=== PATIENT | female | born 1935 | race Caucasian/White ===

== ENCOUNTER 2019-07-13 01:10 | Day surgery (SDC) | payer MEDICARE, SELFPAY ==
[2019-07-06 14:05] VITALS: BMI 29.1
--- NOTE | 2019-07-11 13:28 | WPDANESEPP ---
Anes - Eval Pre Procedure Procedure: Operation Date: 07/13/19 08:30 Proposed Procedures p Esophagogastroduodenoscopy - Loco Danielle MD Date/Time: 07/11/19 13:28 Pre Op Diagnosis: Ulcer Patient Data Age: 83 Gender: F Height: 5 ft 1 in Weight: 70 kg Allergies Allergy/AdvReac Type Severity Reaction Status Date / Time Iodinated Contrast Media Allergy Severe severe Verified 07/06/19 13:52 itching Penicillins Allergy Mild Rash Verified 07/06/19 13:51 Home Medications Medication Instructions Recorded Confirmed Type Spiriva with HandiHaler 18 mcg INHALATION DAILY 04/02/19 07/06/19 History gabapentin 600 mg PO DAILY 04/02/19 07/06/19 History gabapentin 900 mg PO HS 04/02/19 07/06/19 History levothyroxine 100 mcg PO DAILY 04/02/19 07/06/19 History Brilinta 90 mg PO Q12HR #60 tablet NS 04/06/19 07/06/19 Rx aspirin 81 mg PO QAM #30 tablet 04/06/19 07/06/19 Rx atorvastatin 80 mg PO DAILY #30 tablet 04/06/19 07/06/19 Rx furosemide 20 mg PO DAILY #30 tablet 04/22/19 07/06/19 Rx lisinopril 2.5 mg PO QAM #30 tablet 04/22/19 07/06/19 Rx potassium chloride 10 meq PO DAILY #30 tablet 04/22/19 07/06/19 Rx pantoprazole 40 mg PO Q12HR #60 tablet 05/08/19 07/06/19 Rx carvedilol 3.125 mg PO BID 07/06/19 07/06/19 History ECG: [place] [address] [place] [address] Electrocardiograph Report Signed Patient: Mamie Beckham KMR#: [id number] : 1935cct:[id number] Age/Sex: 83 / FADM Date: 05/07/19 Loc: [id number]: Clau Lowery DO Ordering Physician: Jonah Becker III, DO Date of Service: 05/07/19 Procedure(s): CA 12 lead EKG Accession Number(s): [id number] cc: ~ Measurements Intervals [place] Rate: 89 P: -6 CA: 121 QRS: -13 QRSD: 86 T: 187 QT: 371 QTc: 454 Interpretive Statements SINUS RHYTHM ST-T WAVE ABNORMALITY IN ANT/LAT LEADS- CONSIDER ISCHEMIA BASELINE ARTIFACT- V4 ABNORMAL ECG Electronically Signed On 05-07-2019 7:00:56 GENDER STUDIES PROFESSOR by Scooter Zamudio D.O. Dictated By: Scooter Zamudio DO 05/07/19 0154 Other Studies: 04/08/19 Cardiac Cath: LAD PCI w/drug eluting stent s/p OH, EF 25% Patient hx anesthesia problems: none Family hx anesthesia problems: none PMFSH Social History Social History Smoking packs per day: 1 Smoking cigarettes per day: 20.0 Years smoked: 50 Smoking pack-years: 50.00 Smoking status: Former smoker Tobacco type: cigarettes Second hand tobacco smoke exposure: Yes Smoking end date: 03/27/19 Additional smoking assessment comments: smoked off and on those 50 years Alcohol intake: never Substance use: never Gender identity (if verbalized by the patient): Female Spiritual care concerns: No Agree to blood products: Yes Exam Day of Procedure 07/11/19 13:28
--- NOTE | 2019-07-11 13:51 | WPDANESEPP ---
Anes - Eval Pre Procedure Procedure: Operation Date: 07/13/19 08:30 Proposed Procedures p Esophagogastroduodenoscopy - Loco Danielle MD Date/Time: 07/11/19 13:51 Pre Op Diagnosis: Ulcer Patient Data Age: 83 Gender: F Height: 5 ft 1 in Weight: 70 kg Allergies Allergy/AdvReac Type Severity Reaction Status Date / Time Iodinated Contrast Media Allergy Severe severe Verified 07/06/19 13:52 itching Penicillins Allergy Mild Rash Verified 07/06/19 13:51 Home Medications Medication Instructions Recorded Confirmed Type Spiriva with HandiHaler 18 mcg INHALATION DAILY 04/02/19 07/06/19 History gabapentin 600 mg PO DAILY 04/02/19 07/06/19 History gabapentin 900 mg PO HS 04/02/19 07/06/19 History levothyroxine 100 mcg PO DAILY 04/02/19 07/06/19 History Brilinta 90 mg PO Q12HR #60 tablet NS 04/06/19 07/06/19 Rx aspirin 81 mg PO QAM #30 tablet 04/06/19 07/06/19 Rx atorvastatin 80 mg PO DAILY #30 tablet 04/06/19 07/06/19 Rx furosemide 20 mg PO DAILY #30 tablet 04/22/19 07/06/19 Rx lisinopril 2.5 mg PO QAM #30 tablet 04/22/19 07/06/19 Rx potassium chloride 10 meq PO DAILY #30 tablet 04/22/19 07/06/19 Rx pantoprazole 40 mg PO Q12HR #60 tablet 05/08/19 07/06/19 Rx carvedilol 3.125 mg PO BID 07/06/19 07/06/19 History Patient hx anesthesia problems: none Family hx anesthesia problems: none PMFSH Past Medical History Medical History Anxiety COPD (chronic obstructive pulmonary disease) Diabetes mellitus DVT (deep venous thrombosis) Emphysema of lung GERD (gastroesophageal reflux disease) Gout HLD (hyperlipidemia) Hypertension Hypothyroidism NSTEMI (non-ST elevated myocardial infarction) Peripheral neuropathy Pneumonia Rheumatoid arthritis Skin cancer Tobacco abuse Ulcer Surgical History Surgical History (Updated 07/11/19 @ 13:51 by Mela Padilla CRNA) H/O heart artery stent LAD drug-eluting stent H/O: hysterectomy History of appendectomy History of cholecystectomy History of total bilateral knee replacement Social History Social History Smoking packs per day: 1 Smoking cigarettes per day: 20.0 Years smoked: 50 Smoking pack-years: 50.00 Smoking status: Former smoker Tobacco type: cigarettes Second hand tobacco smoke exposure: Yes Smoking end date: 03/27/19 Additional smoking assessment comments: smoked off and on those 50 years Alcohol intake: never Substance use: never Gender identity (if verbalized by the patient): Female Spiritual care concerns: No Agree to blood products: Yes Exam Day of Procedure 07/11/19 13:51
--- NOTE | 2019-07-13 07:25 | PM.HPGS ---
History of Present Illness History of Present Illness Consent: Risks, benefits, and alternatives have been discussed and questions answered. Patient agrees to proceed with procedure. Chief complaint: Ulcer Narrative: Mamie Beckham is a 83 year old female was found have a large duodenal ulcer 2 months ago. At that time she was taking diclofenac which has been discontinued. She is no longer losing weight and in fact has gained 8 lb, probably due in part to the fact that she also stopped smoking 3 months ago. [facility] Past Medical History Medical History Anxiety COPD (chronic obstructive pulmonary disease) Diabetes mellitus DVT (deep venous thrombosis) Emphysema of lung GERD (gastroesophageal reflux disease) Gout HLD (hyperlipidemia) Hypertension Hypothyroidism NSTEMI (non-ST elevated myocardial infarction) Peripheral neuropathy Pneumonia Rheumatoid arthritis Skin cancer Tobacco abuse Ulcer Surgical History Surgical History H/O heart artery stent LAD drug-eluting stent H/O: hysterectomy History of appendectomy History of cholecystectomy History of total bilateral knee replacement Family History Family History Other Renal cancer CAD (coronary artery disease) Father Acute myocardial infarction Father Bladder cancer CAD (coronary artery disease) Mother CAD (coronary artery disease) Acute myocardial infarction Social History Social History Smoking packs per day: 1 Smoking cigarettes per day: 20.0 Years smoked: 50 Smoking pack-years: 50.00 Smoking status: Former smoker Tobacco type: cigarettes Second hand tobacco smoke exposure: Yes Smoking end date: 03/27/19 Additional smoking assessment comments: smoked off and on those 50 years Alcohol intake: never Substance use: never Gender identity (if verbalized by the patient): Female Spiritual care concerns: No Agree to blood products: Yes Meds Home Medications and Allergies Home Medications Medication Instructions Recorded Confirmed Type Spiriva with HandiHaler 18 mcg INHALATION DAILY 04/02/19 07/06/19 History gabapentin 600 mg PO DAILY 04/02/19 07/06/19 History gabapentin 900 mg PO HS 04/02/19 07/06/19 History levothyroxine 100 mcg PO DAILY 04/02/19 07/06/19 History Brilinta 90 mg PO Q12HR #60 tablet NS 04/06/19 07/06/19 Rx aspirin 81 mg PO QAM #30 tablet 04/06/19 07/06/19 Rx atorvastatin 80 mg PO DAILY #30 tablet 04/06/19 07/06/19 Rx furosemide 20 mg PO DAILY #30 tablet 04/22/19 07/06/19 Rx lisinopril 2.5 mg PO QAM #30 tablet 04/22/19 07/06/19 Rx potassium chloride 10 meq PO DAILY #30 tablet 04/22/19 07/06/19 Rx pantoprazole 40 mg PO Q12HR #60 tablet 05/08/19 07/06/19 Rx carvedilol 3.125 mg PO BID 07/06/19 07/06/19 History Allergies Allergy/AdvReac Type Severity Reaction Status Date / Time Iodinated Contrast Media Allergy Severe severe Verified 07/13/19 07:26 itching Penicillins Allergy Mild Rash Verified 07/13/19 07:26 Exam Const: General: alert Orientation/consciousness: patient oriented x3 Resp: Auscultation: clear to auscultation bilaterally Cardio: Rhythm: regular rhythm GI: GI Palp: Yes Soft to palpation and No Tenderness to palpation present (GI) Neuro: General: patient oriented x3 Assessment and Plan Assessment and plan (1) Duodenal ulcer: Code(s): K26.9 - Duodenal ulcer, unspecified as acute or chronic, without hemorrhage or perforation Status: Acute Assessment and Plan: EGD with possible biopsy or dilatation or cautery.
[2019-07-13 07:30] VITALS: BP 127/79; PULSE 75; RESP 18; TEMP 36.3; O2SAT 98
[2019-07-13] MEDS: LACTATED RINGERS 1,000 ML 150 ML IV CONT (07:42)
--- NOTE | 2019-07-13 08:02 | WPDANESEFPP ---
Anes - Eval Final PreProcedure Day of Procedure 07/13/19 08:02 Patient weight: overweight Heart: regular rate and rhythm Lungs: clear to auscultation Airway: Mallampati scale class II Neurological: alert and oriented Last oral intake: >/= 8 hours ASA classification: III Emergent: no Anesthetic plan: proceed Anesthesia type and monitoring: general GIVS and standard monitoring Informed Consent: The patient's anesthetic plan and its attendant risks and benefits were discussed with the patient/family/POA. Questions were solicited and answers provided to the satisfaction of the patient/family/POA.
[2019-07-13 08:38] VITALS: BP 102/39; PULSE 59; RESP 19; O2SAT 100
[2019-07-13 08:48] VITALS: BP 108/39; PULSE 66; RESP 19; O2SAT 100
[2019-07-13 08:58] VITALS: BP 125/40; PULSE 66; RESP 19; O2SAT 100
== END 2019-07-13 09:13 | disposition home or self-care (01) ==
PROVIDERS: PCP Family Medicine; Visit Provider Internal Medicine Gastroenterology
PROC: 0DJ08ZZ Inspection of Upper Intestinal Tract, Via Natural or Artificial Opening Endoscopic (ICD-10-PCS; CPT 43235; principal; 2019-07-13 08:30)
DX: Z09 Encounter for follow-up examination after completed treatment for conditions other than malignant neoplasm (principal); K21.9 Gastro-esophageal reflux disease without esophagitis; Z87.11 Personal history of peptic ulcer disease; Z95.5 Presence of coronary angioplasty implant and graft; I10 Essential (primary) hypertension; E78.5 Hyperlipidemia, unspecified; E03.9 Hypothyroidism, unspecified; I25.2 Old myocardial infarction; E11.40 Type 2 diabetes mellitus with diabetic neuropathy, unspecified; M10.9 Gout, unspecified; J44.9 Chronic obstructive pulmonary disease, unspecified; M06.9 Rheumatoid arthritis, unspecified; F41.9 Anxiety disorder, unspecified; F17.210 Nicotine dependence, cigarettes, uncomplicated; Z79.01 Long term (current) use of anticoagulants; Z79.82 Long term (current) use of aspirin; Z86.718 Personal history of other venous thrombosis and embolism
CPT/HCPCS: 43235; J2704; J7120

== ENCOUNTER 2020-04-21 10:01 | Outpatient (CLI) | payer MEDICARE, SELFPAY ==
--- NOTE | ~2020-04-21 | CT_ITS ---
EXAMINATION: CT lung screening EXAM DATE: 04/21/2020 10:21 INDICATION: Personal history of nicotine dependence. TECHNIQUE: Spiral low dose CT of the chest without contrast. Axial, coronal and sagittal images were reviewed. The dose-length product (DLP) for this examination was 73.15 mGy-cm. The exposure was ta ilored according to patient size (auto mA exposure control), and iterative reconstruction (ASIR) was used as additional dose reduction technique. There is no prior study for comparison. FINDINGS: There is mild emphysema. The ascending aorta measures 4.5 cm, mildly dilated. Tracheobron chial tree is patent. There is no mediastinal, hilar or axillary lymphadenopathy. There are no pl eural or pericardial effusions. There is no pneumothorax. Heart normal in size. There is modera te left anterior descending coronary arterial calcification, arterial sclerosis. There are cholecyste ctomy clips. There is thoracic spondylosis without osteoblastic or osteolytic lesions identified. IMPRESSION: 1. Lung-RADS category 1S, negative (<1%chance of malignancy); recommend continued LDCT screening in 1 year. 2. Mildly aneurysmal ascending aorta. 3. Moderate LAD coronary artery calcifications. Reviewed, dictated and finalized at location A. ERTINE INSTALLER IMPRESSION: 1. Lung-RADS category 1S, negative (<1%chance of malignancy); recommend contin ued LDCT screening in 1 year. 2. Mildly aneurysmal ascending aorta. 3. Moderate LAD coronary artery calcifications.
== END 2020-04-21 10:02 | disposition home or self-care (01) ==
PROVIDERS: PCP Family Medicine; Visit Provider Nurse Practitioner Family
DX: Z12.2 Encounter for screening for malignant neoplasm of respiratory organs (principal); Z87.891 Personal history of nicotine dependence
CPT/HCPCS: G0297

== ENCOUNTER 2021-04-08 19:22 | Emergency (ER) | payer MEDICARE, SELFPAY ==
[2021-04-08] VITALS (7 sets, daily range): BP systolic 112–157; BP diastolic 59–76; PULSE 75–91; RESP 14–22; TEMP 36.8; O2SAT 94–97
--- NOTE | ~2021-04-08 | XR_ITS ---
XR chest 2V DATE: 04/08/2021 19:58 INDICATION: Shortness of breath, congestion, allergies. Rhinorrhea. TECHNIQUE: PA and lateral views COMPARISON: 04/21/2020 CT lung screening FINDINGS: Normal heart size. No hilar or mediastinal enlargement. The lungs are hyperinflated but clear of infiltrate or consolidation. 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 No pleural effusion or pulmonary vascular congestion o r pneumothorax. Aortic calcification and mild tortuosity. Thoracolumbar scoliosis. Diffuse osteopenia. Status post cholecystectomy. IMPRESSION: Bilateral hyperinflation consistent with emphysema No active cardiopulmonary disease Reviewed, dictated and finalized at location A.
--- NOTE | 2021-04-08 19:30 | ECG_ITS ---
Measurements Intervals [place] Rate: 89 P: 60 SC: 156 QRS: -3 QRSD: 80 T: 58 QT: 361 QTc: 440 Interpretive Statements SINUS RHYTHM BORDERLINE ST-T WAVE ABNORMALITY- HIGH LATERAL LEADS BASELINE ARTIFACT- I, II, III, AVR, AVL, AVF, V1-V2, V6 BORDERLINE ECG Electronically Signed On 04-08-2021 20:06:36 CDT by Scooter Zamudio D.O.
[2021-04-08 19:54] LABS: Basophils Absolute Auto 0.1 K/mm3 (0.0-0.1); Basophils Percent Auto 0.5 % (0.2-1.2); Eosinophils Absolute Auto 0.2 K/mm3 (0-0.3); Eosinophils Percent Auto 1.4 % (0-4.4); Hematocrit 40.3 % (37.0-47.0); Hemoglobin 13.3 g/dL (12.0-15.0); Immature Granulocyte Absolute 0.04 K/mm3 (0.00-0.031); Immature Granulocyte Percent A 0.3 % (0-0.5); Lymphocytes Absolute Auto 4.21 K/mm3 (0.9-3.2); Lymphocytes Percent Auto 31.9 % (18.3-44.2); Mean Corpuscular Hemoglobin 30.9 pg (26-34); Mean Corpuscular Volume 93.7 fl (80-100); Mean Platelet Volume 10.7 fl (7.4-10.4); Monocytes Absolute Auto 0.7 K/mm3 (0.1-0.6); Monocytes Percent Auto 5.3 % (2.6-8.5); Neutrophils Percent Auto 60.6 % (45.5-73.1); Platelet Count Result 251 k/mm3 (150-375); White Blood Count 13.2 K/mm3 (4.5-10.0)
[2021-04-08 20:12] LABS: Prothrombin Time 13.2 Seconds (11.1-14.7)
[2021-04-08 20:13] LABS: Anion Gap 10 mmol/L (8-16); Blood Urea Nitrogen 19 mg/dL (7-17); Calcium 9.9 mg/dL (8.4-10.2); Carbon Dioxide 24 mmol/L (22-30); Chloride 101 mmol/L (98-107); Estimated CRCL calculation 43 ml/min; Estimated Glomerular Filt Rate > 60; Glucose 133 mg/dL (65-110); Partial Thromboplastin Time 25.5 SECONDS (22.3-36.8); Potassium 4.6 mmol/L (3.4-5.0); Sodium 135 mmol/L (137-145)
[2021-04-08 20:24] LABS: NT Pro B Type Natriuretic Pept 473 pg/mL (5-100); Troponin I < 0.012 ng/mL (0.000-0.034)
--- NOTE | 2021-04-08 21:25 | PC.NURSE ---
Pt alert and upright on stretcher at this time. Pt c/o pain in 9/10 in frontal head, but states SOB has improved.
[2021-04-08] MEDS: IPRATROPIUM BR 0.02% INH SOLN 0.5 MG/2.5 ML VIAL INHALATION (21:36)
[2021-04-08] MEDS: ALBUTEROL SULFATE NEB 2.5 MG/0.5 ML INH 5 MG INHALATION (21:36)
--- NOTE | 2021-04-08 21:54 | ED.SOB ---
HPI - SOB/Dyspnea General Chief Complaint: Shortness of Breath/Dyspnea Stated Complaint: short of breath nose running Time Seen by Provider: 04/08/21 20:45 Source: patient and RN notes reviewed Mode of arrival: ambulatory Limitations: no limitations History of Present Illness HPI Narrative: This is an 85 year old female with history of hypertension, coronary artery disease, sinus disease, and COPD who presents for evaluation runny nose and sneezing. She reports she had old carpet removed from her house on yesterday. This afternoon on her return home she develop runny nose, sneezing, sinus congestion, headache. She reports chronic shortness of breath but she does not think it is worse. She denies chest pain, fever, chills, nausea or vomiting. She reports minimal cough. She takes Claritin daily for her sinus disease. She last used her albuterol inhaler at noon. She denies any sick contacts and she is vaccinated for COVID. Related Data Home Medications Medication Instructions Recorded Confirmed Spiriva with HandiHaler 18 mcg INHALATION DAILY 04/02/19 09/09/20 gabapentin 600 mg PO DAILY 04/02/19 09/09/20 gabapentin 900 mg PO HS 04/02/19 09/09/20 levothyroxine 100 mcg PO DAILY 04/02/19 09/09/20 carvedilol 3.125 mg PO BID 07/06/19 09/09/20 Allergies Allergy/AdvReac Type Severity Reaction Status Date / Time Iodinated Contrast Media Allergy Severe severe Verified 04/08/21 23:46 itching Penicillins Allergy Mild Rash Verified 04/08/21 23:46 Review of Systems Review of Systems: All systems reviewed & are unremarkable except as noted in HPI and below PMFSH Past Medical History Medical History (Updated 04/09/21 @ 00:00 by Background Daemon) Anxiety COPD (chronic obstructive pulmonary disease) Diabetes mellitus DVT (deep venous thrombosis) Emphysema of lung GERD (gastroesophageal reflux disease) Gout HLD (hyperlipidemia) Hypertension Hypothyroidism NSTEMI (non-ST elevated myocardial infarction) Peripheral neuropathy Pneumonia Rheumatoid arthritis Skin cancer Tobacco abuse Ulcer Surgical History Surgical History H/O heart artery stent LAD drug-eluting stent H/O: hysterectomy History of appendectomy History of cholecystectomy History of total bilateral knee replacement Family History Family History Other Renal cancer CAD (coronary artery disease) Father Acute myocardial infarction Father Bladder cancer CAD (coronary artery disease) Mother CAD (coronary artery disease) Acute myocardial infarction Social History Social History Smoking packs per day: 1 Smoking cigarettes per day: 20.0 Years smoked: 50 Smoking pack-years: 50.00 Smoking status: Former smoker Tobacco type: cigarettes Second hand tobacco smoke exposure: Yes Smoking end date: 03/27/19 Additional smoking assessment comments: smoked off and on those 50 years Alcohol intake: never Substance use: never Gender identity (if verbalized by the patient): Female Spiritual care concerns: No Agree to blood products: Yes Exam Const: General: no acute distress and alert Orientation/consciousness: patient oriented x3 HENMT: Head: normocephalic and atraumatic Mouth: Yes Normal oral and palatal mucosa present, Yes lip normal and Yes oropharynx normal Eyes: EOM: EOMs intact bilaterally Chest: Chest palpation & inspection: normal inspection of the chest Resp: Effort & Inspection: normal respiratory effort, not labored, no retractions and not tachypneic Auscultation: wheezes expiratory wheezes Cardio: Rate: regular rate Rhythm: regular rhythm Heart sounds: no murmurs GI: GI Palp: Yes Soft to palpation, No Tenderness to palpation present (GI) and No Guarding due to palpation present (GI) Auscultation: normal bowel sounds Skin: Ge
[2021-04-08] MEDS: FLUTICASONE PROPIONATE 0.05% NA SPR 16 GM BTL (*BKC) 2 SPRAY NASAL (22:23)
[2021-04-08] MEDS: predniSONE 20 MG TABLET 60 MG PO (22:24)
[2021-04-08] MEDS: DOXYCYCLINE HYCLATE 100 MG TABLET PO (23:45)
== END 2021-04-08 23:50 | disposition home or self-care (01) ==
PROVIDERS: Emergency Medicine; Emergency Provider General Practice; PCP Family Medicine
DX: J30.9 Allergic rhinitis, unspecified (principal); J44.1 Chronic obstructive pulmonary disease with (acute) exacerbation; D72.829 Elevated white blood cell count, unspecified; I10 Essential (primary) hypertension; I25.10 Atherosclerotic heart disease of native coronary artery without angina pectoris; I25.2 Old myocardial infarction; E11.42 Type 2 diabetes mellitus with diabetic polyneuropathy; M06.9 Rheumatoid arthritis, unspecified; E03.9 Hypothyroidism, unspecified; K21.9 Gastro-esophageal reflux disease without esophagitis; M10.9 Gout, unspecified; J32.9 Chronic sinusitis, unspecified; Z86.718 Personal history of other venous thrombosis and embolism; Z85.828 Personal history of other malignant neoplasm of skin; Z96.653 Presence of artificial knee joint, bilateral; Z95.5 Presence of coronary angioplasty implant and graft; Z87.891 Personal history of nicotine dependence; R94.31 Abnormal electrocardiogram [ECG] [EKG]; Z79.82 Long term (current) use of aspirin
CPT/HCPCS: 36415; 71046; 80048; 83880; 84484; 85025; 85610; 85730; 93005; 94640; 99284; A9270; J7512

== ENCOUNTER 2021-12-08 15:15 | Emergency (ER) | payer MEDICARE, SELFPAY ==
--- NOTE | ~2021-12-08 | XR_ITS ---
EXAMINATION: XR foot LT min 3V DATE: 12/08/2021 16:41 INDICATION: Left foot pain TECHNIQUE: Dorsoplantar, lateral, and 2 oblique views of the left foot were obtained. COMPARISON: None. FINDINGS: There is a questionable lucency in the base of the third proximal phalanx. A plantar calcan eal enthesophyte is noted. There is moderate osteoarthritis of the tibiotalar joint. Mild osteoarthri tis is noted in multiple interphalangeal joints. IMPRESSION: 1. Possible nondisplaced fracture in the base of the third proximal phalanx. Reviewed, dictated and finalized at location B.
--- NOTE | ~2021-12-08 | XR_ITS ---
EXAMINATION: [id number] INDICATION: Left chest pain TECHNIQUE: 3 views of the left ribs were obtained. COMPARISON: None. FINDINGS: The bones are osteopenic which limits the sensitivity for fracture however no displaced rib fracture is seen. No acute airspace opacities are identified. No pleural effusion or pneumothorax. T he cardiomediastinal silhouette is normal. Calcified right hilar lymph nodes are consistent with old granulomatous disease. There is moderate osteoarthritis of the shoulder. IMPRESSION: 1. No acute cardiopulmonary abnormality or evidence of displaced rib fracture. Reviewed, dictated and finalized at location B.
[2021-12-08 15:22] VITALS: BP 139/101; PULSE 105; RESP 28; TEMP 36.1; O2SAT 97
--- NOTE | 2021-12-08 16:03 | ED.GENADULT ---
HPI - General Adult General Chief complaint: Unspecified Stated complaint: side and foot pain Time Seen by Provider: 12/08/21 15:43 History of Present Illness HPI narrative: 86-year-old female presents emergency room secondary pain to her left foot. Patient states she is got a longstanding history of peripheral neuropathy and recently started some new treatments which have tremendously reduced the amount of pain she is having. She admitted any treatments twice a week. However she is having pain now to the top of her left foot which is different than her neuropathy pain denies any trauma. She states the only way she can get relief if she holds her foot up and flexes her toes backwards to relieve the pain. She is also complains of pain to the left posterior chest and rib area. This started 2 days ago denies any traumas or falls. She states she took half of a oxycodone at home earlier but did not get significant relief. Related Data Home Medications Medication Instructions Recorded Confirmed gabapentin 300 mg capsule 600 mg PO DAILY 04/02/19 09/09/20 gabapentin 300 mg capsule 900 mg PO HS 04/02/19 09/09/20 levothyroxine 100 mcg tablet 100 mcg PO DAILY 04/02/19 09/09/20 tiotropium bromide 18 mcg capsule 18 mcg inhalation DAILY 04/02/19 09/09/20 with inhalation device (Spiriva with HandiHaler) carvedilol 3.125 mg tablet 3.125 mg PO BID 07/06/19 09/09/20 Allergies Allergy/AdvReac Type Severity Reaction Status Date / Time Iodinated Contrast Media Allergy Severe severe Verified 04/08/21 23:46 itching Penicillins Allergy Mild Rash Verified 04/08/21 23:46 Review of Systems Review of Systems: CONSTITUTIONAL: Denies fever, chills, or sweats. EYES: Denies visual changes, redness, or discharge. ENT: Denies rhinorrhea, congestion, sore throat, or otalgia. CARDIOVASCULAR: Denies chest pain, palpitations, or edema. RESPIRATORY: Denies cough or dyspnea. GASTROINTESTINAL: Denies abdominal pain, nausea, vomiting, or diarrhea. GENITOURINARY: Denies dysuria or hematuria. SKIN: Denies rash or itching. MUSCULOSKELETAL: Pain to the left foot. History of peripheral neuropathy. NEUROLOGIC: Denies headache, numbness, or weakness. PSYCHIATRIC: Denies anxiety or depression. [facility] Past Medical History Medical History (Updated 12/08/21 @ 17:18 by Baltazar Trotter DO) Anxiety COPD (chronic obstructive pulmonary disease) Diabetes mellitus DVT (deep venous thrombosis) Emphysema of lung GERD (gastroesophageal reflux disease) Gout HLD (hyperlipidemia) Hypertension Hypothyroidism NSTEMI (non-ST elevated myocardial infarction) Peripheral neuropathy Pneumonia Rheumatoid arthritis Skin cancer Tobacco abuse Ulcer Surgical History Surgical History H/O heart artery stent LAD drug-eluting stent H/O: hysterectomy History of appendectomy History of cholecystectomy History of total bilateral knee replacement Family History Family History Other Renal cancer CAD (coronary artery disease) Father Acute myocardial infarction Father Bladder cancer CAD (coronary artery disease) Mother CAD (coronary artery disease) Acute myocardial infarction Social History Social History Smoking packs per day: 1 Smoking cigarettes per day: 20.0 Years smoked: 50 Smoking pack-years: 50.00 Smoking status: Former smoker Tobacco type: cigarettes Second hand tobacco smoke exposure: Yes Smoking end date: 03/27/19 Additional smoking assessment comments: smoked off and on those 50 years Alcohol intake: never Substance use: never Gender identity (if verbalized by the patient): Female Spiritual care concerns: No Agree to blood products: Yes Exam Narrative: APPEARANCE: Well appearing, no pain or distress, well-nourished. Head normocephalic and atraumat
[2021-12-08] MEDS: NAPROXEN 500 MG TABLET PO (16:16)
== END 2021-12-08 17:29 | disposition home or self-care (01) ==
PROVIDERS: Emergency Provider Emergency Medicine; PCP Family Medicine
DX: M19.072 Primary osteoarthritis, left ankle and foot (principal); S29.012A Strain of muscle and tendon of back wall of thorax, initial encounter; J43.9 Emphysema, unspecified; E11.42 Type 2 diabetes mellitus with diabetic polyneuropathy; E78.5 Hyperlipidemia, unspecified; E03.9 Hypothyroidism, unspecified; I25.2 Old myocardial infarction; I10 Essential (primary) hypertension; M10.9 Gout, unspecified; M06.9 Rheumatoid arthritis, unspecified; Z87.01 Personal history of pneumonia (recurrent); K21.9 Gastro-esophageal reflux disease without esophagitis; Z85.828 Personal history of other malignant neoplasm of skin; Z95.5 Presence of coronary angioplasty implant and graft; Z96.653 Presence of artificial knee joint, bilateral; Z79.82 Long term (current) use of aspirin; R93.6 Abnormal findings on diagnostic imaging of limbs; X58.XXXA Exposure to other specified factors, initial encounter
CPT/HCPCS: 71101; 73630; 99284; A9270

== ENCOUNTER 2023-03-02 08:26 | Emergency (ER) | payer MEDICARE, SELFPAY ==
[2023-03-02] VITALS (13 sets, daily range): BP systolic 112–146; BP diastolic 47–94; PULSE 64–92; RESP 15–23; TEMP 36.6; O2SAT 92–100
--- NOTE | ~2023-03-02 | XR_ITS ---
EXAMINATION: XR chest 2V DATE: 03/02/2023 08:51 INDICATION: Chest pain and cough TECHNIQUE: PA and lateral views of the chest are obtained. COMPARISON: 04/08/2021 FINDINGS: The lungs are free of acute opacities. No pleural effusion or pneumothorax. The cardiomedia stinal silhouette is normal. There is moderate thoracic spondylosis. IMPRESSION: 1. No acute cardiopulmonary abnormality. Reviewed, dictated and finalized at location F.
--- NOTE | 2023-03-02 08:29 | ECG_ITS ---
Measurements Intervals [place] Rate: 80 P: 73 AK: 161 QRS: -4 QRSD: 85 T: 59 QT: 349 QTc: 404 Interpretive Statements SINUS RHYTHM EARLY PRECORDIAL R/S TRANSITION BORDERLINE ST-T WAVE ABNORMALITY- HIGH LATERAL LEADS BASELINE ARTIFACT- I, II, III BORDERLINE ECG COMPARED TO ECG 04/08/2021 19:36:28 NO SIGNIFICANT CHANGES Electronically Signed On 03-02-2023 20:15:04 CDT by Scooter Zamudio D.O.
[2023-03-02 08:46] LABS: Basophils Absolute Auto 0.1 K/mm3 (0.0-0.1); Basophils Percent Auto 0.3 % (0.2-1.2); Eosinophils Absolute Auto 0.2 K/mm3 (0-0.3); Eosinophils Percent Auto 1.3 % (0-4.4); Hemoglobin 12.4 g/dL (12.0-15.0); Immature Granulocyte Absolute 0.03 K/mm3 (0.00-0.031); Immature Granulocyte Percent A 0.2 % (0-0.5); Lymphocytes Absolute Auto 3.52 K/mm3 (0.9-3.2); Lymphocytes Percent Auto 24.5 % (18.3-44.2); Mean Corpuscular HGB Conc 31.8 g/dl (32-36); Mean Corpuscular Hemoglobin 28.9 pg (26-34); Mean Corpuscular Volume 90.9 fl (80-100); Mean Platelet Volume 11.4 fl (7.4-10.4); Monocytes Percent Auto 6.8 % (2.6-8.5); Neutrophils Absolute Auto 9.6 K/mm3 (1.3-6.7); Neutrophils Percent Auto 66.9 % (45.5-73.1); Platelet Count Result 205 k/mm3 (150-375); Red Blood Count 4.29 M/mm3 (4.2-5.4); Red Cell Distribution Width 14.9 % (11.5-14.5); White Blood Count 14.4 K/mm3 (4.5-10.0)
[2023-03-02 08:57] LABS: Alanine Aminotransferase 18 U/L (6-35); Albumin Level 4.1 g/dL (3.5-5.1); Alkaline Phosphatase 111 U/L (38-126); Anion Gap 8 mmol/L (8-16); Aspartate Amino Transferase 21 U/L (14-36); Bilirubin,Total 0.6 mg/dL (0.2-1.3); Blood Urea Nitrogen 10 mg/dL (7-17); Calcium 9.2 mg/dL (8.4-10.2); Carbon Dioxide 27 mmol/L (22-30); Chloride 101 mmol/L (98-107); Estimated CRCL calculation 48 ml/min; Estimated Glomerular Filt Rate > 60; Glucose 193 mg/dL (65-110); Lipase 18 U/L (23-300); Potassium 4.1 mmol/L (3.4-5.0); Sodium 136 mmol/L (137-145)
[2023-03-02 09:00] LABS: Prothrombin Time 13.1 Seconds (11.1-14.7)
[2023-03-02 09:01] LABS: Partial Thromboplastin Time 27.4 SECONDS (22.3-36.8)
[2023-03-02 09:07] LABS: Troponin I < 0.012 ng/mL (0.000-0.034)
--- NOTE | 2023-03-02 09:13 | ED.CHESTPAIN ---
HPI - Chest Pain General Chief Complaint: Chest Pain Stated Complaint: chest pressure Time Seen by Provider: 03/02/23 09:12 Source: patient and family Mode of arrival: wheelchair Limitations: no limitations History of Present Illness HPI narrative: This is an 87-year-old female that presents to the ER for chest tightness. Associated with productive cough, congestion, rhinorrhea, wheezing, and dyspnea. Reports her chest pain is worse with coughing. Reports chronic sinus issues. Also history of COPD. Denies fever or lower extremity edema. Related Data Home Medications Medication Instructions Recorded Confirmed gabapentin 300 mg capsule 600 mg PO DAILY 04/02/19 09/09/20 gabapentin 300 mg capsule 900 mg PO HS 04/02/19 09/09/20 levothyroxine 100 mcg tablet 100 mcg PO DAILY 04/02/19 09/09/20 tiotropium bromide 18 mcg capsule 18 mcg inhalation DAILY 04/02/19 09/09/20 with inhalation device (Spiriva with HandiHaler) carvedilol 3.125 mg tablet 3.125 mg PO BID 07/06/19 09/09/20 Allergies Allergy/AdvReac Type Severity Reaction Status Date / Time Iodinated Contrast Media Allergy Severe severe Verified 03/02/23 08:44 itching Penicillins Allergy Mild Rash Verified 03/02/23 08:44 Review of Systems Review of Systems: CONSTITUTIONAL: Denies fever ENT: Reports rhinorrhea, congestion, sore throat CARDIOVASCULAR: Reports chest pain. Denies edema. RESPIRATORY: Reports cough and dyspnea. All systems reviewed & are unremarkable except as noted in HPI and below PMFSH Past Medical History Medical History (Updated 03/02/23 @ 12:33 by Flora Hernandez PA-C) Anxiety COPD (chronic obstructive pulmonary disease) Diabetes mellitus DVT (deep venous thrombosis) Emphysema of lung GERD (gastroesophageal reflux disease) Gout HLD (hyperlipidemia) Hypertension Hypothyroidism NSTEMI (non-ST elevated myocardial infarction) Peripheral neuropathy Pneumonia Rheumatoid arthritis Skin cancer Tobacco abuse Ulcer Surgical History Surgical History H/O heart artery stent LAD drug-eluting stent H/O: hysterectomy History of appendectomy History of cholecystectomy History of total bilateral knee replacement Family History Family History Other Renal cancer CAD (coronary artery disease) Father Acute myocardial infarction Father Bladder cancer CAD (coronary artery disease) Mother CAD (coronary artery disease) Acute myocardial infarction Social History Social History Smoking packs per day: 1 Smoking cigarettes per day: 20.0 Years smoked: 50 Smoking pack-years: 50.00 Smoking status: Former smoker Tobacco type: cigarettes Second hand tobacco smoke exposure: Yes Smoking end date: 03/27/19 Additional smoking assessment comments: smoked off and on those 50 years Alcohol intake: never Substance use: never Gender identity (if verbalized by the patient): Female Spiritual care concerns: No Agree to blood products: Yes Exam Narrative: GENERAL: Elderly, well-nourished, and in no acute distress. HEAD: Normocephalic, atraumatic. EYES: EOMI. ENT: Nares clear, no rhinorrhea or epistaxis. Mucous membranes moist. Oropharynx without tonsillar hypertrophy exudate or other lesions. Bilateral TMs pearly gardiner non-bulging NECK: Supple. No adenopathy or masses. CHEST: No respiratory distress. Lung sounds diminished with diffuse expiratory wheezing. No rales or rhonchi HEART: Regular rate and rhythm. No murmur heard. Normal peripheral pulses. EXTREMITIES: Normal range of motion. No edema. SKIN: Warm, dry, no rash. NEURO: No focal deficits. Alert and oriented x3. PSYCH: Normal mood and affect Course Course Emergency Course: Chest tightness relieved with nebulizer treatment. Reports intermittent chest discomfort with coughing. Report
[2023-03-02] MEDS: ALBUTEROL SULFATE NEB 2.5 MG/3 ML INH INHALATION ×2 (09:47→11:17)
[2023-03-02] MEDS: IPRATROPIUM BR 0.02% INH SOLN 0.5 MG/2.5 ML VIAL INHALATION ×2 (09:47→11:17)
[2023-03-02] MEDS: methylPREDNISolone SOD SUCC 125 MG VIAL IV PUSH (09:59)
[2023-03-02] MEDS: ACETAMINOPHEN 500 MG TABLET 1000 MG PO (10:01)
[2023-03-02 10:56] LABS: Influenza A QL RT-PCR Negative (Negative); Influenza B QL RT-PCR Negative (Negative); RSV RNA, RT-PCR Negative (Negative); SARS-CoV-2 RNA PCR Negative (Negative)
[2023-03-02 12:06] LABS: Troponin I < 0.012 ng/mL (0.000-0.034)
[2023-03-02] MEDS: levoFLOXacin 500 MG TABLET PO (12:40)
== END 2023-03-02 13:12 | disposition home or self-care (01) ==
PROVIDERS: Emergency Medicine; Emergency Provider Physician Assistant; PCP Family Medicine
DX: J43.9 Emphysema, unspecified (principal); Z20.822 Contact with and (suspected) exposure to COVID-19; I25.2 Old myocardial infarction; E11.42 Type 2 diabetes mellitus with diabetic polyneuropathy; I10 Essential (primary) hypertension; E78.5 Hyperlipidemia, unspecified; E03.9 Hypothyroidism, unspecified; K21.9 Gastro-esophageal reflux disease without esophagitis; M06.9 Rheumatoid arthritis, unspecified; M10.9 Gout, unspecified; Z96.653 Presence of artificial knee joint, bilateral; Z87.891 Personal history of nicotine dependence; Z86.718 Personal history of other venous thrombosis and embolism; Z87.01 Personal history of pneumonia (recurrent); Z85.828 Personal history of other malignant neoplasm of skin; Z90.710 Acquired absence of both cervix and uterus; Z90.49 Acquired absence of other specified parts of digestive tract; Z79.82 Long term (current) use of aspirin; R94.31 Abnormal electrocardiogram [ECG] [EKG]
CPT/HCPCS: 36415; 71046; 80053; 83690; 84484; 85025; 85610; 85730; 87070; 87205; 87637; 93005; 94640; 96374; 99284; A9270; J2930

== ENCOUNTER 2023-06-04 07:11 | Emergency (ER) | payer MEDICARE, SELFPAY ==
--- NOTE | 2023-06-04 08:55 | ED.GENADULT ---
HPI - General Adult General Chief complaint: Unspecified Stated complaint: sciatica Time Seen by Provider: 06/04/23 08:56 Source: patient Mode of arrival: ambulatory Limitations: no limitations History of Present Illness HPI narrative: Mamie is an 87-year-old female patient presenting to the ER today with complaints of right sciatica pain and bilateral hand pain for the past few days. She reports she has a lot of issues with her hands and has had injections in her hands before for carpal tunnel. States she is not able to svp operations tightly as her hands hurt. History of arthritis in her hands as well. Also reporting right-sided pain to the posterior hip radiating down to foot. Also reports some knee pain with this. No known injury. She denies any pain in her groin, saddle anesthesia, or loss of bowel or bladder. History of gout Related Data Home Medications Medication Instructions Recorded Confirmed gabapentin 300 mg capsule 600 mg PO DAILY 04/02/19 09/09/20 gabapentin 300 mg capsule 900 mg PO HS 04/02/19 09/09/20 levothyroxine 100 mcg tablet 100 mcg PO DAILY 04/02/19 09/09/20 tiotropium bromide 18 mcg capsule 18 mcg inhalation DAILY 04/02/19 09/09/20 with inhalation device (Spiriva with HandiHaler) carvedilol 3.125 mg tablet 3.125 mg PO BID 07/06/19 09/09/20 Allergies Allergy/AdvReac Type Severity Reaction Status Date / Time Iodinated Contrast Media Allergy Severe severe Verified 03/02/23 08:44 itching Penicillins Allergy Mild Rash Verified 03/02/23 08:44 Review of Systems Review of Systems: Pertinent positives per HPI. Patient denies any fever, chills, rash, headache, visual changes, dizziness, cough, runny nose, sore throat, shortness of breath, chest pain, palpitations, nausea, vomiting, diarrhea, constipation, abdominal pain, or any urinary issues. [facility] Past Medical History Medical History Anxiety COPD (chronic obstructive pulmonary disease) Diabetes mellitus DVT (deep venous thrombosis) Emphysema of lung GERD (gastroesophageal reflux disease) Gout HLD (hyperlipidemia) Hypertension Hypothyroidism NSTEMI (non-ST elevated myocardial infarction) Peripheral neuropathy Pneumonia Rheumatoid arthritis Skin cancer Tobacco abuse Ulcer Surgical History Surgical History H/O heart artery stent LAD drug-eluting stent H/O: hysterectomy History of appendectomy History of cholecystectomy History of total bilateral knee replacement Family History Family History Other Renal cancer CAD (coronary artery disease) Father Acute myocardial infarction Father Bladder cancer CAD (coronary artery disease) Mother CAD (coronary artery disease) Acute myocardial infarction Social History Social History Smoking packs per day: 1 Smoking cigarettes per day: 20.0 Years smoked: 50 Smoking pack-years: 50.00 Smoking status: Former smoker Tobacco type: cigarettes Second hand tobacco smoke exposure: Yes Smoking end date: 03/27/19 Additional smoking assessment comments: smoked off and on those 50 years Alcohol intake: never Substance use: never Gender identity (if verbalized by the patient): Female Spiritual care concerns: No Agree to blood products: Yes Comments At the time of my signature, I reviewed and agree with the nursing past medical, surgical, social, and family history. There is no relevant family history pertinent to the patient complaint. Exam Narrative: General: Well-developed, well nourished, in no apparent distress Head: Normocephalic, atraumatic. Cardio: Regular rate and rhythm, s1 and s2 normal, no murmur appreciated. Resp: Clear to auscultation bilaterally, no rhonchi, rales, wheezing or rubs. Musculoskeletal: No d
[2023-06-04 10:03] VITALS: RESP 16
== END 2023-06-04 10:03 | disposition home or self-care (01) ==
LOC: ANHED 09:35
PROVIDERS: Emergency Provider Nurse Practitioner Family; PCP Family Medicine
DX: M53.3 Sacrococcygeal disorders, not elsewhere classified (principal); M19.042 Primary osteoarthritis, left hand; M19.041 Primary osteoarthritis, right hand; E78.5 Hyperlipidemia, unspecified; I10 Essential (primary) hypertension; E03.9 Hypothyroidism, unspecified; E11.9 Type 2 diabetes mellitus without complications; J43.9 Emphysema, unspecified; I25.2 Old myocardial infarction; Z86.718 Personal history of other venous thrombosis and embolism; Z87.891 Personal history of nicotine dependence
CPT/HCPCS: 99281

== ENCOUNTER 2023-06-09 06:16 | Emergency (ER) | payer MEDICARE, SELFPAY ==
[2023-06-09] VITALS (16 sets, daily range): BP systolic 129–154; BP diastolic 53–117; PULSE 52–95; RESP 11–22; TEMP 36.2; O2SAT 94–100
--- NOTE | ~2023-06-09 | XR_ITS ---
XR chest 1V DATE: 06/09/2023 07:41 INDICATION: Wheezing TECHNIQUE: AP chest COMPARISON: 03/02/2023 PA and lateral chest FINDINGS: Heart size is within normal range. Is aortic calcification and mild unfolding. No hilar or mediastinal enlargement is evident. Calcified right hilar and azygos lymph nodes consistent with old pulmonary granulomatous disease. The lungs are moderately hyperinflated but clear of infiltrate or consolidation. No pleural effusion or pulmonary vascular congestion or pneumothorax. Diffuse osteopenia. There is thoracic dextroscoliosis, lumbar levoscoliosis. IMPRESSION: Moderate hyperinflation; no active cardiopulmonary disease Aortic atherosclerosis Osteopenia Reviewed, dictated and finalized at location A. MATION CONSULTANT
--- NOTE | ~2023-06-09 | CT_ITS ---
EXAMINATION: CT lumbar spine wo con DATE: 06/09/2023 07:29 INDICATION: Back pain radiating down right leg. No acute injury. TECHNIQUE: Computed tomography (CT) of the lumbar spine was performed without intravenous contrast. T he mA was adjusted according to patient size. Iterative reconstruction technique was employed. Exam d ose: 822.39 mGy-cm total exam DLP. COMPARISON: None FINDINGS: There is 18 degrees levoscoliosis measured from L1 to L4. There is severe degenerative disc disease including virtual obliteration of disc space, spurring, ebu rnation and vacuum phenomenon and approximately 3 mm retrolisthesis at L1-2. There is moderate loss of interspace height, vacuum phenomenon, mild spurring and prominent posterior disc bulging at L2-3. There is severe loss of interspace height, vacuum phenomenon, degenerative spurring and prominent pos terior disc bulging at L3-4. There is mild loss of disc space height, vacuum phenomenon and prominent posterior disc bulging at L4 -5. There is moderate loss of disc space height, vacuum phenomenon and posterior disc bulging at L5-S1. There is severe degenerative change at the apophyseal joints with associated minimal grade 1 anteroli sthesis at L5-S1. No fracture or bone destruction is detected. There is degenerative change at the sacroiliac joints. Mild sigmoid diverticulosis is incidentally noted. There is prominent abdominal aortic and iliac mikael rial calcification. IMPRESSION: Levoscoliosis and severe degenerative change of the lumbar spine Reviewed, dictated and finalized at Location A. Reviewed, dictated and finalized at location A. INTERPRETER
--- NOTE | ~2023-06-09 | XR_ITS ---
XR hip RT 2V w AP pelvis DATE: 06/09/2023 07:42 INDICATION: Right hip and knee pain for 6 days TECHNIQUE: AP pelvis. AP and lateral views right hip COMPARISON: None FINDINGS: No pelvic fracture or bone destruction. The pubic symphysis and sacroiliac joints are intac t. Hip joint spaces are symmetric and relatively preserved. There is minimal spurring of the right femor al head consistent with mild right hip osteoarthritis. Suggestion of left hip mild/moderate osteoarth ritis as well. No right hip fracture or dislocation, avascular necrosis or bone destruction is detected. Levoscoliosis and multilevel degenerative disc disease of the lumbar spine. Prominent abdominal aortic and bilateral common iliac artery calcification. IMPRESSION: Bilateral hip osteoarthritis Levoscoliosis and multilevel degenerative disc disease of the lumbar spine Reviewed, dictated and finalized at location A. STANCE BRAZER
--- NOTE | ~2023-06-09 | XR_ITS ---
XR knee RT 3V DATE: 06/09/2023 07:41 INDICATION: Right hip and knee pain for 6 days. No injury. TECHNIQUE: 3 views COMPARISON: None FINDINGS: Status post right total knee arthroplasty with patellar resurfacing. There is osteopenia. No fracture or dislocation, periosteal reaction or bone destruction is detected. IMPRESSION: Status post right total knee arthroplasty Reviewed, dictated and finalized at location A. RELEASE WORKER
--- NOTE | 2023-06-09 07:14 | ED.GENADULT ---
HPI - General Adult General Chief complaint: Back Pain/Injury Stated complaint: R leg pain Time Seen by Provider: 06/09/23 07:03 Source: patient Mode of arrival: EMS Limitations: no limitations History of Present Illness HPI narrative: Patient is 87 years old white female came to the emergency room with pain at the middle of her right thigh started few days ago she denies any trauma, fever, chills, nausea, vomiting. Patient report having history of sat here, was seen by urgent care few days ago and had a prescription of prednisone without any improvement. She denies any tingling, numbness, focal weakness. Patient reported most of her family have cold symptoms, and lately been wheezing because she a history of COPD. MD complaint: 87 years old white female came to the emergency room by ambulance from Related Data Home Medications Medication Instructions Recorded Confirmed gabapentin 300 mg capsule 600 mg PO DAILY 04/02/19 09/09/20 gabapentin 300 mg capsule 900 mg PO HS 04/02/19 09/09/20 levothyroxine 100 mcg tablet 100 mcg PO DAILY 04/02/19 09/09/20 tiotropium bromide 18 mcg capsule 18 mcg inhalation DAILY 04/02/19 09/09/20 with inhalation device (Spiriva with HandiHaler) carvedilol 3.125 mg tablet 3.125 mg PO BID 07/06/19 09/09/20 Allergies Allergy/AdvReac Type Severity Reaction Status Date / Time Iodinated Contrast Media Allergy Severe severe Verified 06/09/23 06:22 itching Penicillins Allergy Mild Rash Verified 06/09/23 06:22 Review of Systems Review of Systems: All systems reviewed & are unremarkable except as noted in HPI and below PMFSH Past Medical History Medical History (Updated 06/09/23 @ 09:47 by Dallas Peralta MD) Anxiety COPD (chronic obstructive pulmonary disease) Diabetes mellitus DVT (deep venous thrombosis) Emphysema of lung GERD (gastroesophageal reflux disease) Gout HLD (hyperlipidemia) Hypertension Hypothyroidism NSTEMI (non-ST elevated myocardial infarction) Peripheral neuropathy Pneumonia Rheumatoid arthritis Skin cancer Tobacco abuse Ulcer Surgical History Surgical History H/O heart artery stent LAD drug-eluting stent H/O: hysterectomy History of appendectomy History of cholecystectomy History of total bilateral knee replacement Family History Family History Other Renal cancer CAD (coronary artery disease) Father Acute myocardial infarction Father Bladder cancer CAD (coronary artery disease) Mother CAD (coronary artery disease) Acute myocardial infarction Social History Social History Smoking packs per day: 1 Smoking cigarettes per day: 20.0 Years smoked: 50 Smoking pack-years: 50.00 Smoking status: Former smoker Tobacco type: cigarettes Second hand tobacco smoke exposure: Yes Smoking end date: 03/27/19 Additional smoking assessment comments: smoked off and on those 50 years Alcohol intake: never Substance use: never Gender identity (if verbalized by the patient): Female Spiritual care concerns: No Agree to blood products: Yes Exam Narrative: General appearance: Well-developed, well-nourished, audible wheezing Skin: Normal color Head: Normocephalic, nontraumatic Eyes: Clear conjunctiva ENT: Oropharynx normal, ears normal, nose normal Neck: Supple, nontender Chest and respiratory: diffuse wheezing bilaterally Heart: Regular rate/rhythm Abdomen: Soft, nontender, no organomegaly, quiet bowel sounds Vascular: Normal peripheral pulses, normal capillary refill. Musculoskeletal: mild diffuse tenderness medial side of the middle of the right thigh, no bruises, no swelling, no rash no deformity. 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 Negative right straight leg test
[2023-06-09] MEDS: ONDANSETRON HCL ODT 4 MG TABLET PO (07:40)
[2023-06-09] MEDS: predniSONE 20 MG TABLET 60 MG PO (07:41)
[2023-06-09] MEDS: MORPHINE SULFATE INJ (*CRX) 10 MG/ML AMP 4 MG IM (07:42)
[2023-06-09] MEDS: IPRATROPIUM BR 0.02% INH SOLN 0.5 MG/2.5 ML VIAL INHALATION (07:43)
[2023-06-09] MEDS: ALBUTEROL SULFATE NEB 2.5 MG/3 ML INH INHALATION (07:43)
[2023-06-09 08:01] LABS: Influenza A QL RT-PCR Negative (Negative); Influenza B QL RT-PCR Negative (Negative); RSV RNA, RT-PCR Negative (Negative); SARS-CoV-2 RNA PCR Positive (Negative)
[2023-06-09 09:14] LABS: Basophils Percent Auto 0.3 % (0.2-1.2); Eosinophils Absolute Auto 0.1 K/mm3 (0-0.3); Eosinophils Percent Auto 0.7 % (0-4.4); Hematocrit 40.2 % (37.0-47.0); Hemoglobin 12.3 g/dL (12.0-15.0); Immature Granulocyte Absolute 0.05 K/mm3 (0.00-0.031); Immature Granulocyte Percent A 0.5 % (0-0.5); Lymphocytes Absolute Auto 2.12 K/mm3 (0.9-3.2); Lymphocytes Percent Auto 21.2 % (18.3-44.2); Mean Corpuscular HGB Conc 30.6 g/dl (32-36); Mean Corpuscular Hemoglobin 28.3 pg (26-34); Mean Corpuscular Volume 92.4 fl (80-100); Mean Platelet Volume 11.2 fl (7.4-10.4); Monocytes Absolute Auto 0.5 K/mm3 (0.1-0.6); Monocytes Percent Auto 5.4 % (2.6-8.5); Neutrophils Absolute Auto 7.2 K/mm3 (1.3-6.7); Neutrophils Percent Auto 71.9 % (45.5-73.1); Platelet Count Result 198 k/mm3 (150-375); Red Blood Count 4.35 M/mm3 (4.2-5.4); Red Cell Distribution Width 14.6 % (11.5-14.5)
[2023-06-09 09:24] LABS: Alanine Aminotransferase 53 U/L (6-35); Albumin Level 3.9 g/dL (3.5-5.1); Alkaline Phosphatase 117 U/L (38-126); Anion Gap 8 mmol/L (8-16); Aspartate Amino Transferase 113 U/L (14-36); Bilirubin,Total 0.7 mg/dL (0.2-1.3); Blood Urea Nitrogen 20 mg/dL (7-17); Calcium 9.3 mg/dL (8.4-10.2); Carbon Dioxide 28 mmol/L (22-30); Chloride 99 mmol/L (98-107); Estimated CRCL calculation 42 ml/min; Estimated Glomerular Filt Rate > 60; Glucose 194 mg/dL (65-110); Potassium 4.6 mmol/L (3.4-5.0); Sodium 135 mmol/L (137-145)
[2023-06-09 09:35] LABS: NT Pro B Type Natriuretic Pept 1130 pg/mL (19.9-100); Troponin I < 0.012 ng/mL (0.000-0.034)
== END 2023-06-09 10:05 | disposition home or self-care (01) ==
PROVIDERS: Emergency Provider Emergency Medicine; PCP Family Medicine
DX: U07.1 COVID-19 (principal); M79.651 Pain in right thigh; J43.9 Emphysema, unspecified; I10 Essential (primary) hypertension; M10.9 Gout, unspecified; M06.9 Rheumatoid arthritis, unspecified; I25.2 Old myocardial infarction; E03.9 Hypothyroidism, unspecified; E11.42 Type 2 diabetes mellitus with diabetic polyneuropathy; E78.5 Hyperlipidemia, unspecified; K21.9 Gastro-esophageal reflux disease without esophagitis; Z86.718 Personal history of other venous thrombosis and embolism; Z95.5 Presence of coronary angioplasty implant and graft; Z79.51 Long term (current) use of inhaled steroids; Z87.891 Personal history of nicotine dependence
CPT/HCPCS: 36415; 71045; 72131; 73502; 73562; 80053; 83880; 84484; 85025; 87637; 94640; 96372; 99284; A9270; J2270; J7512

== ENCOUNTER 2023-06-16 09:40 | Emergency (ER) | payer MEDICARE, SELFPAY ==
--- NOTE | ~2023-06-16 | CT_ITS ---
EXAMINATION: CT knee RT wo con DATE: 06/16/2023 10:41 INDICATION: Severe right knee pain TECHNIQUE: Computed tomography (CT) of the right knee was performed without intravenous contrast. The dose-length product (DLP) was 554.21 mGy-cm. Automated exposure control and iterative reconstruction technique were employed. COMPARISON: Knee radiographs dated 06/09/2023 FINDINGS: There are changes of knee arthroplasty. Alignment is normal. No hardware failure is identif ied. There is no joint effusion. No fracture is identified. IMPRESSION: 1. Changes of right knee arthroplasty without acute osseous abnormality identified. Reviewed, dictated and finalized at location F. [facility] IMPRESSION: 1. Changes of right knee arthroplasty without acute osseous abnormality identif ied.
--- NOTE | ~2023-06-16 | US_ITS ---
Duplex Sonography of the right extremity: Indication: Pain Findings: Sagittal and transverse B-mode images as well as color-flow imaging were performed on the r ight femoral and popliteal veins. B-mode examination was done without and with compression in the tr ansverse plane. There is good visualization of the common femoral, proximal profunda femoral, superf icial femoral, greater saphenous, and popliteal veins. Normal flow was seen on color-flow imaging. N ormal compressibility was demonstrated. Visualized calf veins are also patent. Impression: No evidence of deep vein thrombosis involving the right lower extremity. Reviewed, dictated and finalized at location M. C[facility] ATTENDANT Impression: No evidence of deep vein thrombosis involving the right lower extremity.
--- NOTE | ~2023-06-16 | CT_ITS ---
EXAMINATION: CT hip RT wo con DATE: 06/16/2023 10:41 INDICATION: Severe right hip pain TECHNIQUE: Computed tomography (CT) of the right hip was performed without intravenous contrast. The dose-length product (DLP) was 470.39 mGy-cm. Automated exposure control and iterative reconstruction technique were employed. COMPARISON: 05/07/2019 FINDINGS: Bone alignment is normal. There is no fracture. There is mild osteoarthritis of the hip. Th ere is no joint effusion. The soft tissues are unremarkable. IMPRESSION: 1. No CT correlate for the patient's symptoms. Reviewed, dictated and finalized at location F. [facility]
[2023-06-16 09:39] VITALS: BP 151/99; PULSE 98; RESP 17; TEMP 36.4; O2SAT 97
--- NOTE | 2023-06-16 09:56 | ED.LOWEXIN ---
HPI - Extremity Injury (Lower) General Chief Complaint: Extremity Injury, Lower <Kevin Espitia APRN - Last Filed: 06/16/23 15:24> Stated Complaint: right leg pain <Kevin Espitia APRN - Last Filed: 06/16/23 15:24> Time Seen by Provider: 06/16/23 09:45 <Kevin Espitia APRN - Last Filed: 06/16/23 15:24> Source: patient <Kevin Espitia APRN - Last Filed: 06/16/23 15:24> Mode of arrival: ambulatory <Kevin Espitia APRN - Last Filed: 06/16/23 15:24> Limitations: no limitations <Kevin Esptiia APRN - Last Filed: 06/16/23 15:24> History of Present Illness HPI Narrative: Mamie is an 87-year-old female patient presenting to the ER today with complaints of right groin/hip/knee pain. She was seen in the ER 1 week ago and was diagnosed with COVID, right leg pain, and COPD exacerbation. She was given prescription for tramadol, prednisone, and meloxicam at that time and was told to stop taking the naproxen. She reports that she finished these medications and she is still having a lot of pain in the hip and knee. Was brought back in to the ER today by EMS. Patient reports that she has COVID in the muscle. <Kevin Espitia APRN - Last Filed: 06/16/23 15:24> Related Data Home Medications: Home Medications Medication Instructions Recorded Confirmed gabapentin 300 mg capsule 600 mg PO DAILY 04/02/19 09/09/20 gabapentin 300 mg capsule 900 mg PO HS 04/02/19 09/09/20 levothyroxine 100 mcg tablet 100 mcg PO DAILY 04/02/19 09/09/20 tiotropium bromide 18 mcg capsule 18 mcg inhalation DAILY 04/02/19 09/09/20 with inhalation device (Spiriva with HandiHaler) carvedilol 3.125 mg tablet 3.125 mg PO BID 07/06/19 09/09/20 <Kevin Espitia APRN - Last Filed: 06/16/23 15:24> Allergies/Adverse Reactions: Allergies Allergy/AdvReac Type Severity Reaction Status Date / Time Iodinated Contrast Media Allergy Severe severe Verified 06/16/23 09:48 itching Penicillins Allergy Mild Rash Verified 06/16/23 09:48 <Kevin Espitia APRN - Last Filed: 06/16/23 15:24> Review of Systems Review of Systems: Pertinent positives per HPI. Patient denies any fever, chills, rash, headache, visual changes, dizziness, cough, runny nose, sore throat, shortness of breath, chest pain, palpitations, nausea, vomiting, diarrhea, constipation, abdominal pain, or any urinary issues. <Kevin Espitia APRN - Last Filed: 06/16/23 15:24> [facility] Past Medical History Medical History: Medical History (Updated 06/16/23 @ 15:20 by Kevin Espitia APRN) Anxiety COPD (chronic obstructive pulmonary disease) Diabetes mellitus DVT (deep venous thrombosis) Emphysema of lung GERD (gastroesophageal reflux disease) Gout HLD (hyperlipidemia) Hypertension Hypothyroidism NSTEMI (non-ST elevated myocardial infarction) Peripheral neuropathy Pneumonia Rheumatoid arthritis Skin cancer Tobacco abuse Ulcer <Kevin Espitia APRN - Last Filed: 06/16/23 15:24> Surgical History Surgical History: Surgical History H/O heart artery stent LAD drug-eluting stent H/O: hysterectomy History of appendectomy History of cholecystectomy History of total bilateral knee replacement <Kevin Espitia APRN - Last Filed: 06/16/23 15:24> Family History Family History: Family History Other Renal cancer CAD (coronary artery disease) Father Acute myocardial infarction Father Bladder cancer CAD (coronary artery disease) Mother CAD (coronary artery disease) Acute myocardial infarction <Kevin Espitia APRN - Last Filed: 06/16/23 15:24> Social History Social History: Social History Smoking packs per day: 1 Smoking cigarettes per day: 20.0 Years smoked: 50 Smokin
[2023-06-16] MEDS: ONDANSETRON INJ 4 MG/2 ML VIAL IV PUSH ×2 (10:24→12:31)
[2023-06-16] MEDS: MORPHINE SULFATE (*CRX) 2 MG/ML INJ IV PUSH ×2 (10:25→12:31)
[2023-06-16 10:34] LABS: Basophils Absolute Auto 0.1 K/mm3 (0.0-0.1); Basophils Percent Auto 0.4 % (0.2-1.2); Eosinophils Absolute Auto 0.4 K/mm3 (0-0.3); Eosinophils Percent Auto 2.3 % (0-4.4); Hematocrit 41.2 % (37.0-47.0); Hemoglobin 13.1 g/dL (12.0-15.0); Immature Granulocyte Percent A 0.6 % (0-0.5); Lymphocytes Absolute Auto 4.93 K/mm3 (0.9-3.2); Lymphocytes Percent Auto 28.7 % (18.3-44.2); Mean Corpuscular HGB Conc 31.8 g/dl (32-36); Mean Corpuscular Volume 91.4 fl (80-100); Mean Platelet Volume 10.5 fl (7.4-10.4); Monocytes Absolute Auto 0.8 K/mm3 (0.1-0.6); Monocytes Percent Auto 4.7 % (2.6-8.5); Neutrophils Absolute Auto 10.9 K/mm3 (1.3-6.7); Neutrophils Percent Auto 63.3 % (45.5-73.1); Platelet Count Result 248 k/mm3 (150-375); Red Blood Count 4.51 M/mm3 (4.2-5.4); Red Cell Distribution Width 14.6 % (11.5-14.5); White Blood Count 17.2 K/mm3 (4.5-10.0)
[2023-06-16 10:51] LABS: Alanine Aminotransferase 33 U/L (6-35); Albumin Level 3.5 g/dL (3.5-5.1); Alkaline Phosphatase 91 U/L (38-126); Anion Gap 7 mmol/L (8-16); Aspartate Amino Transferase 24 U/L (14-36); Bilirubin,Total 0.7 mg/dL (0.2-1.3); Blood Urea Nitrogen 15 mg/dL (7-17); Calcium 8.9 mg/dL (8.4-10.2); Carbon Dioxide 27 mmol/L (22-30); Chloride 99 mmol/L (98-107); Estimated CRCL calculation 38 ml/min; Estimated Glomerular Filt Rate 59; Glucose 236 mg/dL (65-110); Potassium 4.7 mmol/L (3.4-5.0); Sodium 133 mmol/L (137-145)
[2023-06-16 12:32] VITALS: BP 101/59; PULSE 64; RESP 16; O2SAT 94
[2023-06-16 12:41] LABS: Creatine Kinase 25 U/L (30-135)
[2023-06-16 15:22] VITALS: BP 123/69; PULSE 82; RESP 16; TEMP 36.3; O2SAT 99
== END 2023-06-16 15:24 | disposition home or self-care (01) ==
PROVIDERS: Emergency Provider Nurse Practitioner Family; PCP Family Medicine
DX: M25.551 Pain in right hip (principal); M25.561 Pain in right knee; M16.11 Unilateral primary osteoarthritis, right hip; I10 Essential (primary) hypertension; I25.2 Old myocardial infarction; J43.9 Emphysema, unspecified; E11.9 Type 2 diabetes mellitus without complications; E78.5 Hyperlipidemia, unspecified; E03.9 Hypothyroidism, unspecified; G62.9 Polyneuropathy, unspecified; K21.9 Gastro-esophageal reflux disease without esophagitis; M10.9 Gout, unspecified; M06.9 Rheumatoid arthritis, unspecified; Z96.653 Presence of artificial knee joint, bilateral; Z95.5 Presence of coronary angioplasty implant and graft; Z86.718 Personal history of other venous thrombosis and embolism; Z86.16 Personal history of COVID-19; Z85.828 Personal history of other malignant neoplasm of skin; Z87.891 Personal history of nicotine dependence; Z90.710 Acquired absence of both cervix and uterus; Z90.49 Acquired absence of other specified parts of digestive tract; Z79.82 Long term (current) use of aspirin
CPT/HCPCS: 36415; 73700; 80053; 82550; 85025; 93971; 96374; 96375; 96376; 99284; J2270; J2405

== ENCOUNTER 2023-06-26 14:35 | Emergency (ER) | payer MEDICARE, SELFPAY ==
[2023-06-26 14:42] VITALS: BP 129/101; PULSE 97; RESP 18; TEMP 36.4; O2SAT 98
--- NOTE | 2023-06-26 15:54 | PC.NURSE ---
Pt and family states that they called [facility] and were told that they could get her right in so they are going to take pt there. IV removed and pt taken to car by wheelchair
== END 2023-06-26 15:54 | disposition left against medical advice (07) ==
LOC: ANHED 16:03
PROVIDERS: PCP Family Medicine
DX: R10.30 Lower abdominal pain, unspecified (principal)
CPT/HCPCS: 99199

== ENCOUNTER 2023-08-27 07:49 | Emergency (ER) | payer MEDICARE, SELFPAY ==
[2023-08-27 07:51] VITALS: BP 130/111; PULSE 120; RESP 18; TEMP 36.3; O2SAT 100
[2023-08-27] MEDS: MORPHINE SULFATE (*CRX) 4 MG/ML INJ IM (08:34)
[2023-08-27 08:55] LABS: Basophils Percent Auto 0.2 % (0.2-1.2); Eosinophils Percent Auto 0.2 % (0-4.4); Hematocrit 39.8 % (37.0-47.0); Hemoglobin 12.8 g/dL (12.0-15.0); Immature Granulocyte Absolute 0.12 K/mm3 (0.00-0.031); Immature Granulocyte Percent A 0.9 % (0-0.5); Lymphocytes Absolute Auto 2.03 K/mm3 (0.9-3.2); Lymphocytes Percent Auto 15.5 % (18.3-44.2); Mean Corpuscular HGB Conc 32.2 g/dl (32-36); Mean Corpuscular Hemoglobin 31.5 pg (26-34); Mean Platelet Volume 10.4 fl (7.4-10.4); Monocytes Absolute Auto 0.8 K/mm3 (0.1-0.6); Monocytes Percent Auto 5.9 % (2.6-8.5); Neutrophils Absolute Auto 10.1 K/mm3 (1.3-6.7); Neutrophils Percent Auto 77.3 % (45.5-73.1); Platelet Count Result 200 k/mm3 (150-375); Red Blood Count 4.06 M/mm3 (4.2-5.4); Red Cell Distribution Width 17.8 % (11.5-14.5); White Blood Count 13.1 K/mm3 (4.5-10.0)
[2023-08-27 09:06] LABS: Alanine Aminotransferase 31 U/L (6-35); Albumin Level 3.7 g/dL (3.5-5.1); Alkaline Phosphatase 85 U/L (38-126); Anion Gap 6 mmol/L (8-16); Aspartate Amino Transferase 23 U/L (14-36); Bilirubin,Total 1.1 mg/dL (0.2-1.3); Blood Urea Nitrogen 14 mg/dL (7-17); Calcium 8.4 mg/dL (8.4-10.2); Carbon Dioxide 26 mmol/L (22-30); Chloride 102 mmol/L (98-107); Estimated CRCL calculation 50 ml/min; Estimated Glomerular Filt Rate > 60; Glucose 205 mg/dL (65-110); Potassium 3.5 mmol/L (3.4-5.0); Sodium 134 mmol/L (137-145)
[2023-08-27 09:13] VITALS: BP 143/71; PULSE 105; RESP 18; O2SAT 100
[2023-08-27 09:40] LABS: Appearance Urine Clear (Clear); Bacteria Urine 4+ /hpf; Color Urine Yellow (Yellow); Non Pathogenic Casts 0-2; Squamous Epithelial Cell Urine None Seen /hpf (Few); WBC Urine 0-5 /hpf (0-3)
[2023-08-27 09:43] LABS: Add Urine Microscopic? YES; Bilirubin Urine 1+ (Negative); Blood Urine Negative (Negative); Glucose Urine UA Negative (Negative); Ketones Urine 1+ mg/dL (Negative); Leukocyte Esterase Ur Negative LEU/UL (Negative); Nitrate Urine Negative (Negative); Protein Urine 1+ mg/dL (Negative); Specific Grav Ur 1.025 (1.001-1.035)
--- NOTE | 2023-08-27 10:10 | ED.GENADULT ---
HPI - General Adult General Chief complaint: Unspecified Stated complaint: R GROIN PAIN Time Seen by Provider: 08/27/23 07:59 Source: patient Mode of arrival: ambulatory Limitations: no limitations History of Present Illness HPI narrative: The 88-year-old with history of hypertension, diabetes, neuropathy status post hemiarthroplasty here with complaints of right groin pain which has been ongoing for several weeks. Patient was recently discharged from [facility] 4 days ago. Patient states that the pain has been pretty steady since then. She is currently on gabapentin and oxycodone. Patient states that she took 1 tablet yesterday and has not taken it takes at nighttime. She denies any recent fall. Family supports that they checked her urine recently which showed glucose otherwise no infection. Patient denies any fever or chills no history of nausea or vomiting. Onset (ago): unknown Radiation: non-radiation Severity: moderate Quality: aching Pain Consistency: constant Relieving factors: none Exacerbating factors: movement Associated symptoms: denies other symptoms Treatments prior to arrival: none Related Data Home Medications Medication Instructions Recorded Confirmed gabapentin 300 mg capsule 600 mg PO DAILY 04/02/19 08/14/23 gabapentin 300 mg capsule 900 mg PO HS 04/02/19 08/14/23 levothyroxine 100 mcg tablet 100 mcg PO DAILY 04/02/19 08/14/23 tiotropium bromide 18 mcg capsule 18 mcg inhalation DAILY 04/02/19 08/14/23 with inhalation device (Spiriva with HandiHaler) carvedilol 3.125 mg tablet 3.125 mg PO BID 07/06/19 08/14/23 Allergies Allergy/AdvReac Type Severity Reaction Status Date / Time Iodinated Contrast Media Allergy Severe severe Verified 06/16/23 09:48 itching Penicillins Allergy Mild Rash Verified 06/16/23 09:48 Review of Systems Review of Systems: All systems reviewed & are unremarkable except as noted in HPI and below Constitutional: Constitutional: Reports no additional constitutional complaints Eyes: Eyes: Reports no additional eye complaints ENT: Reports system reviewed and no additional complaints, except as documented Cardiovascular: Cardiovascular: Reports no additional cardiovascular complaints Gastrointestinal: Gastrointestinal: Reports no additional gastrointestinal complaints Genitourinary: Genitourinary: Reports no additional female genitourinary complaints Musculoskeletal: Musculoskeletal: Reports as per HPI Neurologic: Reports system reviewed and no additional complaints, except as documented [facility] Past Medical History Medical History (Updated 08/27/23 @ 10:15 by Joe Lopez MD) Anxiety COPD (chronic obstructive pulmonary disease) Diabetes mellitus DVT (deep venous thrombosis) Emphysema of lung GERD (gastroesophageal reflux disease) Gout HLD (hyperlipidemia) Hypertension Hypothyroidism NSTEMI (non-ST elevated myocardial infarction) Peripheral neuropathy Pneumonia Rheumatoid arthritis Skin cancer Tobacco abuse Ulcer Surgical History Surgical History H/O heart artery stent LAD drug-eluting stent H/O: hysterectomy History of appendectomy History of cholecystectomy History of total bilateral knee replacement Family History Family History Other Renal cancer CAD (coronary artery disease) Father Acute myocardial infarction Father Bladder cancer CAD (coronary artery disease) Mother CAD (coronary artery disease) Acute myocardial infarction Social History Social History Smoking packs per day: 1 Smoking cigarettes per day: 20.0 Years smoked: 50 Smoking pack-years: 50.00 Smoking status: Former smoker Tobacco type: cigarettes Second hand tobacco smoke exposure: Yes Smoking end date: 03/27/19 Additional smoking assessment comments: smoked off and on those 50 y
--- NOTE | 2023-08-27 13:58 | PCCCNOTE ---
CC called to come talk with pt and her family regarding placement. Pt is alert and oriented, says she is not going into any facility at this time. She lives alone and family is concerned about her being there. Pt was given brochures for home health assistance. She said her granddaughter, neighbor, and her son and DIL would be there to help her if she needed any thing.
== END 2023-08-27 10:49 | disposition home or self-care (01) ==
PROVIDERS: Emergency Provider Family Medicine; PCP Family Medicine
DX: R10.31 Right lower quadrant pain (principal); F41.9 Anxiety disorder, unspecified; J44.9 Chronic obstructive pulmonary disease, unspecified; E11.9 Type 2 diabetes mellitus without complications; Z86.718 Personal history of other venous thrombosis and embolism; K21.9 Gastro-esophageal reflux disease without esophagitis; I10 Essential (primary) hypertension; E03.9 Hypothyroidism, unspecified
CPT/HCPCS: 36415; 80053; 81001; 85025; 96372; 99283; J2270

== ENCOUNTER 2023-11-08 11:58 | Emergency (ER) | payer MEDICARE, SELFPAY ==
--- NOTE | ~2023-11-08 | CT_ITS ---
EXAMINATION: CT chest abdomen pelvis wo con DATE: 11/08/2023 13:18 INDICATION: Chest and abdominal injury. Left rib pain. TECHNIQUE: Computed tomography (CT) of the chest, abdomen, and pelvis was performed without intraveno us contrast. Automated exposure control and iterative reconstruction technique were employed. The dos e-length product was 806.34 mGy-cm. COMPARISON: Chest CT 04/21/2020, CT abdomen and pelvis 05/07/2019 FINDINGS: CHEST CT: The lung zones are mild atelectasis. Calcified right lung nodules and calcified right hilar mediastin al lymph nodes are consistent with old granulomatous disease. There is a 2 mm nodule in right lung, l ikely benign. No pleural effusion. The heart size is normal. There are coronary artery calcifications . No pericardial effusion. There is ectasia of ascending aorta measuring 4.6 cm. There are fractures of left sixth-eighth ribs. There is a chronic compression fracture of T6 vertebral body. ABDOMEN/PELVIS CT: Calcifications in the liver and spleen are consistent with old granulomatous disease. There are wiggins es of cholecystectomy. The pancreas, adrenal glands, and kidneys are normal. There is no urolithiasis . There is diverticulosis of the colon without evidence of diverticulitis. There are no dilated loops of bowel. The appendix is not visualized. There are no pathologically enlarged lymph nodes. There is calcified atherosclerosis of the aorta and many of the other arteries. There is no free intraperiton eal fluid. There is severe lumbar spondylosis. IMPRESSION: 1. Fractures of left sixth-eighth ribs. 2. 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 Reviewed, dictated and finalized at location A.
--- NOTE | ~2023-11-08 | CT_ITS ---
EXAMINATION: CT brain wo con DATE: 11/08/2023 13:16 INDICATION: Head injury. TECHNIQUE: Computed tomography (CT) of the head was performed without intravenous contrast. The mA wa s adjusted according to patient size. Iterative reconstruction technique was employed. The dose-lengt h product was 605.33 mGy-cm. COMPARISON: None FINDINGS: There are scattered areas of low attenuation in the cerebral white matter. There is no intr acranial hemorrhage, acute infarction, or abnormal intracranial mass lesion. The ventricles are enoc l in size. There are likely changes of ocular lens replacement surgeries. The mastoid air cells are n ormal. The paranasal sinuses are clear. IMPRESSION: 1. Extensive nonspecific cerebral white matter disease, which likely represents chronic small vessel ischemic disease. Reviewed, dictated and finalized at location A.
--- NOTE | ~2023-11-08 | CT_ITS ---
EXAMINATION: CT facial & cervical spine wo DATE: 11/08/2023 13:16 INDICATION: Head injury. TECHNIQUE: Computed tomography (CT) of the maxillofacial region and cervical spine was performed with out intravenous contrast. Automated exposure control and iterative reconstruction technique were empl oyed. The dose-length product was 164.21 mGy-cm. COMPARISON: None FINDINGS: MAXILLOFACIAL CT: There are likely changes of ocular lens replacement surgeries. The paranasal sinuses are clear. The m astoid air cells are normal. There is rightward deviation of the nasal septum. No fracture. CERVICAL SPINE CT: There is 2 mm anterolisthesis of C6 on C7. Vertebral body heights are normal. There is mildly decreas ed disc height at C4-C5, severely decreased disc height at C5-C6, and mildly decreased disc height at C6-C7. The following disc levels are specifically discussed: C2-C3: There is no uncovertebral joint osteoarthritis. There is severe bilateral facet joint osteoart hritis. There is no neural foraminal stenosis. There is no central canal stenosis. C3-C4: There is mild bilateral uncovertebral joint osteoarthritis. There is severe bilateral facet vinny int osteoarthritis. There is mild bilateral neural foraminal stenosis. There is mild central canal st enosis. C4-C5: There is severe right and mild left uncovertebral joint osteoarthritis. There is mild right an d severe left facet joint osteoarthritis. There is mild bilateral neural foraminal stenosis. There is mild central canal stenosis. C5-C6: There is severe bilateral uncovertebral joint osteoarthritis. There is mild bilateral facet vinny int osteoarthritis. There is moderate bilateral neural foraminal stenosis. There is mild central funmilayo l stenosis. C6-C7: There is mild bilateral uncovertebral joint osteoarthritis. There is severe bilateral facet vinny int osteoarthritis. There is mild bilateral neural foraminal stenosis. There is mild central canal st enosis. C7-T1: There is no uncovertebral joint osteoarthritis. There is severe bilateral facet joint osteoart hritis. There is mild right neural foraminal stenosis. There is no central canal stenosis. IMPRESSION: 1. No fracture. 2. Severe cervical spondylosis. Reviewed, dictated and finalized at location A.
--- NOTE | ~2023-11-08 | XR_ITS ---
AP view of the pelvis Clinical history: Pain Findings: No acute fracture or dislocation is seen. Osseous alignment is anatomic. Moderate degenerat cami change of the left hip joint noted. Minimal degenerative change of the right hip joint noted. The re is degenerative spondylosis of lower lumbar spine. Soft tissues are unremarkable. Impression: No acute abnormality. Degenerative changes, as above. Reviewed, dictated and finalized at location . Impression: No acute abnormality. Degenerative changes, as above.
--- NOTE | ~2023-11-08 | XR_ITS ---
EXAMINATION: XR wrist LT min 3V DATE: 11/08/2023 13:25 INDICATION: Left wrist injury. TECHNIQUE: 4 views of left wrist were obtained. COMPARISON: None. FINDINGS: Bone alignment is normal. No fracture. There is severe osteoarthritis of triscaphe joint an d moderate osteoarthritis of first carpometacarpal joint. There is moderate osteoarthritis of second and third metacarpophalangeal joints. IMPRESSION: 1. Polyarticular osteoarthritis. Reviewed, dictated and finalized at location A.
[2023-11-08 12:01] VITALS: BP 122/99; PULSE 84; RESP 18; TEMP 36.6; O2SAT 97
--- NOTE | 2023-11-08 12:27 | ED.FALL ---
HPI - Fall General Chief Complaint: Fall Stated Complaint: fall Time Seen by Provider: 11/08/23 12:21 History of Present Illness HPI Narrative: Patient is an 88-year-old female with history of COPD, diabetes, DVT on aspirin only, hypertension, coronary artery disease here after a fall. Patient states that she was at her home bending over to pick something up and she fell face forward after losing her balance. She states she hit both her head and left ribs on the way down to the linoleum floor. She called EMS who helped get her off of the ground. Currently complaining of some left-sided rib pain as well as facial pain. She denies loss of consciousness. She notes she had a temporary bloody nose which has self resolved. She was wearing her glasses and dentures, neither which broke when she fell. She denies any prodromal chest pain or shortness of breath. She has chronic pain and some longstanding gait instability issues. Related Data Home Medications Medication Instructions Recorded Confirmed gabapentin 300 mg capsule 600 mg PO DAILY 04/02/19 08/14/23 gabapentin 300 mg capsule 900 mg PO HS 04/02/19 08/14/23 levothyroxine 100 mcg tablet 100 mcg PO DAILY 04/02/19 08/14/23 tiotropium bromide 18 mcg capsule 18 mcg inhalation DAILY 04/02/19 08/14/23 with inhalation device (Spiriva with HandiHaler) carvedilol 3.125 mg tablet 3.125 mg PO BID 07/06/19 08/14/23 Allergies Allergy/AdvReac Type Severity Reaction Status Date / Time Iodinated Contrast Media Allergy Severe severe Verified 11/08/23 12:19 itching Penicillins Allergy Mild Rash Verified 11/08/23 12:19 Review of Systems Review of Systems: All systems reviewed & are unremarkable except as noted in HPI and below PMFSH Past Medical History Medical History (Updated 11/08/23 @ 13:52 by Sabrina Taylor MD) Anxiety COPD (chronic obstructive pulmonary disease) Diabetes mellitus DVT (deep venous thrombosis) Emphysema of lung GERD (gastroesophageal reflux disease) Gout HLD (hyperlipidemia) Hypertension Hypothyroidism NSTEMI (non-ST elevated myocardial infarction) Peripheral neuropathy Pneumonia Rheumatoid arthritis Skin cancer Tobacco abuse Ulcer Surgical History Surgical History H/O heart artery stent LAD drug-eluting stent H/O: hysterectomy History of appendectomy History of cholecystectomy History of total bilateral knee replacement Family History Family History Other Renal cancer CAD (coronary artery disease) Father Acute myocardial infarction Father Bladder cancer CAD (coronary artery disease) Mother CAD (coronary artery disease) Acute myocardial infarction Social History Social History Smoking packs per day: 1 Smoking cigarettes per day: 20.0 Years smoked: 50 Smoking pack-years: 50.00 Smoking status: Former smoker Tobacco type: cigarettes Second hand tobacco smoke exposure: Yes Smoking end date: 03/27/19 Additional smoking assessment comments: smoked off and on those 50 years Alcohol intake: never Substance use: never Gender identity (if verbalized by the patient): Female Spiritual care concerns: No Agree to blood products: Yes Exam Narrative: GENERAL: Well-appearing, well-nourished, and in no acute distress. HEAD: Normocephalic EYES: PERRLA and EOMI. ENT: Dried blood in right naris. No nasal septal hematoma present. Tenderness over the bridge of the nares with no obvious deformity. Overlying bruising present on bridge of nares. 1cm superficial linear laceration underlying the nose piece of her glasses. No active bleeding. She has bruising over the midline of her chin, minimal tenderness, no obvious deformity, no trismus, normal range of motion of bilateral TMJ NECK: Supple. No midline cervical spine tenderness. CHEST: Clear to auscult
--- NOTE | 2023-11-08 12:41 | ECG_ITS ---
[facility] [address] Test Date: 2023-11-08 Pat Name: Mamie Bekcham Department: Room: Gender: F Audit Lead: : 1935 Requested By: Sabrina Taylor Order Number: [id number] Yannick MD: Carmelo Wolfe M.D. Measurements Intervals [place] Rate: 68 P: 3 CT: 121 QRS: 7 QRSD: 78 T: 44 QT: 370 QTc: 395 Interpretive Statements SINUS RHYTHM NORMAL ELECTROCARDIOGRAM No previous ECG available for comparison Electronically Signed On 11-09-2023 07:54:11 CDT by Carmelo Wolfe M.D.
--- NOTE | 2023-11-08 13:51 | PC.NURSE ---
Pt refusing ordered meds at this time. When offered Tylenol, pt stated, Honey, I take oxycodone, I don't want that. When offered Tdap booster, pt stated, I don't want that money alex' alize.
[2023-11-08 13:54] LABS: Basophils Percent Auto 0.4 % (0.2-1.2); Eosinophils Absolute Auto 0.2 K/mm3 (0-0.3); Eosinophils Percent Auto 1.5 % (0-4.4); Hematocrit 37.1 % (37.0-47.0); Hemoglobin 11.5 g/dL (12.0-15.0); Immature Granulocyte Absolute 0.06 K/mm3 (0.00-0.031); Immature Granulocyte Percent A 0.6 % (0-0.5); Lymphocytes Absolute Auto 2.39 K/mm3 (0.9-3.2); Mean Corpuscular Hemoglobin 30.6 pg (26-34); Mean Corpuscular Volume 98.7 fl (80-100); Mean Platelet Volume 10.6 fl (7.4-10.4); Monocytes Absolute Auto 0.6 K/mm3 (0.1-0.6); Monocytes Percent Auto 5.3 % (2.6-8.5); Neutrophils Absolute Auto 7.2 K/mm3 (1.3-6.7); Neutrophils Percent Auto 69.2 % (45.5-73.1); Platelet Count Result 235 k/mm3 (150-375); Red Blood Count 3.76 M/mm3 (4.2-5.4); Red Cell Distribution Width 13.7 % (11.5-14.5); White Blood Count 10.4 K/mm3 (4.5-10.0)
[2023-11-08 14:11] LABS: Alanine Aminotransferase 10 U/L (6-35); Albumin Level 3.6 g/dL (3.5-5.1); Alkaline Phosphatase 72 U/L (38-126); Anion Gap 3 mmol/L (4-12); Aspartate Amino Transferase 17 U/L (14-36); Bilirubin,Total 0.6 mg/dL (0.2-1.3); Blood Urea Nitrogen 11 mg/dL (7-17); Calcium 9.4 mg/dL (8.4-10.2); Carbon Dioxide 26 mmol/L (22-30); Chloride 106 mmol/L (98-107); Estimated CRCL calculation 44 ml/min; Estimated Glomerular Filt Rate > 60; Glucose 101 mg/dL (65-110); Potassium 4.3 mmol/L (3.4-5.0); Sodium 135 mmol/L (137-145)
[2023-11-08 14:21] LABS: Troponin I 0.015 ng/mL (0.000-0.034)
[2023-11-08 15:13] LABS: Appearance Urine Cloudy (Clear); Bacteria Urine None Seen /hpf; Bilirubin Urine Negative (Negative); Blood Urine Negative (Negative); Color Urine Yellow (Yellow); Glucose Urine UA Negative (Negative); Ketones Urine Negative (Negative); Leukocyte Esterase Ur 1+ LEU/UL (Negative); Nitrate Urine Negative (Negative); Non Pathogenic Casts 0-2; Protein Urine Negative (Negative); RBC Urine 0-2 /hpf (0-2); Specific Grav Ur 1.014 (1.001-1.035); Squamous Epithelial Cell Urine Occasional /hpf (Few); Urobilinogen Urine 0.2 mg/dL (<2.0); pH Urine 5.5 (5.0-9.0)
[2023-11-08 15:22] LABS: Add Urine Microscopic? YES
[2023-11-08 15:27] VITALS: BP 124/86; PULSE 78; RESP 16; O2SAT 97
== END 2023-11-08 15:28 | disposition home or self-care (01) ==
PROVIDERS: Emergency Provider Student in an Organized Health Care Education/Training Program; PCP Family Medicine
DX: S22.42XA Multiple fractures of ribs, left side, initial encounter for closed fracture (principal); S00.83XA Contusion of other part of head, initial encounter; I10 Essential (primary) hypertension; I25.10 Atherosclerotic heart disease of native coronary artery without angina pectoris; I25.2 Old myocardial infarction; J44.9 Chronic obstructive pulmonary disease, unspecified; J43.9 Emphysema, unspecified; E11.42 Type 2 diabetes mellitus with diabetic polyneuropathy; E78.5 Hyperlipidemia, unspecified; E03.9 Hypothyroidism, unspecified; K21.9 Gastro-esophageal reflux disease without esophagitis; M06.9 Rheumatoid arthritis, unspecified; M10.9 Gout, unspecified; Z95.5 Presence of coronary angioplasty implant and graft; Z96.653 Presence of artificial knee joint, bilateral; Z87.01 Personal history of pneumonia (recurrent); Z85.828 Personal history of other malignant neoplasm of skin; Z86.718 Personal history of other venous thrombosis and embolism; Z87.891 Personal history of nicotine dependence; Z90.710 Acquired absence of both cervix and uterus; Z90.49 Acquired absence of other specified parts of digestive tract; Z79.82 Long term (current) use of aspirin; Z79.899 Other long term (current) drug therapy; R90.82 White matter disease, unspecified; M18.9 Osteoarthritis of first carpometacarpal joint, unspecified; M19.032 Primary osteoarthritis, left wrist; M47.812 Spondylosis without myelopathy or radiculopathy, cervical region; I77.819 Aortic ectasia, unspecified site; W18.39XA Other fall on same level, initial encounter
CPT/HCPCS: 36415; 70450; 70486; 71250; 72125; 72170; 73110; 74176; 80053; 81001; 84484; 85025; 87077; 87086; 87088; 87186; 93005; 99284

== ENCOUNTER 2023-12-06 07:59 | Outpatient (CLI) | payer MEDICARE, SELFPAY ==
--- NOTE | ~2023-12-06 | MR_ITS ---
MRI of the lumbar spine Clinical History: Radiculopathy Technique: Axial T2-weighted images, and sagittal T1-weighted, T2-weighted, and T2 fat-sat images wer e acquired. Findings: There is no fracture of the lumbar spine. There is 5 mm retrolisthesis of L1 over L2. There is left unilateral L5 pars interarticularis defect, with 5 mm anterolisthesis of L5 over S1. No susp icious bone marrow signal abnormality seen. At L1-L2, there is severe degenerative disc narrowing. There is mild diffuse disc bulge and moderate facet arthropathy, with right lateral recess stenosis. There is severe bilateral neural foraminal sócar rowing, right worse than left. No valdo central canal stenosis. At L2-L3, there is diffuse disc bulge and advanced facet arthropathy, resulting in moderate to severe spinal canal stenosis/thecal sac compression. There is superimposed disc extrusion in the right para central to right foraminal region extending inferiorly behind the L3 vertebral body. This probably im pinges the descending right-sided L3-L4 level nerve root. There is severe right neural foraminal narr owing, and moderate left neural foraminal narrowing. At L3-L4, there is advanced degenerative disc narrowing. There is diffuse disc bulge and advanced fac et arthropathy. There is minimal central canal stenosis. There is severe left neural foraminal compro mise, and moderate to severe right neural foraminal compromise, with disc extrusion extending towards the left neural foramen this level from the above level, as noted above. At L4-L5, there is left foraminal disc bulge with severe facet arthropathy. No central canal stenosis . There is severe left neural foraminal narrowing. Right neural foramen preserved. At L5-S1, there is diffuse disc bulge and severe facet arthropathy. There is severe left neural joseph inal compromise, and mild to moderate right neural foraminal narrowing. Paravertebral soft tissues are unremarkable. Impression: Severe degenerative spondylosis, as detailed above. In particular, there is a right paracentral disc extrusion at L2-L3 extending inferiorly, which probably impinges the descending right-sided L3-L4 lev el nerve root. There is multilevel additional significant neural foraminal narrowing, as detailed abo ve. 5 mm retrolisthesis of L1 over L2. Probable left unilateral L5 pars interarticularis defect, with 5 mm anterolisthesis of L5 over S1. Reviewed, dictated and finalized at location M. Impression: Severe degenerative spondylosis, as detailed above. In particular, there is a r ight paracentral disc extrusion at L2-L3 extending inferiorly, which probably i mpinges the descending right-sided L3-L4 level nerve root. There is multilevel additional significant neural foraminal narrowing, as detailed above. 5 mm retrolisthesis of L1 over L2. Probable left unilateral L5 pars interarticularis defect, with 5 mm anterolisth esis of L5 over S1.
== END 2023-12-06 08:00 ==
LOC: MICIMG 08:02
PROVIDERS: PCP Nurse Practitioner Family; Visit Provider Nurse Practitioner Family
DX: M47.26 Other spondylosis with radiculopathy, lumbar region (principal)
CPT/HCPCS: 72148

== ENCOUNTER 2023-12-30 07:36 | Emergency (ER) | payer MEDICARE, SELFPAY ==
--- NOTE | ~2023-12-30 | XR_ITS ---
XR knee RT 3V Ordering provider: Shawn Freeman MD History: . Right knee pain AFTER FALL 3 WKS AGO . Comparison: June 09, 2023 FINDINGS: BONES: No acute fracture or dislocation. JOINT SPACES: Total knee arthroplasty. SOFT TISSUES: Normal. IMPRESSION: No acute osseous abnormality right knee. Total knee arthroplasty. Reviewed, dictated and finalized at location A.
[2023-12-30 07:41] VITALS: BP 174/77; PULSE 108; RESP 20; TEMP 36.4; O2SAT 97
[2023-12-30 08:58] LABS: Appearance Urine Clear (Clear); Bacteria Urine Rare /hpf; Bilirubin Urine Negative (Negative); Blood Urine Negative (Negative); Color Urine Yellow (Yellow); Glucose Urine UA Negative (Negative); Ketones Urine Negative (Negative); Leukocyte Esterase Ur 2+ LEU/UL (Negative); Nitrate Urine Negative (Negative); Non Pathogenic Casts 0-2; Protein Urine Negative (Negative); RBC Urine 0-2 /hpf (0-2); Specific Grav Ur 1.022 (1.001-1.035); Squamous Epithelial Cell Urine Moderate /hpf (Few); pH Urine 5.5 (5.0-9.0)
[2023-12-30 09:00] VITALS: BP 141/58; PULSE 77; RESP 16; O2SAT 96
[2023-12-30 09:03] LABS: Add Urine Microscopic? YES
[2023-12-30 09:38] LABS: Influenza A QL RT-PCR Negative (Negative); Influenza B QL RT-PCR Negative (Negative); RSV RNA, RT-PCR Negative (Negative); SARS-CoV-2 RNA PCR Negative (Negative)
--- NOTE | 2023-12-30 09:51 | ED.GENADULT ---
HPI - General Adult General Chief complaint: Unspecified Stated complaint: shaking, knee pain Time Seen by Provider: 12/30/23 07:48 History of Present Illness HPI narrative: This is an 88-year-old female presenting with multiple complaints. Her 1st complaint is right knee pain. Her knee has been hurting for 4-5 days although she well documented history of chronic joint pain and is being treated in a pain clinic. She has taken oxycodone at home. She was told she could take additional oxycodone if needed but only likes to take 1 in the morning. Patient is also requesting a COVID test and a urinalysis as she is worried she might have COVID or another UTI. She is denying dysuria urgency or frequency. Patient denies fevers chills chest pain difficulty breathing abdominal pain, nausea vomiting diarrhea. Related Data Home Medications Medication Instructions Recorded Confirmed gabapentin 300 mg capsule 600 mg PO DAILY 04/02/19 08/14/23 gabapentin 300 mg capsule 900 mg PO HS 04/02/19 08/14/23 levothyroxine 100 mcg tablet 100 mcg PO DAILY 04/02/19 08/14/23 tiotropium bromide 18 mcg capsule 18 mcg inhalation DAILY 04/02/19 08/14/23 with inhalation device (Spiriva with HandiHaler) carvedilol 3.125 mg tablet 3.125 mg PO BID 07/06/19 08/14/23 Allergies Allergy/AdvReac Type Severity Reaction Status Date / Time Iodinated Contrast Media Allergy Severe severe Verified 12/30/23 07:46 itching Penicillins Allergy Mild Rash Verified 12/30/23 07:46 [facility] Past Medical History Medical History (Updated 12/30/23 @ 10:00 by Shawn Freeman MD) Anxiety COPD (chronic obstructive pulmonary disease) Diabetes mellitus DVT (deep venous thrombosis) Emphysema of lung GERD (gastroesophageal reflux disease) Gout HLD (hyperlipidemia) Hypertension Hypothyroidism NSTEMI (non-ST elevated myocardial infarction) Peripheral neuropathy Pneumonia Rheumatoid arthritis Skin cancer Tobacco abuse Ulcer Surgical History Surgical History H/O heart artery stent LAD drug-eluting stent H/O: hysterectomy History of appendectomy History of cholecystectomy History of total bilateral knee replacement Family History Family History Other Renal cancer CAD (coronary artery disease) Father Acute myocardial infarction Father Bladder cancer CAD (coronary artery disease) Mother CAD (coronary artery disease) Acute myocardial infarction Social History Social History Smoking packs per day: 1 Smoking cigarettes per day: 20.0 Years smoked: 50 Smoking pack-years: 50.00 Smoking status: Former smoker Tobacco type: cigarettes Second hand tobacco smoke exposure: Yes Smoking end date: 03/27/19 Additional smoking assessment comments: smoked off and on those 50 years Alcohol intake: never Substance use: never Gender identity (if verbalized by the patient): Female Spiritual care concerns: No Agree to blood products: Yes Exam Narrative: APPEARANCE: No apparent distress. Head: atraumatic. EYES: EOMI, NOSE: Atraumatic NECK: Trachea midline RESPIRATORY: No increased rate of breathing clear to auscultation CARDIOVASCULAR: RRR, no peripheral edema ABDOMINAL: Non-distended soft nontender MUSCULOSKELETAl: Focal exam of the right knee revealed a well-healed surgical scar. Patient has full range of motion with no significant discomfort. Neurovascularly intact. Strength intact NEURO: Alert. Moving 4/4 extremities SKIN:: Warm, dry. Normal color PSYCHIATRIC: Normal affect Course Vital Signs Vital signs: Vital Signs Temperature 97.6 F 12/30/23 07:41 Pulse Rate 108 H 12/30/23 07:41 Respiratory Rate 20 12/30/23 07:41 Blood Pressure 174/77 H 12/30/23 07:41 Pulse Oximetry 97 12/30/23 07:41 Oxygen Delivery Room Air 12/30/23 07:41
[2023-12-30] MEDS: CEPHALEXIN 500 MG CAPSULE PO (10:08)
[2023-12-30 10:11] VITALS: BP 130/58; PULSE 78; RESP 22; O2SAT 95
== END 2023-12-30 10:14 | disposition home or self-care (01) ==
PROVIDERS: Emergency Provider Emergency Medicine; PCP Nurse Practitioner Family
DX: N39.0 Urinary tract infection, site not specified (principal); M25.561 Pain in right knee; Z20.822 Contact with and (suspected) exposure to COVID-19; F41.9 Anxiety disorder, unspecified; J44.9 Chronic obstructive pulmonary disease, unspecified; E11.9 Type 2 diabetes mellitus without complications; Z86.718 Personal history of other venous thrombosis and embolism; K21.9 Gastro-esophageal reflux disease without esophagitis; E78.5 Hyperlipidemia, unspecified; I10 Essential (primary) hypertension; E03.9 Hypothyroidism, unspecified; I25.2 Old myocardial infarction; M06.9 Rheumatoid arthritis, unspecified
CPT/HCPCS: 73562; 81001; 87086; 87088; 87637; 99283; A9270

== ENCOUNTER 2024-09-28 10:28 | Outpatient (CLI) | payer MEDICARE, SELFPAY ==
[2024-09-28 11:07] LABS: Anion Gap 4 mmol/L (4-12); Blood Urea Nitrogen 13 mg/dL (7-17); Calcium 9.4 mg/dL (8.4-10.2); Carbon Dioxide 31 mmol/L (22-30); Chloride 101 mmol/L (98-107); Estimated Glomerular Filt Rate > 60; Glucose 117 mg/dL (65-110); Potassium 4.9 mmol/L (3.4-5.0); Sodium 136 mmol/L (137-145)
--- OUTSIDE RECORDS SUMMARY | 2024-09-28 12:12 | XMS_ITS | Referral Summary ---
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 Primary Care Provider Encounters Date Type Department Care Team Description 09/28/2024 10:00 AM CDT Office Visit [facility] Cardiology [address] [place] [address] Carmelo Wolfe MD Coronary artery disease involving [place] coronary artery of [place] heart without angina pectoris (Primary Dx); Ischemic cardiomyopathy; Status post insertion of drug eluting coronary artery stent from Last 3 Months Allergies Active Allergy Reactions Criticality Noted Date Comments Iodinated Contrast Media Unknown Low 09/28/2011 Nitrofurantoin Stomach upset Low 03/23/2024 Penicillins Unknown 05/11/2019 Acetaminophen Stomach upset Low 06/17/2020 Medications GABAPENTIN ORAL Take 600 mg by mouth daily TAKE 3 CAPSULES IN THE MORNING AND 3 CAPSULES IN THE EVENING Active cholecalciferol (VITAMIN D-3) 5,000 unit capsule cholecalciferol (vitamin D3) Take 5000units PO weekly Active aspirin 81 mg enteric coated tablet aspirin 81 mg tablet,delayed release TK 1 T PO QD Active levothyroxine (SYNTHROID) 100 mcg tablet Take 1 tablet (100 mcg total) by mouth 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 before breakfast Active albuterol HFA (PROVENTIL HFA,VENTOLIN HFA,PROAIR HFA) 90 mcg/actuation inhaler INL 2 PFS PO Q 4 H PRN 04/06/20 20 Active metFORMIN (GLUCOPHAGE) 500 mg tablet Take 1 tablet (500 mg total) by mouth 2 (two) times a day 02/10/[address] (PROTONIX) 40 mg EC tablet Take 1 tablet (40 mg total) by mouth every 12 (twelve) hours 02/11/20 21 Active montelukast (SINGULAIR) 10 mg tablet Take 1 tablet (10 mg total) by mouth nightly at bedtime 07/19/19 22 Active levocetirizine (XYZAL) 5 mg tablet Take 1 tablet (5 mg total) by mouth daily 07/19/19 22 Active clopidogreL (PLAVIX) 75 mg tablet Take 1 tablet (75 mg total) by mouth daily Active atorvastatin (LIPITOR) 80 mg tabletIndicatio ns:Coronary artery disease involving [place] coronary artery of [place] heart without angina pectoris TAKE 1 TABLET(80 MG) BY MOUTH DAILY 90 tablet 2 09/18/19 23 Active lisinopriL (PRINIVIL,ZESTR [place]) 2.5 mg tabletIndicatio ns:Cardiomyopat hy, unspecified type (HCC) TAKE 1 TABLET(2.5 MG) BY MOUTH DAILY 90 tablet 1 08/20/19 24 Active oxyCODONE-aceta minophen (PERCOCET) 7.5-325 mg per tablet Take 1 tablet by mouth every 6 (six) hours as needed 09/16/19 24 Active spironolactone (ALDACTONE) 25 mg tabletIndicatio ns:Cardiomyopat hy, unspecified type (HCC) Take 1 tablet (25 mg total) by mouth daily 90 tablet 1 09/26/19 24 Active carvediloL (COREG) 3.125 mg tabletIndicatio ns:Cardiomyopat hy, unspecified type (HCC) TAKE 1 TABLET(3.125 MG) BY MOUTH TWICE DAILY WITH MEALS 180 tablet 11/27/19 24 Active potassium chloride ER 10 mEq CR tablet TAKE 1 TABLET(10 MEQ) BY MOUTH DAILY 90 tablet 1 04/16/20 24 Active Active Problems Problem Noted Date Diagnosed Date Status post insertion of drug eluting coronary a rtery stent 09/28/2024 Hypertension associated with diabetes 03/06/2021 H/O cardiomyopathy 03/06/2021 Chronic obstructive pulmonary disease 03/06/2021 Mixed diabetic hyperlipidemi a associated with type 2 diabetes mellitus 03/06/2021 Chronic fatigue 05/20/2020 Cardiomyopathy 11/13/2019 Coronary artery disease invo lving [place] coronary artery of [place] heart without angina pectoris 11/13/2019 H/O non-ST elevation myocardial infarction (NSTE FL) 11/13/2019 Benign hypertension with CKD (chronic kidney disease) stage III 11/13/2019 LIGHT (dyspnea on exertion) 11/13/2019 Medication side effects 11/13/2019 Resolved Problems Problem Noted Date Diagnosed Date Resolved Date Dyslipidemia 11/13/2019 08/03/2021 Social History Tobacco Use Types Packs/Day Years Used Date Smoking Tobacco: Former Cigarettes Q uit: 03/30/2019 Smokeless Tobacco: Never Tobacco Cessation:Counseling Given: Yes Alcohol Use Standard Drinks/Week Comments Not Currently 0 (1 standard drink = 0.6 oz pur e alcohol) Personal Safety Answer Date Recorded Getting School Help Needed Not on file 08/09 Comments Unknown Sex and Gender Information Value Date Recorded Sex Assigned at Not on file Legal Sex Female 1: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 Gender Identity Not on file Sexual Orientation Not on file Last Filed Vital Signs Vital Sign Reading Time Taken Comments Blood Pressure 120/70 09/28/2024 9:59 AM CDT Pulse 96 09/28/2024 9:59 AM CDT Temperature 36.2 C (97.1 F) 05/24/2020 1:55 PM INTERN PRODUCT MARKETING MANAGER Respiratory Rate - - Oxygen Saturation 97% 09/28/2024 9:59 AM CDT Inhaled Oxygen Concentration - - Weight 59.9 kg (132 lb 1.6 oz) 09/28/2024 9:59 A M CDT Height 154.9 cm (5' 1 ) 09/28/2024 9:59 AM CDT Body Mass Index 24.96 09/28/2024 9:59 AM CDT Plan of Treatment Not on file Procedures Procedure Name Priority Date/Time Associated Diagnosis Comments POCT LIPID PANEL Routine 09/17/2023 1:19 PM CDT Mixed diabetic hyperlipidemia associated with type 2 diabetes mellitus (HCC) from Last 3 Months or Most Recently Relevant to Health Maintenance Results * POCT lipid panel (09/17/2023 1:19 PM CDT) Cholesterol, POC 149 mg/dL Comment:GLU = 122 HDL, POC 39 mg/dL Triglycerides, POC 223 mg/dL LDL Cholesterol POC 66 mg/dL Chol/HDL Ratio, POC 1.7 Non-HDL Cholesterol, POC 111 mg/dL Cholesterol Total, POC 149 mg/dL Capillary blood 09/17/2023 1 :19 PM CDT Tavo Lehman MD POINT OF CARE TEST ORDER RACHEL Final Result from Last 3 Months or Most Recently Relevant to Health Maintenance Insurance MEDICARE MEDICARE [facility] MEDICARE SUPPLEMENT Care Teams Power Reactor Operator Relationship Specialty Start Date End Date Mel Larson NP [address] [place] [address] PCP - General Nurse Practitioner 09/28/24
--- OUTSIDE RECORDS SUMMARY | 2024-09-28 12:12 | XMS_ITS | Clinical Summary ---
Author Organization [facility] [address] Address [address] [place] [address] Care Team Providers Care Medical Insurance Claims Specialist Name Role Phone Neo Mel Reyes PSYCHOLOGIST PRIVATE PRACTICE Primary Care Provider Allergies Active Allergy Reactions Criticality Noted Date [...] 1 tablet (100 mcg total) by mouth sample examiner before breakfast Active albuterol HFA (PROVENTIL HFA,VENTOLIN [...] 80 mg tabletIndicatio ns:Coronary artery disease involving [place] coronary artery of [place] heart without angina pectoris TAKE 1 TABLET(80 [...] Cardiomyopathy 11/13/2019 Coronary artery disease invo lving [place] coronary artery of [place] heart without angina pectoris 11/13/2019 H/O non-ST elevation myocardial infarction (NSTE [place]) 11/13/2019 Benign hypertension with CKD (chronic kidney disease) stage III 11/13/2019 LIGHT (dyspnea on exertion) 11/13/2019 Medication side effects 11/13/2019 Resolved Problems Problem Noted Date Diagnosed Date Resolved Date Dyslipidemia 11/13/2019 08/03/2021 Encounters Date Type Department Care Team Description 09/28/2024 10:00 AM CDT Office Visit [facility] Cardiology [address] [place] [address] Carmelo Wolfe MD Coronary artery disease involving [place] coronary artery of [place] heart without angina pectoris (Primary Dx); Ischemic cardiomyopathy; Status post insertion of drug eluting coronary artery stent from Last 3 Months Surgical History Surgery Date Site/Laterality Comments CHOLECYSTECTOMY REPLACEMENT TOTAL KNEE BILATERAL HYSTERECTOMY CARDIAC CATHETERIZATION CORONARY ANGIOPLASTY Medical History Medical History Date Comments Heart attack (HCC) Heart failure (HCC) Thyroid disease Diabetes mellitus (HCC) Wears dentures Stomach ulcer Pneumonia Cataracts, bilateral COPD (chronic obstructive pulmonary disease) (HC C) Chronic bronchitis (HCC) H/O: knee surgery H/O blood clots Deep venous thrombosis (HCC) Coronary artery disease Systolic heart failure (HCC) CHF (congestive heart failure) (HCC) Hypertension Rheumatoid arthritis (HCC) Family History Medical History Relation Name Comments Diabetes Brother Heart attack Father Heart attack Mother Relation Name Status Comments Brother Alive Father (Age 69) Mother (Age 83) Social History Tobacco Use Types Packs/Day Years [...] on file Legal Sex 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 Gender Identity Not on file Sexual Orientation Not on file Obstetrics History Last Filed Vital Signs Vital Sign Reading Time Taken Comments Blood Pressure 120/70 09/28/2024 9:59 AM CDT Pulse 96 09/28/2024 9:59 AM CDT Temperature 36.2 C (97.1 F) 05/24/2020 1:55 PM SCHEDULE PLANNING MANAGER Respiratory Rate - - Oxygen Saturation 97% 09/28/2024 9:59 AM CDT Inhaled Oxygen Concentration - - Weight 59.9 kg (132 lb 1.6 oz) 09/28/2024 9:59 A M CDT Height 154.9 cm (5' 1 ) 09/28/2024 9:59 AM CDT Body Mass Index 24.96 09/28/2024 9:59 AM CDT Plan of Treatment Health Maintenance Due Date Last Done Comments Albumin Creatinine Ratio, Urine 1936 Depression Screening 1936 Fall Risk Assessment 1936 Hemoglobin A1C 1936 eGFR 1936 Dilated Eye Exam 1936 Foot Exam 1936 Hepatitis B Screening 1954 Well Visit 65+ 2001 Zoster Vaccine (2 of 3) 02/27/2012 01/02/2012 Lipid Panel 09/16/2024 09/17/2023, 08/01, 08/03/2021, Additional history exists DTaP/Tdap/Td Vaccine (2 - Td or Tdap) 11/04/2024 11/04/2014 Influenza Vaccine (Season Ended) 2025 02/03/2020, 01/24/2019, 03/05/2018, Additional history exists Pneumococcal vaccine 65+ Completed 01/24/2019, 06/2011 Procedures Procedure Name Priority Date/Time Associated Diagnosis [...] Most Recently Relevant to Health [place] [address] [place] [address] MEDICARE [facility] MEDICARE SUPPLEMENT Care Teams Medical Insurance Claims Specialist Relationship Specialty Start Date End Date Mel Larson NP [address] [place] [id number] PCP - General Nurse Practitioner 09/28/24
--- OUTSIDE RECORDS SUMMARY | 2024-09-28 12:12 | XMS_ITS | Encounter Summary ---
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 Primary Care Provider Reason for Visit * Reason Comments Coronary Artery Disease 6 mo f/u Encounter Details Date Type Department Care Team (Late st Contact Info) Description 09/28/2024 10:00 AM CDT Office Visit [facility] Cardiology [address] [facility] [address] [place] [phone] Carmelo Wolfe MD [address] [place] [address] Coronary artery disease involving [place] coronary artery of [place] heart without angina pectoris (Primary Dx); Ischemic cardiomyopathy; Status post insertion of drug eluting coronary artery stent Social History Tobacco Use Types Packs/Day Years Used Date Smoking Tobacco: Former Cigarettes Q uit: 03/30/2019 Smokeless Tobacco: Never Alcohol Use Standard Drinks/Week Comments Not Currently 0 (1 standard drink = 0.6 oz pur e alcohol) Personal Safety Answer Date Recorded Getting School Help Needed Not on file 08/09 Comments Unknown Sex and Gender Information Value Date Recorded Sex Assigned at Not on file 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 Gender Identity Not on file Sexual Orientation Not on file documented as of this encounter Last Filed Vital Signs Vital Sign Reading Time Taken Comments Blood Pressure 120/70 09/28/2024 9:59 AM CDT Pulse 96 09/28/2024 9:59 AM CDT Temperature - - Respiratory Rate - - Oxygen Saturation 97% 09/28/2024 9:59 AM CDT Inhaled Oxygen Concentration - - Weight 59.9 kg (132 lb 1.6 oz) 09/28/2024 9:59 A M CDT Height 154.9 cm (5' 1 ) 09/28/2024 9:59 AM CDT Body Mass Index 24.96 09/28/2024 9:59 AM CDT documented in this encounter Progress Notes * Carmelo Wolfe MD - 09/28/2024 10:00 AM CDT [facility] FOLLOW UP 09/28/2024 Mamie Beckham is a 89 y.o. female who presents for follow up of coronary artery disease and previous myocardial infarction. This is a patient who presented to the hospital in March of 2019 with chest pain and evidence of acute coronary syndrome. According to the chart she was brought for cardiac catheterization and had high-grade disease treated in the LAD with PTCA and stenting. She did well following that and has been seen in the office by Dr. Lehman since then. According to the records left ventricular systolic function was poor following the initial event with an ejection fractionof 25-30%. Following revascularization and medical treatment that has clearly improved with the echo in April of 2023 showing an ejection fraction of 50%. She presents today for scheduled six-month appointment. She says that she is basically feeling wellat this time she had a variety of symptoms she was frustrated about at the time of her last appointment. She says that her physician found this was all related to a urinary infection which was now been treated and she is very happy happy that she has resolved lot of her complaints. I did discuss with her electrolyte concerns since she is taking lisinopril, spironolactone as well as a potassium supplement. REVIEW OF SYSTEMS General ROS: negative for - chills, fatigue, fever, malaise, night sweats, weight gain or weight loss Psychological ROS: negative for - anxiety, depression, memory difficulties or sleep disturbances Ophthalmic ROS: negative for - blurry vision, decreased vision, loss of vision or scotomata ENT ROS: negative for - epistaxis, headaches, hearing change, nasal congestion, nasal discharge, sore throat, vertigo or visual changes Hematological and Lymphatic ROS: negative for - bleeding problems, blood clots, bruising, fatigue or weight loss Endocrine ROS: negative for - hot flashes, palpitations, polydipsia/polyuria or unexpected weight changes Respiratory ROS: negative for - cough, hemoptysis, orthopnea, shortness of breath, tachypnea or wheezing Cardiovascular ROS: negative for - chest pain, dyspnea on exertion, edema, irregular heartbeat, loss of consciousness, murmur, orthopnea, palpitations, paroxysmal nocturnal dyspnea, rapid heart rate or shortness of breath Gastrointestinal ROS: negative for - abdominal pain, appetite loss, blood in stools, constipation, diarrhea, gas/bloating, heartburn, hematemesis, melena or nausea/vomiting Genito-Urinary ROS: negative for - dysuria, erectile dysfunction or hematuria Musculoskeletal ROS: negative for - joint pain, muscle pain or muscular weakness Dermatological ROS: negative for dry skin, eczema, pruritus and rash HOME MEDICATIONS Current Outpatient Medications: albuterol HFA (PROVENTIL HFA,VENTOLIN HFA,PROAIR HFA) 90 mcg/actuation inhaler, INL 2 PFS PO Q 4 H PRN, Disp: , Rfl: aspirin 81 mg enteric coated tablet, aspirin 81 mg tablet,delayed release TK 1 T PO QD, Disp: , Rfl: atorvastatin (LIPITOR) 80 mg tablet, TAKE 1 TABLET(80 MG) BY MOUTH DAILY, Disp: 90 tablet, Rfl: 2 carvediloL (COREG) 3.125 mg tablet, TAKE 1 TABLET(3.125 MG) BY MOUTH TWICE DAILY WITH MEALS, Disp: 180 tablet, Rfl: 0 cholecalciferol (VITAMIN D-3) 5,000 unit capsule, cholecalciferol (vitamin D3) Take 5000units PO weekly, Disp: , Rfl: clopidogreL (PLAVIX) 75 mg tablet, Take 1 tablet (75 mg total) by mouth daily, Disp: , Rfl: GABAPENTIN ORAL, Take 600 mg by mouth daily TAKE 3 CAPSULES IN THE MORNING AND 3 CAPSULES IN THE EVENING, Disp: , Rfl: levocetirizine (XYZAL) 5 mg tablet, Take 1 tablet (5 mg total) by mouth daily, Disp: , Rfl: levothyroxine (SYNTHROID) 100 mcg tablet, Take 1 tablet (100 mcg total) by mouth 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 before breakfast, Disp: , Rfl: lisinopriL (PRINIVIL,ZESTRIL) 2.5 mg tablet, TAKE 1 TABLET(2.5 MG) BY MOUTH DAILY, Disp: 90 tablet,Rfl: 1 metFORMIN (GLUCOPHAGE) 500 mg tablet, Take 1 tablet (500 mg total) by mouth 2 (two) times a day, Disp: , Rfl: montelukast (SINGULAIR) 10 mg tablet, Take 1 tablet (10 mg total) by mouth nightly at bedtime, Disp: , Rfl: oxyCODONE-acetaminophen (PERCOCET) 7.5-325 mg per tablet, Take 1 tablet by mouth every 6 (six) hours as needed, Disp: , Rfl: pantoprazole DR (PROTONIX) 40 mg EC tablet, Take 1 tablet (40 mg total) by mouth every 12 (twelve) hours, Disp: , Rfl: potassium chloride ER 10 mEq CR tablet, TAKE 1 TABLET(10 MEQ) BY MOUTH DAILY, Disp: 90 tablet, Rfl:1 spironolactone (ALDACTONE) 25 mg tablet, Take 1 tablet (25 mg total) by mouth daily, Disp: 90 tablet, Rfl: 1 LABS AND OTHER DIAGNOSTIC TESTS No results found for: CHOL No results found for: HDL No results found for: LDLCALC No results found for: TRIG No results found for: CHOLHDL No results found for: WBC , HGB , HCT , MCV , PLT No lab exists for component: LABALBU PHYSICAL EXAM Vitals BP 120/70 (BP Location: Left arm, Patient Position: Sitting) Pulse 96 Ht 154.9 cm (5' 1 ) Wt 59.9 kg (132 lb 1.6 oz) SpO2 97% BMI 24.96 kg/m?? Physical Examination: General appearance - alert, elderly white female, and in no distress, oriented to person, place, and time and acyanotic, in no respiratory distress Mental status - affect appropriate to mood Eyes - extraocular eye movements intact, sclera anicteric, no pallor Ears - external earsappear normal, hearing grossly normal bilaterally Nose - normal and patent, no erythema or discharge Mouth - mucous membranes moist, pharynx appears normal, dental hygiene good and tongue normal Neck - supple, no significant neck masses, carotids upstroke normal bilaterally, no bruits, no JVD Chest -diffusely reduced breath sounds in both lung gross soft expiratory wheezing noted bilaterally symmetric air entry, no tachypnea, retractions or cyanosis Heart - normal rate, regular rhythm, normal S1, S2, no murmurs, rubs, clicks or gallops, no JVD Abdomen - soft, nontender, nondistended, no masses or organomegaly bowel sounds normal Neurological - alert, oriented, normal speech, no focal findings or movement disorder noted Musculoskeletal - no joint tenderness, deformity or swelling, no muscular tenderness noted Extremities - peripheral pulses normal, no pedal edema, no clubbing or cyanosis Skin - normal coloration and turgor, no rashes, no suspicious skin lesions noted ASSESSMENT Mamie was seen today for coronary artery disease. Diagnoses and all orders for this visit: Coronary artery disease involving [place] coronary artery of [place] heart without angina pectoris Ischemic cardiomyopathy - Basic metabolic panel; Future Status post insertion of drug eluting coronary artery stent PLAN/RECOMMENDATIONS Continue current regimen for now Order basic metabolic profile Follow-up 6 months or PRN Carmelo Wolfe MD documented in this encounter Plan of Treatment Scheduled Orders Name Type Priority Associated Diagnoses Orde r Schedule Basic metabolic panel Lab Routine Ischemic cardiomyopathy Expected: 09/28/2024, Expires: 09/28/2025 documented as of this encounter Visit Diagnoses Diagnosis Coronary artery disease involving [place] coronary artery of [place] heart without angina pectoris- Primary Ischemic cardiomyopathy Other specified forms of chronic ischemic heart disease Status post insertion of drug eluting coronary artery stent documented in this encounter Care Teams Survey Technologist Relationship Specialty Start Date End Date Mel Larson NP [address] [place] [address] PCP - General Nurse Practitioner 09/28/24 documented as of this encounter
--- OUTSIDE RECORDS SUMMARY | 2024-09-28 12:12 | XMS_ITS | CONTINUITY OF CARE DOCUMENT ---
Author Name henna, henna Address Unknown Organization [facility] Address [address] [place] [address] [address] [place] [address] Phone [phone] Care Team Providers Care Job Placement Officer Name Role Phone Michelle Osborne MD Unavailable EUGENIA HAND MD Unavailable [phone] EUGENIA HAND MD Unavailable [phone] PROBLEMS Condition Status Date Provider Notes CHEST PAIN-10/12 NUC NL EF 74 active ? Michelle Osborne MD OBESITY active Michelle Osborne MD SHORTNESS OF BREATH-04/14 BROOKE NEG completed - 1 Amos Gonzalez HTN SYSTOLIC-09/12 ECHO EF 75 active ? Michelle Osborne MD RENAL ARTERY STENOSIS-04/14 RONALD DUP NEG active ? Michelle Osborne MD AAA-04/14 ABD US NEG active ? Michelle valle MD CAROTID ARTERY DISEASE- 04/03 2 CAROTID NEG active ? Michelle Osborne MD SHORTNESS OF BREATH active Michelle richmond MD Family History of Hypertension: completed - Edilson Gonzalez Family History of Hypertension: completed - Edilson Gonzalez Carotid bruits-mild active Michelle richmond MD ENCOUNTERS Date Type Provider Location Encounter Diag nosis - In-person encounter Office Visit Michelle Osborne MD [place] [facility] - In-person encounter Office Visit Michelle Osborne MD [place] [facility] - In-person encounter Office Visit Michelle Osborne MD [place] [facility] - In-person encounter Office Visit Michelle Osborne MD [place] [facility] Family History of Hypertension:Family History of Hypertension: - In-person encounter Office Visit Michelle Osborne MD [place] [facility] Carotid bruits-mild - In-person encounter Office Visit Michelle Osborne MD [place] [facility] - In-person encounter Office Visit Michelle Osborne MD [place] [facility] HTN SYSTOLIC-09/12 ECHO EF 75RENAL ARTERY STENOSIS-04/14 RONALD DUP NEGAAA-04/14 ABD US NEGCAROTID ARTERY DISEASE- 04/14 CAROTID NEGSHORTNESS OF BREATH - In-person encounter Office Visit Michelle Osborne MD [place] [facility] - In-person encounter Office Visit Michelle Osborne MD [place] [facility] CHEST PAIN-10/12 NUC NL EF 74 - In-person encounter Office Visit Michelle Osborne MD [place] [facility] CHEST PAIN-10/12 NUC NL EF 74OBESITYSHORTNESS OF BREATH-04/14 BROOKE NEGHTN SYSTOLIC-09/12 ECHO EF 75 VITAL SIGNS Date Observation Value Provider Body Mass Index (Ratio) 32.55 kg/m2 Yonas Mccurdy blood pressure, cuff size large Ke rri Sarai blood pressure, diastolic 80 mm[Hg] Johnny rri Sarai blood pressure, systolic 150 mm[Hg] Aaron Moon oxygen saturation, oximetry 98 % Meli Moon respiratory rate E&M 20 /min Meli argueta pulse rate 96 /min Meli crockerer weight E&M 178 [lb_av] Meli crockerer height E&M 62 [in_i] Meli Monteiro lder Body Mass Index (Ratio) 33.28 kg/m2 Yonas n Kyte blood pressure, diastolic 80 mm[Hg] Da guru Stevenson blood pressure, systolic 142 mm[Hg] Dac ia Stevenson respiratory rate E&M 20 /min Nina V oss oxygen saturation, oximetry 95 % Nina Stevenson pulse rate 88 /min Nina Stevenson weight E&M 182 [lb_av] Nina Stevenson height E&M 62 [in_i] Nina Stevenson Body Mass Index (Ratio) 35.48 kg/m2 New Osborne MD blood pressure, cuff size regular Ke rri Sarai blood pressure, diastolic 80 mm[Hg] Ke rri Sarai blood pressure, systolic 142 mm[Hg] Aaron Moon oxygen saturation, oximetry 97 % Meli Moon respiratory rate E&M 16 /min Meli argueta pulse rate 82 /min Meli Monteiro er weight E&M 194 [lb_av] Meli Monteiro er height E&M 62 [in_i] Meli Monteiro er blood pressure, diastolic 80 mm[Hg] Donato Enamorado blood pressure, systolic 160 mm[Hg] Allison Enamorado pulse rate 86 /min Rosa sorensen oxygen saturation, oximetry 97 % Rosa Enamorado respiratory rate E&M 18 /min Courtney Enamorado Body Mass Index (Ratio) 35.48 kg/m2 Anea cici Moises blood pressure, diastolic 84 mm[Hg] An eatris Moises blood pressure, systolic 142 mm[Hg] Ane atris Brown pulse rate 72 /min Aneatris Moises oxygen saturation, oximetry 97 % Angelique De Leon respiratory rate E&M 17 /min Vadim richmond Moises weight E&M 194 [lb_av] Angelique De Leon Body Mass Index (Ratio) 33.22 kg/m2 Camille rodriguez Elkins blood pressure, diastolic 90 mm[Hg] Me del castillo Elkins blood pressure, systolic 140 mm[Hg] Dorcas miramontes Elkins pulse rate 108 /min Eugenia Elkins oxygen saturation, oximetry 98 % Eugenia Elkins respiratory rate E&M 18 /min Eugenia Elkins weight E&M 181 [lb_av] Eugenia Elkins Body Mass Index (Ratio) 33.41 kg/m2 Whitley thomas Corinne blood pressure, diastolic 92 mm[Hg] Irineo arana Corinne blood pressure, systolic 165 mm[Hg] Enoc vizcaino Corinne pulse rate 99 /min Kendra Corinne oxygen saturation, oximetry 98 % Kendra Corinne respiratory rate E&M 16 /min Kendra Cori covarrubias weight E&M 182 [lb_av] Kendra Corinne blood pressure, diastolic 81 mm[Hg] Aries Price RN blood pressure, systolic 159 mm[Hg] Blayne Price RN pulse rate 90 /min Blayne Price RN oxygen saturation, oximetry 96 % Blayne Price RN respiratory rate E&M 17 /min Blayne jade RN weight E&M 205 [lb_av] Blayne Price RN height E&M 62 [in_i] Blayne Price RN blood pressure, diastolic 86 mm[Hg] Deysi burton [place] blood pressure, systolic 132 mm[Hg] Bartolo colunga [place] pulse rate 96 /min Rodney [place] oxygen saturation, oximetry 98 % [facility] E&M 20 /min Atka [place] weight E&M 203 [lb_av] Atka [place] blood pressure, diastolic 98 mm[Hg] Deysi seph [place] blood pressure, systolic 164 mm[Hg] Bartolo eph [place] pulse rate 86 /min [facility], oximetry 97 % [facility] rate E&M 20 /min Atka [place] weight E&M 201 [lb_av] [facility] ALLERGIES Allergy Name Onset Date Reaction Criticality Status PENICILLIN Low Criticality active IVP DYE Low Criticality active RESULTS Date Observation Value Provider Reference Range Interpretation Location triglyceride, serum, fasting 192 mg/dL [facility] HDL cholesterol, serum 38 mg/dL [facility] lipoprotein, beta, serum, point, quantitative, calculated 59 mg/dL [facility] cholesterol, serum 135 mg/dL [facility] thyroid stimulating hormone, serum 0.583 u[IU]/mL [facility] alanine aminotransferase (SGPT), serum 19 1/L [facility] aspartate aminotransferase (SGOT), serum 21 1/L [facility] creatinine, serum 0.70 mg/dL [facility] potassium, serum 3.5 mmol/L [facility] sodium, serum 145 mmol/L [facility] thyroid stimulating hormone, serum 1.920 u[IU]/mL [facility] HISTORY OF MEDICATION USE Medication Status Instructions Dates Provider Indications Com ments VENTOLIN HFA 108 (90 Base) MCG/ACT INHALATION AEROSOL SOLUTION active ONE PUFF EACH 8 HOURS TRN SHORTNESS OF BREATH 11/23 Eleuterio Bey SULINDAC 200 MG ORAL TABLET active take one pill a day 11/23 Meli Moon GABAPENTIN 300 MG ORAL CAPSULE active 4 times a day 11/23 Meli Moon GLATAMINE DIETARY SUPPLEMENT completed 1 daily - 10/06 Eugenia Elkins CHROMIUM PICOLINATE CAPSULE completed 1 caps daily - 10/06 Eugenia Elkins FOLIC ACID 400 MCG ORAL TABLET completed 1 tab daily - 10/06 Eugenia Elkins DILTIAZEM CD 180MG CAPSULES active TAKE 1 CAPSULE BY MOUTH EVERY EVENING 01/14 Carlos Goode VITAMIN D3 70084 UNIT ORAL CAPSULE active weekly Michelle Osborne MD LIPITOR 10 MG ORAL TABLET active ONE TAB. DAILY Michelle Osborne MD METFORMIN HCL 500 MG ORAL TABLET active twice daily Michelle Osborne MD DILT-CD 180 MG ORAL CAPSULE EXTENDED RELEASE 24 HOUR completed one rtablet each night 10/04 - 10/31 Kendra Sun CLARITIN TABLET active 1 tablet by mouth daily Rodney Looney OSCAL 500/200 D-3 TABLET completed 1 tablet by mouth daily - 10/31 Kendra Sun OMEPRAZOLE CPDR completed 1 capsule by mouth daily - 10/31 Kendra Sun HYDROCHLOROTHIAZIDE 25 MG ORAL TABLET active 1 tablet by mouth daily Michelle Osborne MD LEVOTHYROXINE SODIUM 100 MCG ORAL TABLET active 1 tablet by mouth daily Michelle Osborne MD NEXIUM 40 MG ORAL CAPSULE DELAYED RELEASE completed 1 capsule by mouth daily - 07/02 Blayne Price RN SULINDAC 200 MG ORAL TABLET completed 1 tablet by mouth twice daily - 10/31 Kendra Sun SPIRIVA HANDIHALER 18 MCG INHALATION CAPSULE active 1 capsule by mouth daily Rodney Looney SOCIAL HISTORY Date Observation Value Provider social history E&M Marital Statu s: Oralia velasco with family/friends E thnicity: Smoking History: Janet cobb is a former smoker. Amadou Mccurdy social history reviewed E&M i ewed - no changes required Amadou Mccurdy physical exercise, f requency, days per week no Meli Moon alcohol use, average drinks per day none Meli Moon alcohol use no Meli gan caffeine use, averag e drinks per day yes Meli Sarai drug use none Meli Chenge lizzetteer passive cigarette sm petra exposure no Meli Sarai smoking status Former smoker Meli Shirleyanselmo carrizales number of grandchildren Michelle Mccurdy social history E&M Marital Statu s: L krista with family/friends E thnicity: Smoking History: P jordyn is a former smoker. Amadou Mccurdy social history reviewed E&M revi ewed - no changes required Amadou Mccurdy physical exercise, f requency, days per week no Nina Stevenson alcohol use, average drinks per day none Nina Stevenson alcohol use no Nina Stevenson caffeine use, averag e drinks per day yes Nina Stevenson drug use none Nina Stevenson passive cigarette sm petra exposure no Nina Stevenson smoking status Former smoker Nina Stevenson social history reviewed E&M revi ewed - no changes required Eleuterio Bey physical exercise, f requency, days per week no Melijakub Moon alcohol use, average drinks per day none Meli Sarai alcohol use no Meli Thania crockerer caffeine use, averag e drinks per day yes Meli Sarai drug use none Meli Chenge lder passive cigarette sm petra exposure no Meli Sarai smoking status Former smoker Meli Shirleyanselmo carrizales social history E&M Marital Statu s: L krista with family/friends E thnicity: Smoking History: Janet cobb is a former smoker. Amos Gonzalez social history reviewed E&M revi ewed - no changes required Michelle Osborne MD physical exercise, f requency, days per week no Rosa Enamorado alcohol use, average drinks per day none Rosa Fei alcohol use no Rosa Peterson helenarainer caffeine use, averag e drinks per day yes Rosa Enamorado drug use none Rosa sorensen passive cigarette sm petra exposure no Rosa Enamorado smoking status Former smoker Rosa Braun social history E&M Marital Statu s: L krista with family/friends E thnicity: Janet cobb is a former smoker. Smoking History: Janet cobb is a former smoker. Janet cobb has been counseled to quit. Michelle Osborne MD smoking/tobacco cess ation, patient education and counseling yes Michelle Osborne MD social history reviewed E&M lalita santana - no changes required Michelle Osborne MD smoking status Former smoker Michelle palma MD social history reviewed E&M reviewed Michelle Osborne MD social history reviewed E&M reviewed Blayne Price RN drug use none Michelle valle MD smoking history, tot al pack/year Blayne Price RN smoking, year quit 2010 Blayne richmond RN social history reviewed E&M reviewed Blayne Price RN smoking status former smoker Blayne Garza social history reviewed E&M reviewed Blayne Price RN drug use none Michelle valle MD passive cigarette sm petra exposure no Michelle Osborne MD smoking/tobacco cess ation, patient education and counseling yes Michelle Osborne MD social history E&M Marital Statu s: L krista with family/friends E thnicity: Blayne Price RN social history reviewed E&M reviewed Blayne Price RN physical exercise, f requency, days per week no LinkLog caffeine use, averag e drinks per day yes LinkLog alcohol use, average drinks per day none [facility] a [facility] less than 10 years [facility] smoking status Quit [facility] MENTAL STATUS Date Observation Value Provider assessment of judgment and insight E&M an xious. Michelle Osborne MD assessment of judgment and insight E&M an xious. Blayne Price RN assessment of judgment and insight E&M an xious. Blyane Price RN assessment of judgment and insight E&M an xious. Blayne Price RN assessment of judgment and insight E&M an xious. Michelle Osborne MD FAMILY HISTORY Family Member Condition Mother Family History of Hy pertension: Father Family History of Co ronary Artery Disease: Father Family History of Hy pertension: INSURANCE PROVIDERS Payer name Policy type / Coverage type [place] red green party ID [facility] [id number] [place] [employer] Medicare [id number] ADVANCE DIRECTIVES Name Date DISCUSSED - NO DECISION MADE TREATMENT PLAN Date Name Performer Electrophysiology Follow up Yonas Mccurdy Electrophysiology Fo llow up:Carotids today were normal. Amadou Mccurdy Electrophysiology Fo llow up: H er updated medication list for this problem includes: Hydrochlorothiazide 25 Mg Oral Tablet (Hydrochlorothiazide) ..... 1 tablet by mouth daily Cartia Xt 180 Mg Oral Capsule Extended Release 24 Hour (Diltiazem hcl coated beads) ..... 1 capsule every evening Orders: 9 9213 LTD. Complex (CPT-05493) F VC - 56860 (19842) F RC - 57872 (44677) D LCO - 95526 (15793) S chedule Followup (*) Amadou Mccurdy Electrophysiology Fo llow up:Will check AAA in 6 months. Orders: A ayaan Duplex Ultrasound (AAA) (CPT-00854) Amadou Mccurdy Cardiology follow up : O rders: C omplete Echo (CPT-03109) C arotid Duplex Bilateral (CPT-21146) S chedule Followup (*) Amadou Mccurdy Cardiology follow up : O rders: C omplete Echo (CPT-43120) C arotid Duplex Bilateral (CPT-47184) 9 9215 HIGH Complex (CPT-68150) Amadou Mccurdy Cardiology follow up : H er updated medication list for this problem includes: Cartia Xt 180 Mg Oral Capsule Extended Release 24 Hour (Diltiazem hcl coated beads) ..... 1 capsule every evening O rders: C omplete Echo (CPT-94560) C arotid Duplex Bilateral (CPT-05871) S chedule Followup (*) 9 9215 HIGH Complex (CPT-72767) Amadou Ky Cardiology follow up : H er updated medication list for this problem includes: Hydrochlorothiazide 25 Mg Oral Tablet (Hydrochlorothiazide) ..... 1 tablet by mouth daily Cartia Xt 180 Mg Oral Capsule Extended Release 24 Hour (Diltiazem hcl coated beads) ..... 1 capsule every evening BP today: 142/80 P rior BP: 142/80 (11/23/2016) Amadou Ky EP:Echo 11/23/2016 ows: 1 . Technically difficult study, limited views secondary to poor acoustic windows. Interpretation is b ased on available limited views. Normal left ventricular systolic function. Normal left ventricular size. N ormal left ventricular wall thickness. Left ventricular ejection fraction is estimated at 60 %. 2 . Normal right ventricular size. Normal right ventricular systolic function. 3 . The mitral valve is normal in appearance and function. There is trace physiologic mitral valve r egurgitation. Her updated medication list for this problem includes: Cartia Xt 180 Mg [id number] (Diltiazem hcl coated beads) ..... 1 capsule every evening Eleuterio Bey EP: B P today: 142/80 P rior BP: 160/80 (11/25/2015) H er updated medication list for this problem includes: Hydrochlorothiazide 25 Mg Tabs (Hydrochlorothiazide) ..... 1 tablet by mouth daily Cartia Xt 180 Mg [id number] (Diltiazem hcl coated beads) ..... 1 capsule every evening Eleuterio Bey EP:Patient SOB. Uses Spir[facility]. Given rx for Ventolin to use as needed. PFTs (11/23/2016) show small airway obstruction. O rders: C omplete Echo (CPT-91904) S chedule Followup (*) Eleuterio Sotero EP:Carotid duplex fi ndings: (11/23/2016) 1 . Normal carotid duplex examination. 2 . Vertebral flow is antegrade bilaterally. Eleuterio Bey Cardiology faxed 12/01:Orders: S NOMED-CT: [id number] Current Medications Documented ([id number]) E KG (CPT-92800) Amos Gonzalez Cardiology faxed 12/02/15:Her updated medication list for this problem includes: Cartia Xt 180 Mg [id number] (Diltiazem hcl coated beads) ..... 1 capsule every evening Amos Gonzalez Cardiology faxed 12/01: H er updated medication list for this problem includes: Cartia Xt 180 Mg [id number]-[id number] (Diltiazem hcl coated beads) ..... 1 capsule every evening Michelle Osborne MD Cardiology faxed 12/02/15 Michelle Osborne MD Date Name Aorta Duplex Ultraso und (AAA) DLCO - 60925 FRC - 93925 FVC - 91199 Carotid Duplex Bilat eral Complete Echo Complete Echo Carotid Duplex Bilat eral Complete Echo DLCO - 06429 FRC - 14368 FVC - 65095 Complete Echo Carotid Duplex Bilat eral Full PFT Complete Echo Carotid Duplex Bilat eral Complete Echo Spirometry Spirometry Carotid Duplex Bilat eral Renal Artery Duplex Aortic Abdominal Ult rasound Stress Test - Nuclea r Complete Echo HISTORY OF PROCEDURES Procedure Date Procedure Name Provider Procedure Notes S yvrose Schedule Followup Michelle mariscal MD In 6 months completed EKG Michelle richmond MD completed Schedule Followup Michelle mariscal MD In 1 month completed Schedule Followup Michelle mariscal MD In 1 month completed EKG Michelle richmond MD completed Schedule Followup Michelle mariscal MD in one year completed EKG Michelle richmond MD completed SNOMED-CT: [id number] Current Medications Documented Michelle Osborne MD completed FVC / MVV with bronchodilator - 06972 Michelle Osborne MD completed BLOOD COUNT HEMOGLOBIN Michelle spicer MD completed FRC - 12331 Michelle richmond MD completed SpO2 - 86630 Michelle richmond MD completed DLCO - 55121 Michelle richmond MD completed EKG Michelle richmond MD completed SNOMED-CT: [id number] Current Medications Documented Michelle Osborne MD completed EKG Michelle richmond MD completed Schedule Followup Michelle mariscal MD fu in 1 year completed EKG Michelle richmond MD completed Schedule Followup Michelle mariscal MD fu in 1 year completed EKG Michelle richmond MD completed Schedule Followup Michelle mairscal MD completed ePrescribe - Check t his box if eRx is used Michelle Osborne MD completed EKG Michelle richmond MD completed Schedule Followup Michelle mariscal MD fu in [address] Dylon Shelley enal artery US , abdominal US and carotid doppler stidues in 6 months completed
--- OUTSIDE RECORDS SUMMARY | 2024-09-28 12:12 | XMS_ITS | Continuity of Care Document ---
Author Organization [facility] Address [address] [place] [address] utive [facility] [address] [place] [address] Phone Care Team Providers Care Alterations Sewer Name Role Phone Twin Vickers Unavailable Unavailable [...] Copied on Encounter Office/outpat ient Visit, [facility], [address], [place], [place], [id number], [place] tel:[phone] [facility] No Information 0 [place]. [address] [place], [place] [address]ate [place] , [address], [place], [address], [place]. tel:[phone] Referring Provider: Erick Barriga, [address] [facility] [address], [place], [address]. tel:[phone] Office/outpat ient Visit, [facility], [address] [place] [address] [address], [place], [place], [id number], tel:[phone] [place] [address] No Information 6- 0 Krishnasamy Erick. [address] [place] [address], [facility], . tel:[phone] Referring Provider: Baltazar Mendoza, [address] [place] [address], [facility]. tel:[phone] [place] [address], [address] [place] [address] [address], [place], [place], [id number], tel:[phone] [place] [address] No Information 2- 0 Krishnasamy Erick. [address] [place] [address], [facility], [place]. tel:[phone] Referring Provider: Baltazar Mendoza, [address] [place] [address], [facility]. tel:[phone] [place] [address], [address] [place] [address] [address], [place], [place], [id number], tel:[phone] [place] [address] No Information 4- 0 Krishnasamy Eirck. [address] [place] [address], [facility], [place]. tel:[phone] Referring Provider: Baltazar Mendoza, [address] [place] [address], [facility]. tel:[phone] [place] [address], [address] [place] [address] [address], [id number], tel:[phone] [place] [address] No Information 6- 0 Krishnasamy Erick. [address] [place] [address], [facility], [place]. tel:[phone] Referring Provider: Baltazar Mendoza, [address] [place] [address], [facility]. tel:[phone] [facility], [address] [place] [address] [address], [place], [place], [id number], tel:[phone] [place] [address] No Information - 0 Krishnasamy Erick. [address], [facility], [place]. tel:[phone] Referring Provider: Baltazar Mendoza, [address] [place] [address], [facility]. tel:[phone] [facility], [address] [place] [address] [address], [id number], tel:[phone] [place] [address] No Information 0 Krishnasamy Erick. [address] [place] [address], [facility], [place]. tel:[phone] Referring Provider: Baltazar Mendoza, [address] [place] [address], [facility]. tel:[phone] [facility], [address] [place] [address] [address], [place], [place], [id number], [place] tel:[phone] [place] [address] No Information 0 Krishnasamy Erick. [facility] [address], [facility], [place]. tel:[phone] Referring Provider: Baltazar Mendoza, [address] [place] [address], [facility]. tel:[phone] [facility], [address] [place] [address] [address], [place], [id number], [place] tel:[phone] [place] [address] No Information 0 Krishnasamy Erick. [address] [place], [facility], . tel:[phone] Referring Provider: Baltazar Mendoza, [address] [facility] [address], [place], [facility]. tel:[phone] [facility], [address] [facility] [address], [place], [place], [id number], tel:[phone] [facility] No Information May-0 9-200 8 Camacho OD Baltazar. [address] [facility] , [address], [place], [facility], . tel:[phone] [facility], [address] [facility], [place], [place], [id number], tel:[phone] [facility] No Information Mar-2 0-200 7 Camacho OD Baltazar. [facility] , [address], [place], [facility], . tel:[phone] Family History Family Member Type Diagnosis Age At Onset No Information Payers Payer name Insurance type Covered republican ID Authoriza tion(s) Medicare [facility] [id number] [place] [id number] Social History Type Description Quantity Date Captured [...]
== END 2024-09-28 10:29 | disposition home or self-care (01) ==
PROVIDERS: PCP Nurse Practitioner Family; Visit Provider Specialist
DX: I25.5 Ischemic cardiomyopathy (principal)
CPT/HCPCS: 36415; 80048

== ENCOUNTER 2025-04-21 10:59 | Emergency (ER) | payer MEDICARE, SELFPAY ==
--- OUTSIDE RECORDS SUMMARY | 2010-02-08 07:30 | XMS_ITS | Continuity of Care Document ---
Author Organization [facility] Address [address] [place] [address] utive [facility] 150 [place] [address] Phone Care Team Providers Care Tower Air Traffic Control Specialist Name Role Phone Twin Vickers Unavailable Unavailable Procedures Procedure Date Office/outpatient Visit, Est Office/outpatient Visit, Est Post-op Follow-up Visit Post-op Follow-up Visit Post-op Follow-up Visit Post-op Follow-up Visit Post-op Follow-up Visit Remove Cataract, Insert Lens,Comanaged F PreOp Assessment Performed Presbyopia Correcting IOL Eye Exam & Treatment IOLMaster Eye Exam & Treatment Refraction Eye Exam & Treatment Refraction Advance Directives Directive Yes / No Effective Date File Name No Information Encounters Encounter Description Practice Location Reason(s) For Visit Diagnoses Date Provider Providers Copied on Encounter Office/outpat ient Visit, Est [facility], [address], [place], [place], [id number], [place] tel:[phone] [facility] No Information 0 [place]. [address] [place], [place] [address]ate [place] , [address], [place], [address], [place]. tel:[phone] Referring Provider: Erick Barriga, [address] [facility] [address], [place], [address]. tel:[phone] Office/outpat ient Visit, Est [facility], [address] [place] [address] [address], [place], [place], [address], tel:[phone] [place] [address] No Information 6- 0 Krishnasamy Erick. [address] [place] [address], [facility], . tel:[phone] Referring Provider: Baltazar Mendoza, [address] [place] [address], [facility]. tel:[phone] [place] [address], [address] [place] [address] [address], [place], [place], [address], tel:[phone] [place] [address] No Information 2- 0 Krishnasamy Erick. [address] [place] [address], [facility], [place]. tel:[phone] Referring Provider: Baltazar Mendoza, [address] [place] [address], [facility]. tel:[phone] [place] [address], [address] [place] [address] [address], [place], [place], [address], tel:[phone] [place] [address] No Information 4- 0 Krishnasamy Erick. [address] [place] [address], [facility], [place]. tel:[phone] Referring Provider: Baltazar Mendoza, [address] [place] [address], [facility]. tel:[phone] [place] [address], [address] [place] [address] [address], [place], [address], tel:[phone] [place] [address] No Information 6- 0 Krishnasamy Erick. [address] [place] [address], [facility], [place]. tel:[phone] Referring Provider: Baltazar Mendoza, [address] [place] [address], [facility]. tel:[phone] [facility], [address] [place] [address] [address], [place], [place], [address], tel:[phone] [place] [address] No Information - 0 Krishnasamy Erick. [address], [facility], [place]. tel:[phone] Referring Provider: Baltazar Mendoza, [address] [place] [address], [facility]. tel:[phone] [facility], [address] [place] [address] [address], [place], [address], tel:[phone] [place] [address] No Information 0 Krishnasamy Erick. [address] [place] [address], [facility], [place]. tel:[phone] Referring Provider: Baltazar Mendoza, [address] [place] [address], [facility]. tel:[phone] [facility], [address] [place] [address] [address], [place], [place], [address], [place] tel:[phone] [place] [address] No Information 0 Krishnasamy Erick. [facility] [address], [facility], [place]. tel:[phone] Referring Provider: Baltazar Mendoza, [address] [place] [address], [facility]. tel:[phone] [facility], [address] [place] [address] [address], [place], [address], [place] tel:[phone] [place] [address] No Information 0 Krishnasamy Erick. [address] [place], [facility], . tel:[phone] Referring Provider: Baltazar Mendoza, [address], [place], [facility]. tel:[phone] [facility], [address] [facility] [address], [place], [place], [address], tel:[phone] [facility] No Information May-0 9-200 8 Camacho OD Baltazar. [address] [facility] , [address], [place], [facility], . tel:[phone] [facility], [address] [facility], [place], [place], [address], tel:[phone] [facility] No Information Mar-2 0-200 7 Camacho OD Baltazar. [facility] , [address], [place], [facility], . tel:[phone] Family History Family Member Type Diagnosis Age At Onset No Information Payers Payer name Insurance type Covered constitution party ID Authoriza tion(s) Medicare [facility] [id number] BCBS [place] Commercial BL [id number] Social History Type Description Quantity Date Captured Comments Sex Female Smoking Status No Information Chief Complaint And Reason For Visit No Information Reason For Referral Reason For Referral No Information History Of Present Illness Encounter Date Complaint History Of Prese nt Illness No Information Functional Status Date Functional Assessmen t No Information Instructions Date Instruction Additional Infor mation No Information Assessments Type Assessment Date No Information Patient Care Teams Name Effective Dates (start - stop) Status Members No Information
--- OUTSIDE RECORDS SUMMARY | 2010-02-08 07:30 | XMS_ITS | Continuity of Care Document ---
Author Organization [facility] Address [address] [place] [address] utive [facility] 150 [place] [address] Phone Care Team Providers Care Group Burner Machine Name Role Phone Twin Vickers Unavailable Unavailable [...] Copied on Encounter Office/outpat ient Visit, Est [facility], [address] [place] [address], [place], [place], [address], [place] tel:[phone] [facility] No Information 0 [place]. [address] [place], [place] [address]ate [place] , [address], [place], [address], [place]. tel:[phone] Referring Provider: Erick Barriga, [address] [facility] [address], [place], [address]. tel:[phone] Office/outpat ient Visit, Est [facility], [address] [place] [address] [address], [place], [place], [address], tel:[phone] [place] [address] No Information 6- 0 Krishnasamy Erick. [address] [place] [address], [facility], . tel:[phone] Referring Provider: Baltazar Mendoza, [address] [place] [address], [facility]. tel:[phone] [place] [address], [address] [place] [address] [address], [place], [place], [address], tel:[phone] [place] [address] No Information 2- 0 Krishnasamy Erick. [address] [place] [address], [facility], [place]. tel:[phone] Referring Provider: Baltazar Mendoza, [address] [place] [address], [facility]. tel:[phone] [place] [address], [address] [place] [address] [address], [place], [place], [address], tel:[phone] [place] [address] No Information 4- 0 Krishnasamy Erick. [address] [place] [address], [facility], [place]. tel:[phone] Referring Provider: Baltazar Mendoza, [address] [place] [address], [facility]. tel:[phone] [place] [address], [address] [place] [address] [address], [place], [address], tel:[phone] [place] [address] No Information 6- 0 Krishnasamy Erick. [address] [place] [address], [facility], [place]. tel:[phone] Referring Provider: Baltazar Mendoza, [address] [place] [address], [facility]. tel:[phone] [facility], [address] [place] [address] [address], [place], [place], [address], tel:[phone] [place] [address] No Information - 0 Krishnasamy Erick. [address], [facility], [place]. tel:[phone] Referring Provider: Baltazar Mendoza, [address] [place] [address], [facility]. tel:[phone] [facility], [address] [place] [address] [address], [place], [address], tel:[phone] [place] [address] No Information 0 Krishnasamy Erick. [address] [place] [address], [facility], [place]. tel:[phone] Referring Provider: Baltazar Mendoza, [address] [place] [address], [facility]. tel:[phone] [facility], [address] [place] [address] [address], [place], [place], [address], [place] tel:[phone] [place] [address] No Information 0 Krishnasamy Erick. [facility] [address], [facility], [place]. tel:[phone] Referring Provider: Baltazar Mendoza, [address] [place] [address], [facility]. tel:[phone] [facility], [address] [place] [address] [address], [place], [address], [place] tel:[phone] [place] [address] No Information 0 Krishnasamy Erick. [address] [place], [facility], . tel:[phone] Referring Provider: Baltazar Mendoza, [address], [place], [place], [facility]. tel:[phone] [facility], [address] [facility], [place] [address], [place], [place], [address], tel:[phone] [facility] No Information May-0 9-200 8 Camacho OD Baltazar. 2421 [facility] , [address], [place], [facility], . tel:[phone] [facility], [address] [facility] [address], [place], [place], [address], tel:[phone] [facility] No Information Mar-2 0-200 7 Camacho OD Baltazar. [facility] , [address], [place], [facility], . tel:[phone] Family History Family Member Type Diagnosis Age At Onset No Information Payers Payer name Insurance type Covered republican ID Authoriza tion(s) Medicare [facility] [id number] BC[place] Commercial BL [id number] Social History Type Description Quantity Date Captured [...]
--- OUTSIDE RECORDS SUMMARY | 2010-02-08 07:30 | XMS_ITS | Continuity of Care Document ---
Author Organization [facility] Address [address] [place] [address] utive [facility] 150 [place] [address] Phone Care Team Providers Care Distribution Operations Manager Name Role Phone Twin Vickers Unavailable Unavailable [...] Copied on Encounter Office/outpat ient Visit, Est [facility], [address] [place] [address], [place], [place], [address], [place] tel:[phone] [facility] No Information 0 [place]. [address] [place], [place] [address]ate [place] , [address], [place], [address], [place]. tel:[phone] Referring Provider: Erick Barriga, [address] [facility] [address], [place], [address]. tel:[phone] Office/outpat ient Visit, Est [facility], [address] [place] [address] [address], [place], [place], [address], tel:[phone] [place] [address] No Information 6- 0 Krishnasamy Erick. [address] [place] [address], [facility], . tel:[phone] Referring Provider: Baltazar Mendoza, [address] [place] [address], [facility]. tel:[phone] [place] [address], [address] [place] [address] [address], [place], [place], [address], tel:[phone] [place] [address] No Information 2- 0 Krishnasamy Erick. [address] [place] [address], [facility], [place]. tel:[phone] Referring Provider: Baltazar Mendoza, [address] [place] [address], [facility]. tel:[phone] [place] [address], [address] [place] [address] [address], [place], [place], [address], tel:[phone] [place] [address] No Information 4- 0 Krishnasamy Erick. [address] [place] [address], [facility], [place]. tel:[phone] Referring Provider: Baltazar Mendoza, [address] [place] [address], [facility]. tel:[phone] [place] [address], [address] [place] [address] [address], [place], [address], tel:[phone] [place] [address] No Information 6- 0 Krishnasamy Erick. [address] [place] [address], [facility], [place]. tel:[phone] Referring Provider: Baltazar Mendoza, [address] [place] [address], [facility]. tel:[phone] [facility], [address] [place] [address] [address], [place], [place], [address], tel:[phone] [place] [address] No Information - 0 Krishnasamy Erick. [address], [facility], [place]. tel:[phone] Referring Provider: Baltazar Mendoza, [address] [place] [address], [facility]. tel:[phone] [facility], [address] [place] [address] [address], [place], [address], tel:[phone] [place] [address] No Information 0 Krishnasamy Erick. [address] [place] [address], [facility], [place]. tel:[phone] Referring Provider: Baltazar Mendoza, [address] [place] [address], [facility]. tel:[phone] [facility], [address] [place] [address] [address], [place], [place], [address], [place] tel:[phone] [place] [address] No Information 0 Krishnasamy Erick. [facility] [address], [facility], [place]. tel:[phone] Referring Provider: Baltazar Mendoza, [address] [place] [address], [facility]. tel:[phone] [facility], [address] [place] [address] [address], [place], [address], [place] tel:[phone] [place] [address] No Information 0 Krishnasamy Erick. [address] [place], [facility], . tel:[phone] Referring Provider: Baltazar Mendoza, [address] [facility] [address], [place], [facility]. tel:[phone] [facility], [address] [facility] [address], [place], [place], [address], tel:[phone] [facility] No Information May-0 9-200 8 Camacho OD Baltazar. [address] [facility] , [address], [place], [facility], . tel:[phone] [facility], [address] [facility] [address], [place], [place], [address], tel:[phone] [facility] No Information Mar-2 0-200 7 Camacho OD Baltazar. [facility] , [address], [place], [facility], . tel:[phone] Family History Family Member Type Diagnosis Age At Onset No Information Payers Payer name Insurance type Covered constitution party ID Authoriza tion(s) Medicare [facility] [id number] [place] Commercial BL [id number] Social History Type Description Quantity Date Captured [...]
--- OUTSIDE RECORDS SUMMARY | 2010-02-08 07:30 | XMS_ITS | Continuity of Care Document ---
Author Organization [facility] Address [address] [place] [address] utive [facility] 150 [place] [address] Phone Care Team Providers Care Steam Presser Name Role Phone Twin Vickers Unavailable Unavailable [...] Copied on Encounter Office/outpat ient Visit, Est [facility], [address], [place], [place], [address], [place] tel:[phone] [facility] No Information 0 [place]. [address] [place], [place] [address]ate [place] , [address], [place], [address], [place]. tel:[phone] Referring Provider: Erick Barriga, [address] [facility] [address], [place], [address]. tel:[phone] Office/outpat ient Visit, Est [facility], [address] [place] [address] [address], [place], [place], [address], tel:[phone] [place] [address] No Information 6- 0 Krishnasamy Erick. [address] [place] [address], [facility], . tel:[phone] Referring Provider: Baltazar Mendoza, [address] [place] [address], [facility]. tel:[phone] [place] [address], [address] [place] [address] [address], [place], [place], [address], tel:[phone] [place] [address] No Information 2- 0 Krishnasamy Erick. [address] [place] [address], [facility], [place]. tel:[phone] Referring Provider: Baltazar Mendoza, [address] [place] [address], [facility]. tel:[phone] [place] [address], [address] [place] [address] [address], [place], [place], [address], tel:[phone] [place] [address] No Information 4- 0 Krishnasamy Erick. [address] [place] [address], [facility], [place]. tel:[phone] Referring Provider: Baltazar Mendoza, [address] [place] [address], [facility]. tel:[phone] [place] [address], [address] [place] [address] [address], [place], [address], tel:[phone] [place] [address] No Information 6- 0 Krishnasamy Erick. [address] [place] [address], [facility], [place]. tel:[phone] Referring Provider: Baltazar Mendoza, [address] [place] [address], [facility]. tel:[phone] [facility], [address] [place] [address] [address], [place], [place], [address], tel:[phone] [place] [address] No Information - 0 Krishnasamy Erick. [address], [facility], [place]. tel:[phone] Referring Provider: Baltazar Mendoza, [address] [place] [address], [facility]. tel:[phone] [facility], [address] [place] [address] [address], [place], [address], tel:[phone] [place] [address] No Information 0 Krishnasamy Erick. [address] [place] [address], [facility], [place]. tel:[phone] Referring Provider: Baltazar Mendoza, [address] [place] [address], [facility]. tel:[phone] [facility], [address] [place] [address] [address], [place], [place], [address], [place] tel:[phone] [place] [address] No Information 0 Krishnasamy Erick. [facility] [address], [facility], [place]. tel:[phone] Referring Provider: Baltazar Mendoza, [address] [place] [address], [facility]. tel:[phone] [facility], [address] [place] [address] [address], [place], [address], [place] tel:[phone] [place] [address] No Information 0 Krishnasamy Erick. [address] [place], [facility], . tel:[phone] Referring Provider: Baltazar Mendoza, [address] [facility] [address], [place], [facility]. tel:[phone] [facility], [address] [facility] [address], [place], [place], [address], tel:[phone] [facility] No Information May-0 9-200 8 Camacho OD Baltazar. 2421 [facility] , [address], [place], [facility], . tel:[phone] [facility], [address] [facility], [place], [place], [address], tel:[phone] [facility] No Information Mar-2 0-200 7 Camacho OD Baltazar. [facility] , [address], [place], [facility], . tel:[phone] Family History Family Member Type Diagnosis Age At Onset No Information Payers Payer name Insurance type Covered libertarian ID Authoriza tion(s) Medicare [facility] [id number] BCBS ID Commercial BL [id number] Social History Type Description Quantity Date Captured [...]
--- OUTSIDE RECORDS SUMMARY | 2010-02-08 07:30 | XMS_ITS | Continuity of Care Document ---
Author Organization [facility] Address [address] [place] [address] utive [facility] 150 [place] [address] Phone Care Team Providers Care Post Closer Name Role Phone Twin Vickers Unavailable Unavailable [...] Copied on Encounter Office/outpat ient Visit, Est [facility], [address], [place], [place], [id number], [place] tel:[phone] [facility] No Information 0 [place]. [address] [place], [place] [address]ate [place] , [address], [place], [address], [place]. tel:[phone] Referring Provider: Erick Barriga, [address] [facility] [address], [place], [address]. tel:[phone] Office/outpat ient Visit, Est [facility], [address] [place] [address] [address], [place], [place], [address], tel:[phone] [place] [address] No Information 6- 0 Krishnasamy Erick. [address] [place] [address], [facility], . tel:[phone] Referring Provider: Baltazar Mendoza, [address] [place] [address], [facility]. tel:[phone] [place] [address], [address] [place] [address] [address], [place], [place], [address], tel:[phone] [place] [address] No Information 2- 0 Krishnasamy Erick. [address] [place] [address], [facility], [place]. tel:[phone] Referring Provider: Baltazar Mendoza, [address] [place] [address], [facility]. tel:[phone] [place] [address], [address] [place] [address] [address], [place], [place], [address], tel:[phone] [place] [address] No Information 4- 0 Krishnasamy Erick. [address] [place] [address], [facility], [place]. tel:[phone] Referring Provider: Baltazar Mendoza, [address] [place] [address], [facility]. tel:[phone] [place] [address], [address] [place] [address] [address], [place], [address], tel:[phone] [place] [address] No Information 6- 0 Krishnasamy Erick. [address] [place] [address], [facility], [place]. tel:[phone] Referring Provider: Baltazar Mendoza, [address] [place] [address], [facility]. tel:[phone] [facility], [address] [place] [address] [address], [place], [place], [address], tel:[phone] [place] [address] No Information - 0 Krishnasamy Erick. [address], [facility], [place]. tel:[phone] Referring Provider: Baltazar Mendoza, [address] [place] [address], [facility]. tel:[phone] [facility], [address] [place] [address] [address], [place], [address], tel:[phone] [place] [address] No Information 0 Krishnasamy Erick. [address] [place] [address], [facility], [place]. tel:[phone] Referring Provider: Baltazar Mendoza, [address] [place] [address], [facility]. tel:[phone] [facility], [address] [place] [address] [address], [place], [place], [address], [place] tel:[phone] [place] [address] No Information 0 Krishnasamy Erick. [facility] [address], [facility], [place]. tel:[phone] Referring Provider: Baltazar Mendoza, [address] [place] [address], [facility]. tel:[phone] [facility], [address] [place] [address] [address], [place], [address], [place] tel:[phone] [place] [address] No Information 0 Krishnasamy Erick. [address] [place], [place], [facility], . tel:[phone] Referring Provider: Baltazar Mendoza, [address], [place], [facility]. tel:[phone] [facility], [address] [facility] [place] [address], [place], [place], [address], tel:[phone] [facility] No Information May-0 9-200 8 Camacho OD Baltazar. 2421 [facility] , [address], [place], [facility], . tel:[phone] [facility], [address] [facility], [place], [place], [address], tel:[phone] [facility] No Information Mar-2 0-200 7 Camacho OD Baltazar. [facility] , [address], [place], [facility], . tel:[phone] Family History Family Member Type Diagnosis Age At Onset No Information Payers Payer name Insurance type Covered alliance party ID Authoriza tion(s) Medicare [facility] [id number] BCBS [place] Commercial BL [id number] Social History Type Description Quantity Date Captured [...]
--- OUTSIDE RECORDS SUMMARY | 2010-02-08 07:30 | XMS_ITS | Continuity of Care Document ---
Author Organization [facility] Address [address] [place] [address] utive [facility] 150 [place] [address] Phone Care Team Providers Care Leak Operator [place]affin [place] Name Role Phone Twin Vickers Unavailable Unavailable [...] Copied on Encounter Office/outpat ient Visit, Est [facility], [address], [place], [place], [address], [place] tel:[phone] [facility] No Information 0 [place]. [address] [place], [place] [address]ate [place] , [address], [place], [address], [place]. tel:[phone] Referring Provider: Erick Barriga, [address] [facility] [address], [place], [address]. tel:[phone] Office/outpat ient Visit, Est [facility], [address] [place] [address] [address], [place], [place], [address], tel:[phone] [place] [address] No Information 6- 0 Krishnasamy Erick. [address] [place] [address], [facility], . tel:[phone] Referring Provider: Baltazar Mendoza, [address] [place] [address], [facility]. tel:[phone] [place] [address], [address] [place] [address] [address], [place], [place], [address], tel:[phone] [place] [address] No Information 2- 0 Krishnasamy Erick. [address] [place] [address], [facility], [place]. tel:[phone] Referring Provider: Baltazar Mendoza, [address] [place] [address], [facility]. tel:[phone] [place] [address], [address] [place] [address] [address], [place], [place], [address], tel:[phone] [place] [address] No Information 4- 0 Krishnasamy Erick. [address] [place] [address], [facility], [place]. tel:[phone] Referring Provider: Baltazar Mendoza, [address] [place] [address], [facility]. tel:[phone] [place] [address], [address] [place] [address] [address], [place], [address], tel:[phone] [place] [address] No Information 6- 0 Krishnasamy Erick. [address] [place] [address], [facility], [place]. tel:[phone] Referring Provider: Baltazar Mendoza, [address] [place] [address], [facility]. tel:[phone] [facility], [address] [place] [address] [address], [place], [place], [address], tel:[phone] [place] [address] No Information - 0 Krishnasamy Erick. [address], [facility], [place]. tel:[phone] Referring Provider: Baltazar Mendoza, [address] [place] [address], [facility]. tel:[phone] [facility], [address] [place] [address] [address], [place], [address], tel:[phone] [place] [address] No Information 0 Krishnasamy Erick. [address] [place] [address], [facility], [place]. tel:[phone] Referring Provider: Baltazar Mendoza, [address] [place] [address], [facility]. tel:[phone] [facility], [address] [place] [address] [address], [place], [place], [address], [place] tel:[phone] [place] [address] No Information 0 Krishnasamy Erick. [facility] [address], [facility], [place]. tel:[phone] Referring Provider: Baltazar Mendoza, [address] [place] [address], [facility]. tel:[phone] [facility], [address] [place] [address] [address], [place], [address], [place] tel:[phone] [place] [address] No Information 0 Krishnasamy Erick. [address] [place], [place], [facility], . tel:[phone] Referring Provider: Baltazar Mendoza, [address] [facility] [address], [place], [facility]. tel:[phone] [facility], [address] [facility] [address], [place], [place], [address], tel:[phone] [facility] No Information May-0 9-200 8 Camacho OD Baltazar. 2421 [facility] , [address], [place], [facility], . tel:[phone] [facility], [address] [facility], [place], [place], [address], tel:[phone] [facility] No Information Mar-2 0-200 7 Camacho OD Baltazar. [facility] , [address], [place], [facility], . tel:[phone] Family History Family Member Type Diagnosis Age At Onset No Information Payers Payer name Insurance type Covered constitution party ID Authoriza tion(s) Medicare [facility] [id number] BCBS [place] Commercial BL [id number] Social History Type Description Quantity Date Captured [...]
--- OUTSIDE RECORDS SUMMARY | 2010-02-08 07:30 | XMS_ITS | Continuity of Care Document ---
Author Organization [facility] Address [address] [place] [address] utive [facility] 150 [place] [address] Phone Care Team Providers Care Tree Feller Name Role Phone Twin Vickers Unavailable Unavailable [...] Copied on Encounter Office/outpat ient Visit, Est [facility], [address] [place] [address], [place], [place], [address], [place] tel:[phone] [facility] No Information 0 [place]. [address] [place], [place] [address]ate [place] , [address], [place], [address], [place]. tel:[phone] Referring Provider: Erick Barriga, [address] [facility] [address], [place], [address]. tel:[phone] Office/outpat ient Visit, Est [facility], [address] [place] [address] [address], [place], [place], [address], tel:[phone] [place] [address] No Information 6- 0 Krishnasamy Erick. [address] [place] [address], [facility], . tel:[phone] Referring Provider: Baltazar Mendoza, [address] [place] [address], [facility]. tel:[phone] [place] [address], [address] [place] [address] [address], [place], [place], [address], tel:[phone] [place] [address] No Information 2- 0 Krishnasamy Erick. [address] [place] [address], [facility], [place]. tel:[phone] Referring Provider: Baltazar Mendoza, [address] [place] [address], [facility]. tel:[phone] [place] [address], [address] [place] [address] [address], [place], [place], [address], tel:[phone] [place] [address] No Information 4- 0 Krishnasamy Erick. [address] [place] [address], [facility], [place]. tel:[phone] Referring Provider: Baltazar Mendoza, [address] [place] [address], [facility]. tel:[phone] [place] [address], [address] [place] [address] [address], [place], [address], tel:[phone] [place] [address] No Information 6- 0 Krishnasamy Erick. [address] [place] [address], [facility], [place]. tel:[phone] Referring Provider: Baltazar Mendoza, [address] [place] [address], [facility]. tel:[phone] [facility], [address] [place] [address] [address], [place], [place], [address], tel:[phone] [place] [address] No Information - 0 Krishnasamy Erick. [address], [facility], [place]. tel:[phone] Referring Provider: Baltazar Mendoza, [address] [place] [address], [facility]. tel:[phone] [facility], [address] [place] [address] Dr[address], [place], [address], tel:[phone] [place] [address] No Information 0 Krishnasamy Erick. [address] [place] [address], [facility], [place]. tel:[phone] Referring Provider: Baltazar Mendoza, [address] [place] [address], [facility]. tel:[phone] [facility], [address] [place] [address] [address], [place], [place], [address], [place] tel:[phone] [place] [address] No Information 0 Krishnasamy Erick. [facility] [address], [facility], [place]. tel:[phone] Referring Provider: Baltazar Mendoza, [address] [place] [address], [facility]. tel:[phone] [facility], [address] [place] [address] [address], [place], [address], [place] tel:[phone] [place] [address] No Information 0 Krishnasamy Erick. [address] [place], [facility], . tel:[phone] Referring Provider: Baltazar Mendoza, [address] [facility] [address], [place], [facility]. tel:[phone] [facility], [address] [facility] [address], [place], [place], [address], tel:[phone] [facility] No Information May-0 9-200 8 Camacho OD Baltazar. 2421 [facility] , [address], [place], [facility], . tel:[phone] [facility], [address] [facility] [facility] [address], [place], [place], [address], tel:[phone] [facility] No Information Mar-2 0-200 7 Camacho OD Baltazar. [facility] , [address], [place], [facility], . tel:[phone] Family History Family Member Type Diagnosis Age At Onset No Information Payers Payer name Insurance type Covered green party ID Authoriza tion(s) Medicare [facility] [id number] BCBS [place] Commercial BL [id number] Social History Type Description Quantity Date Captured [...]
--- OUTSIDE RECORDS SUMMARY | 2010-02-08 07:30 | XMS_ITS | Continuity of Care Document ---
Author Organization [facility] Address [address] [place] [address] utive [facility] 150 [place] [address] Phone Care Team Providers Care Pantograph Ii Engraver Name Role Phone Twin Vickers Unavailable Unavailable [...] Copied on Encounter Office/outpat ient Visit, Est [facility], [address], [place], [place], [address], [place] tel:[phone] [facility] No Information 0 [place]. [address] [place], [place] [address]ate [place] , [address], [place], [address], [place]. tel:[phone] Referring Provider: Erick Barriga, 2421 [facility] [address], [place], [address]. tel:[phone] Office/outpat ient Visit, Est [facility], [address] [place] [address] [address], [place], [place], [address], tel:[phone] [place] [address] No Information 6- 0 Krishnasamy Erick. [address] [place] [address], [facility], . tel:[phone] Referring Provider: Baltazar Mendoza, [address] [place] [address], [facility]. tel:[phone] [place] [address], [address] [place] [address] [address], [place], [place], [address], tel:[phone] [place] [address] No Information 2- 0 Krishnasamy Erick. [address] [place] [address], [facility], [place]. tel:[phone] Referring Provider: Baltazar Mendoza, [address] [place] [address], [facility]. tel:[phone] [place] [address], [address] [place] [address] [address], [place], [place], [address], tel:[phone] [place] [address] No Information 4- 0 Krishnasamy Erick. [address] [place] [address], [facility], [place]. tel:[phone] Referring Provider: Baltazar Mendoza, [address] [place] [address], [facility]. tel:[phone] [place] [address], [address] [place] [address] [address], [place], [address], tel:[phone] [place] [address] No Information 6- 0 Krishnasamy Erick. [address] [place] [address], [facility], [place]. tel:[phone] Referring Provider: Baltazar Mendoza, [address] [place] [address], [facility]. tel:[phone] [facility], [address] [place] [address] [address], [place], [place], [address], tel:[phone] [place] [address] No Information - 0 Krishnasamy Erick. [address], [facility], [place]. tel:[phone] Referring Provider: Baltazar Mendoza, [address] [place] [address], [facility]. tel:[phone] [facility], [address] [place] [address] [address], [place], [address], tel:[phone] [place] [address] No Information 0 Krishnasamy Erick. [address] [place] [address], [facility], [place]. tel:[phone] Referring Provider: Baltazar Mendoza, [address] [place] [address], [facility]. tel:[phone] [facility], [address] [place] [address] [address], [place], [place], [address], [place] tel:[phone] [place] [address] No Information 0 Krishnasamy Erick. [facility] [address], [facility], [place]. tel:[phone] Referring Provider: Baltazar Mendoza, [address] [place] [address], [facility]. tel:[phone] [facility] [place], [address] [place] [address] [address], [place], [address], [place] tel:[phone] [place] [address] No Information 0 Krishnasamy Erick. [address] [place], [facility], . tel:[phone] Referring Provider: Baltazar Mendoza, [address], [place], [facility]. tel:[phone] [facility] [place], [address] [facility] [address], [place], [place], [address], tel:[phone] [facility] No Information May-0 9-200 8 Camacoh OD Baltazar. [address]21 [facility] [place] , [address], [place], [facility], . tel:[phone] [facility] [place], [address] [facility], [place], [place], [address], tel:[phone] [facility] No Information Mar-2 0-200 7 Camacho OD Baltazar. [facility] [place] , [address], [place], [facility], . tel:[phone] Family History Family Member Type Diagnosis Age At Onset No Information Payers Payer name Insurance type Covered democrat ID Authoriza tion(s) Medicare [facility] [id number] BC[place] Commercial BL [id number] Social History Type Description Quantity Date Captured [...]
--- OUTSIDE RECORDS SUMMARY | 2010-02-08 07:30 | XMS_ITS | Continuity of Care Document ---
Author Organization [facility] Address [address] [place] [address] utive [facility] [address] [place] [address] Phone Care Team Providers Care Print Line Operator Name Role Phone Twin Vickers Unavailable Unavailable [...] Copied on Encounter Office/outpat ient Visit, Est [facility], [address], [employer] [place], [id number], [place] tel:[phone] [facility] No Information 0 [place]. [address] [place], [place] [address]ate [place] , [address], [place], [address], [place]. tel:[phone] Referring Provider: Erick Barriga, [address] [facility] [address], [place], [address]. tel:[phone] Office/outpat ient Visit, Est [facility], [id number] [place] [address] [address], [employer] [place], [id number], tel:[phone] [place] [address] No Information 6- 0 Krishnasamy Erick. [address] [place] [address], [facility], . tel:[phone] Referring Provider: Baltazar Mendoza, [address] [place] [address], [facility]. tel:[phone] [place] [address], [address] [place] [address] [address], [employer] [place], [id number], tel:[phone] [place] [address] No Information 2- 0 Krishnasamy Erick. [address] [place] [address], [facility], [place]. tel:[phone] Referring Provider: Baltazar Mendoza, [address] [place] [address], [facility]. tel:[phone] [place] [address], [address] [place] [address] [address], [employer] [place], [id number], tel:[phone] [place] [address] No Information 4- 0 Krishnasamy Erick. [address] [place] [address], [facility], [place]. tel:[phone] Referring Provider: Baltazar Mendoza, [address] [place] [address], [facility]. tel:[phone] [place] [address], [address] [place] [address] [address], [place], [id number], tel:[phone] [place] [address] No Information 6- 0 Krishnasamy Erick. [address] [place] [address], [facility], [place]. tel:[phone] Referring Provider: Baltazar Mendoza, [address] [place] [address], [facility]. tel:[phone] [facility], [address] [place] [address] [address], [employer] [place], [id number], tel:[phone] [place] [address] No Information - 0 Krishnasamy Erick. [address], [facility], [place]. tel:[phone] Referring Provider: Baltazar Mendoza, [address] [place] [address], [facility]. tel:[phone] [facility], [address] [place] [address] [address], [place], [id number], tel:[phone] [place] [address] No Information 0 Krishnasamy Erick. [address] [place] [address], [facility], [place]. tel:[phone] Referring Provider: Baltazar Mendoza, [address] [place] [address], [facility]. tel:[phone] [facility], [id number] [place] [address] [address], [employer] [place], [id number], [place] tel:[phone] [place] [address] No Information 0 Krishnasamy Erick. [facility] [address], [facility], [place]. tel:[phone] Referring Provider: Baltazar Mendoza, [address] [place] [address], [facility]. tel:[phone] [facility], [address] [place] [address] [address], [place], [id number], [place] tel:[phone] [place] [address] No Information 0 Krishnasamy Erick. [address] [place], [place], [facility], . tel:[phone] Referring Provider: Baltazar Mendoza, [address], [place], [facility]. tel:[phone] [facility], [address] [facility] [address], [employer] [place], [id number], tel:[phone] [facility] No Information May-0 9-200 8 Camacho OD Baltazar. [address] [facility] , [address], [place], [facility], . tel:[phone] [facility], [address] [facility] [address], [employer] [place], [id number], tel:[phone] [facility] No Information Mar-2 0-200 7 Camacho OD Baltazar. [facility] , [address], [place], [facility], . tel:[phone] Family History Family Member Type Diagnosis Age At Onset No Information Payers Payer name Insurance type Covered alliance party ID Authoriza tion(s) Medicare [facility] [id number] BCBS [place] Commercial [place] [id number] Social History Type Description Quantity Date Captured [...]
--- NOTE | ~2025-04-21 | CT_ITS ---
EXAM/PROCEDURE: CT chest abdomen pelvis wo con HISTORY: SOB and ab pain COMPARISON: November 08, 2023 TECHNIQUE: Noncontrast CT of the chest abdomen and pelvis FINDINGS: CHEST CT: The lungs are clear. Heart size normal with no significant pericardial effusion or bulky lymphadenopathy. 4.5 cm thoracic aortic aneurysm not grossly changed given variation in measurement. The aorta tapers to normal size in the distal arch and descending portion. Central large airways are patent. ABDOMEN AND PELVIS CT: The bowel gas pattern is nonobstructive with no free air free fluid or pneumatosis seen. Cholecystectomy and hysterectomy surgical changes. Extensive atherosclerotic calcification of nonaneurysmal abdominal aorta. No hydroureteronephrosis or gross CT evidence of acute pancreatitis. Spleen adrenal glands stomach and liver appear stable. Mild diverticular disease with no gross acute diverticulitis. The large bowel is unopacified and nondistended but no obvious acute process seen. Small omentum containing only umbilical hernia. No grossly inflamed appendix. No bulky mesenteric or retroperitoneal lymphadenopathy or masses. Inferior vena cava is relatively flattened which could be associated with hypovolemia. IMPRESSION: 1. Directed noncontrast CT of the abdomen and pelvis demonstrating no gross acute intrathoracic or abdominal/pelvic process to explain patient's symptoms. Note the IVC appears somewhat flattened which could be associated with hypovolemia. 2. Several chronic appearing findings as above. Reviewed, dictated and finalized at location A. [employer] SYSTEMS AUDITOR IMPRESSION: 1. Directed noncontrast CT of the abdomen and pelvis demonstrating no gross acu te intrathoracic or abdominal/pelvic process to explain patient's symptoms. Not e the IVC appears somewhat flattened which could be associated with hypovolemia . 2. Several chronic appearing findings as above.
--- NOTE | ~2025-04-21 | XR_ITS ---
EXAMINATION: XR chest 2V DATE: 04/21/2025 14:40 INDICATION: Shortness of breath. TECHNIQUE: Frontal and lateral views of the chest were obtained. COMPARISON: None available FINDINGS: Borderline size heart. Severe atherosclerotic aorta. Lungs are emphysematous without acute findings. IMPRESSION: 1. No acute pulmonary findings. Emphysematous lungs. Severe atherosclerotic aorta. Reviewed, dictated and finalized at location T. 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 No acute pulmonary findings. Emphysematous lungs. Severe atherosclerotic aor ta.
[2025-04-21 11:01] VITALS: BP 119/96; PULSE 79; RESP 17; TEMP 36.6; O2SAT 95
--- NOTE | 2025-04-21 13:25 | ED.GENADULT ---
HPI - General Adult General Chief complaint: Abdominal Pain <MOLLY Winkler - Last Filed: 04/21/25 13:39> Stated complaint: abdominal pain <MOLLY Winkler - Last Filed: 04/21/25 13:39> Time Seen by Provider: 04/21/25 14:18 <MOLLY Winkler - Last Filed: 04/21/25 13:39> Focused HPI: 89 year old female presenting by EMS with right side abdominal pain for the last two weeks and shortness of breath worse the last few weeks. Hx of IBS and COPD. Reports significant pain after every time she eats. Denies any symptoms presently after receiving anti-emetic and oxygen in the ambulance. Denies nausea/vomiting/diarrhea, fevers/chills. GENERAL: Well-appearing, well-nourished, and in no acute distress. HEAD: Normocephalic, atraumatic. CHEST: Wheezing in all lung gross. ?No respiratory distress. ABDOMEN: RLQ TTP HEART: Regular rate and rhythm.? NEURO: ?Alert and oriented x3. Patient screened in triage and initial orders placed.? ?Additional care and disposition to be based upon?diagnostic testing and treatment. <MOLLY Winkler - Last Filed: 04/21/25 13:39> History of Present Illness HPI narrative: I agree with the above HPI <Bob Trotter MD - Last Filed: 04/21/25 21:20> Related Data Home medications: Home Medications ?Medication ?Instructions ?Recorded ?Confirmed ?Last Taken ?Type gabapentin 300 mg capsule 600 mg PO DAILY 04/02/19 08/14/23 07/12/19 History gabapentin 300 mg capsule 900 mg PO HS 04/02/19 08/14/23 07/12/19 History levothyroxine 100 mcg tablet 100 mcg PO DAILY 04/02/19 08/14/23 07/12/19 History tiotropium bromide 18 mcg capsule 18 mcg inhalation DAILY 04/02/19 08/14/23 07/12/19 History with inhalation device (Spiriva with HandiHaler) carvedilol 3.125 mg tablet 3.125 mg PO BID 07/06/19 08/14/23 07/13/19 06:30 History <MOLLY Winkler - Last Filed: 04/21/25 13:39> Allergies/adverse reactions: Allergies Allergy/AdvReac Type Severity Reaction Status Date / Time Iodinated Contrast Media Allergy Severe severe Verified 12/30/23 07:46 itching Penicillins Allergy Mild Rash Verified 12/30/23 07:46 <MOLLY Winkler - Last Filed: 04/21/25 13:39> Review of Systems Review of Systems: All systems reviewed & are unremarkable except as noted in HPI and below <Bob Trotter MD - Last Filed: 04/21/25 21:20> [facility] Past Medical History Medical History: Medical History (Updated 04/21/25 @ 17:13 by Bob Trotter MD) Tobacco abuse Anxiety Skin cancer Hypothyroidism Diabetes mellitus Gout Rheumatoid arthritis Ulcer GERD (gastroesophageal reflux disease) Pneumonia HLD (hyperlipidemia) Emphysema of lung DVT (deep venous thrombosis) Peripheral neuropathy Hypertension COPD (chronic obstructive pulmonary disease) NSTEMI (non-ST elevated myocardial infarction) <MOLLY Winkler - Last Filed: 04/21/25 13:39> Surgical History Surgical History: Surgical History History of total bilateral knee replacement H/O: hysterectomy History of cholecystectomy History of appendectomy H/O heart artery stent LAD drug-eluting stent <MOLLY Winkler - Last Filed: 04/21/25 13:39> Family History Family History: Family History Other Renal cancer CAD (coronary artery disease) Father Acute myocardial infarction Father Bladder cancer CAD (coronary artery disease) Mother CAD (coronary artery disease) Acute myocardial infarction <MOLLY Winkler - Last Filed: 04/21/25 13:39> Social History Social History: Social History Smoking packs per day: 1 Smoking cigarettes per day: 20.0 Years smoked: 50 Smoking pack-years: 50.00 Smoking status: Former smoker Tobacco type: cigarettes Second hand tobacco smoke exposure: Yes Smoking end date: 03/27/19 Additional smoking assessment comments: smoked off and on those 50 years Alcohol intake: never Substance use: never Gender identity (if verbalized by the patient): Female Spiritual care concerns: No Agree to blood products: Yes <MOLLY Winkler - Last Filed: 04/21/25 13:39> Exam Narrative: APPEARANCE: Well appearing, no pain, no distress, well-nourished. HEAD: normocephalic, atraumatic. EYES: PERRLA/EOMI, conjunctivae clear. NOSE: Normal no drainage EARS:TMS clear with good light reflex. THROAT: Pharynx clear, no exudate. NECK: Supple. No adenopathy, no masses. RESPIRATORY: Expiratory wheeze CARDIOVASCULAR: Regular rate and rhythm without murmurs rubs or gallops. ABDOMINAL: Soft, nontender, nondistended, normal bowel sounds MUSCULOSKELETAL: Moves all extremities. Strength/ROM intact, No edema, No calf tenderness. NEURO: Alert. Cranial nerves II through XII intact. Good gait. Good coordination SKIN: Warm, dry. Normal Color <Bob Trotter MD - Last Filed: 04/21/25 21:20> Course Vital Signs Vital signs: Vital Signs Temperature 97.9 F 04/21/25 11:01 Pulse Rate 79 04/21/25 11:01 Respiratory Rate 17 04/21/25 11:01 Blood Pressure 119/96 H 04/21/25 11:01 Pulse Oximetry 95 04/21/25 11:01 Oxygen Delivery Room Air 04/21/25 11:01 Temperature 97.9 F 04/21/25 11:01 Pulse Rate 70 04/21/25 16:20 Respiratory Rate 16 04/21/25 16:20 Blood Pressure 117/54 L 04/21/25 16:20 Pulse Oximetry 94 04/21/25 16:20 Oxygen Delivery Room Air 04/21/25 11:01 <MOLLY Winkler - Last Filed: 04/21/25 13:39> Vital Signs Temperature 97.9 F 04/21/25 11:01 Pulse Rate 79 04/21/25 11:01 Respiratory Rate 17 04/21/25 11:01 Blood Pressure 119/96 H 04/21/25 11:01 Pulse Oximetry 95 04/21/25 11:01 Oxygen Delivery Room Air 04/21/25 11:01 Temperature 97.9 F 04/21/25 11:01 Pulse Rate 70 04/21/25 16:20 Respiratory Rate 16 04/21/25 16:20 Blood Pressure 117/54 L 04/21/25 16:20 Pulse Oximetry 94 04/21/25 16:20 Oxygen Delivery Room Air 04/21/25 11:01 <Bob Trotter MD - Last Filed: 04/21/25 21:20> Medical Decision Making [facility] Narrative Medical decision making narrative: 81-year-old female presented emergency department for evaluation for epigastric abdominal pain. Patient reports he has had worsening gastritis/ulcer pain over the last few weeks. Patient does have history of COPD and does use a a albuterol inhaler at nighttime. Patient reports last night she had episode of worsened abdominal pain in this called worsening shortness of breath. Patient did call EMS this morning and she was placed on oxygen and states he did feel significantly improved. Patient was also treated with IV Zofran EN route. Upon arrival emergency department patient states she does feel improved patient denies any intense abdominal pain at this time but does report some generalized soreness. Patient is currently afebrile with no leukocytosis hemoglobin of 13.1. No acute abnormalities on her CMP. Patient was negative for influenza RSV and for COVID. Chest x-ray shows no acute cardiopulmonary abnormality. On exam patient does have significant expiratory wheeze but is not hypoxic. Patient was treated with nebulized albuterol, she was also treated with a GI cocktail, IV Protonix and CT scan was ordered due to the diffuse upper abdominal pain. On re-evaluation patient does feel improved. CT scan was negative for acute abnormality. Patient will be treated for a suspected COPD exacerbation. Patient was also encouraged to have close follow-up with GI. All questions concerns were addressed. <Bob Trotter MD - Last Filed: 04/21/25 21:20> Differential Diagnosis Differential Diagnosis: COPD, pneumonia, COVID, RSV, influenza, gastritis, colitis, diverticulitis <Bob Trotter MD - Last Filed: 04/21/25 21:20> Vital Signs Vital Signs: Vital Signs Temperature 97.9 F 04/21/25 11:01 Pulse Rate 79 04/21/25 11:01 Respiratory Rate 17 04/21/25 11:01 Blood Pressure 119/96 H 04/21/25 11:01 Pulse Oximetry 95 04/21/25 11:01 Oxygen Delivery Room Air 04/21/25 11:01 Temperature 97.9 F 04/21/25 11:01 Pulse Rate 70 04/21/25 16:20 Respiratory Rate 16 04/21/25 16:20 Blood Pressure 117/54 L 04/21/25 16:20 Pulse Oximetry 94 04/21/25 16:20 Oxygen Delivery Room Air 04/21/25 11:01 <MOLLY Winkler - Last Filed: 04/21/25 13:39> Vital Signs Temperature 97.9 F 04/21/25 11:01 Pulse Rate 79 04/21/25 11:01 Respiratory Rate 17 04/21/25 11:01 Blood Pressure 119/96 H 04/21/25 11:01 Pulse Oximetry 95 04/21/25 11:01 Oxygen Delivery Room Air 04/21/25 11:01 Temperature 97.9 F 04/21/25 11:01 Pulse Rate 70 04/21/25 16:20 Respiratory Rate 16 04/21/25 16:20 Blood Pressure 117/54 L 04/21/25 16:20 Pulse Oximetry 94 04/21/25 16:20 Oxygen Delivery Room Air 04/21/25 11:01 <Bob Trotter MD - Last Filed: 04/21/25 21:20> Lab Data Lab results reviewed: Yes I reviewed the patient's lab results. <Bob Trotter MD - Last Filed: 04/21/25 21:20> Result diagrams: 04/21/25 14:07 04/21/25 14:07 <MOLLY Winkler - Last Filed: 04/21/25 13:39> Labs: Lab Results 04/21/25 Range/Units 14:07 WBC 7.9 (4.5-10.0) K/mm3 RBC 4.47 (4.2-5.4) M/mm3 Hgb 13.1 (12.0-15.0) g/dL Hct 41.5 (37.0-47.0) % MCV 92.8 (80-100) fl MCH 29.3 (26-34) pg MCHC 31.6 L (32-36) g/dl RDW 14.2 (11.5-14.5) % Plt Count 202 (150-375) k/mm3 MPV 10.5 H (7.4-10.4) fl Immature Gran % (Auto) 0.1 (0-0.5) % Neut % (Auto) 58.8 (45.5-73.1) % Lymph % (Auto) 34.3 (18.3-44.2) % [place] % (Auto) 5.2 (2.6-8.5) % Eos % (Auto) 1.0 (0-4.4) % Baso % (Auto) 0.6 (0.2-1.2) % Lymph # (Auto) 2.70 (0.9-3.2) K/mm3 [place] # (Auto) 0.4 (0.1-0.6) K/mm3 Eos # (Auto) 0.1 (0-0.3) K/mm3 Baso # (Auto) 0.1 (0.0-0.1) K/mm3 Abs Immat Gran (auto) 0.01 (0.00-0.031) K/mm3 Absolute Neuts (auto) 4.6 (1.3-6.7) K/mm3 Absolute Nucleated RBC 0.000 (0.0-0.012) K/mm3 Nucleated RBC % 0.0 (0.0-0.2) % Sodium 133 L (137-145) mmol/L Potassium 4.7 (3.4-5.0) mmol/L Chloride 102 (98-107) mmol/L Carbon Dioxide 24 (22-30) mmol/L Anion Gap 7 (4-12) mmol/L BUN 17 (7-17) mg/dL Creatinine 0.83 (0.7-1.0) mg/dL Estim Creat Clear Calc 31 ml/min Estimated GFR > 60 (59 - ) Glucose 107 (65-110) mg/dL Calcium 10.4 H (8.4-10.2) mg/dL Total Bilirubin 0.5 (0.2-1.3) mg/dL AST 20 (14-36) U/L ALT 11 (6-35) U/L Alkaline Phosphatase 118 (38-126) U/L Total Protein 7.1 (6.3-8.2) g/dL Albumin 4.2 (3.5-5.1) g/dL Influenza A (RT-PCR) Negative (Negative) Influenza B (RT-PCR) Negative (Negative) RSV (RT-PCR) Negative (Negative) SARS-CoV-2 RNA (RT-PCR) Negative (Negative) <MOLLY Winkler - Last Filed: 04/21/25 13:39> Lab Results 04/21/25 Range/Units 14:07 WBC 7.9 (4.5-10.0) K/mm3 RBC 4.47 (4.2-5.4) M/mm3 Hgb 13.1 (12.0-15.0) g/dL Hct 41.5 (37.0-47.0) % MCV 92.8 (80-100) fl MCH 29.3 (26-34) pg MCHC 31.6 L (32-36) g/dl RDW 14.2 (11.5-14.5) % Plt Count 202 (150-375) k/mm3 MPV 10.5 H (7.4-10.4) fl Immature Gran % (Auto) 0.1 (0-0.5) % Neut % (Auto) 58.8 (45.5-73.1) % Lymph % (Auto) 34.3 (18.3-44.2) % Valencia % (Auto) 5.2 (2.6-8.5) % Eos % (Auto) 1.0 (0-4.4) % Baso % (Auto) 0.6 (0.2-1.2) % Lymph # (Auto) 2.70 (0.9-3.2) K/mm3 [place] # (Auto) 0.4 (0.1-0.6) K/mm3 Eos # (Auto) 0.1 (0-0.3) K/mm3 Baso # (Auto) 0.1 (0.0-0.1) K/mm3 Abs Immat Gran (auto) 0.01 (0.00-0.031) K/mm3 Absolute Neuts (auto) 4.6 (1.3-6.7) K/mm3 Absolute Nucleated RBC 0.000 (0.0-0.012) K/mm3 Nucleated RBC % 0.0 (0.0-0.2) % Sodium 133 L (137-145) mmol/L Potassium 4.7 (3.4-5.0) mmol/L Chloride 102 (98-107) mmol/L Carbon Dioxide 24 (22-30) mmol/L Anion Gap 7 (4-12) mmol/L BUN 17 (7-17) mg/dL Creatinine 0.83 (0.7-1.0) mg/dL Estim Creat Clear Calc 31 ml/min Estimated GFR > 60 (59 - ) Glucose 107 (65-110) mg/dL Calcium 10.4 H (8.4-10.2) mg/dL Total Bilirubin 0.5 (0.2-1.3) mg/dL AST 20 (14-36) U/L ALT 11 (6-35) U/L Alkaline Phosphatase 118 (38-126) U/L Total Protein 7.1 (6.3-8.2) g/dL Albumin 4.2 (3.5-5.1) g/dL Influenza A (RT-PCR) Negative (Negative) Influenza B (RT-PCR) Negative (Negative) RSV (RT-PCR) Negative (Negative) SARS-CoV-2 RNA (RT-PCR) Negative (Negative) <Bob Trotter MD - Last Filed: 04/21/25 21:20> Imaging Data Radiologist's impression: Impressions Chest X-Ray 04/21/25 14:44 IMPRESSION: 1. No acute pulmonary findings. Emphysematous lungs. Severe atherosclerotic aorta. Chest/Abdomen/Pelvis CT 04/21/25 15:04 IMPRESSION: 1. Directed noncontrast CT of the abdomen and pelvis demonstrating no gross acute intrathoracic or abdominal/pelvic process to explain patient's symptoms. Note the IVC appears somewhat flattened which could be associated with hypovolemia. 2. Several chronic appearing findings as above. <Bob Trotter MD - Last Filed: 04/21/25 21:20> Discharge Plan Discharge Clinical Impression: COPD exacerbation, Gastritis <MOLLY Winkler - Last Filed: 04/21/25 13:39> Patient Disposition: Home <MOLLY Winkler - Last Filed: 04/21/25 13:39> Condition: Stable <MOLLY Winkler - Last Filed: 04/21/25 13:39> Instructions: Antibiotic Form, Diet for Stomach Ulcers and Gastritis (ED) <MOLLY Winkler - Last Filed: 04/21/25 13:39> Additional Instructions: Prednisone as directed for your COPD. Continue your home albuterol as directed. Continue your pantoprazole as directed. Maalox as needed for intermittent upper abdominal pain. Have close follow-up with GI. If you have any worsening symptoms please call or return to the emergency department. <MOLLY Winkler - Last Filed: 04/21/25 13:39> Patient Language: [place] Timorese <MOLLY Winkler - Last Filed: 04/21/25 13:39> Prescriptions: New prednisone 50 mg tablet 50 mg PO DAILY 5 Days Qty: 5 0RF alum-mag hydroxide-simeth [Maalox Advanced] 200-200-20 mg/5 mL suspension 10 ml PO QID PRN (Reason: dyspepsia) Qty: 150 0RF Rx Instructions: administer between meals and at bedtime No Action gabapentin 300 mg Capsule 900 mg PO HS levothyroxine 100 mcg Tablet 100 mcg PO DAILY tiotropium bromide [Spiriva with HandiHaler] 18 mcg Capsule, W/Inhalation Device 18 mcg INHALATION DAILY gabapentin 300 mg Capsule 600 mg PO DAILY aspirin 81 mg Tablet,Delayed Release (Dr/Ec) 81 mg PO QAM Qty: 30 11RF atorvastatin 80 mg tablet 80 mg PO DAILY Qty: 30 3RF levofloxacin 500 mg tablet 500 mg PO DAILY 4 Days Qty: 4 0RF methylprednisolone [Medrol (Jayme)] 4 mg tablets,dose pack See Rx Instructions .ROUTE .COMPLEX Qty: 21 0RF Rx Instructions: orally per package directions meloxicam 7.5 mg tablet 7.5 mg PO DAILY Qty: 10 0RF albuterol sulfate 90 mcg/actuation HFA aerosol inhaler 2 puff inhalation QID PRN (Reason: shortness of breath or wheezing) Qty: 8.5 0RF tramadol 50 mg tablet 50 mg PO Q4H PRN (Reason: pain) Qty: 14 0RF prednisone 20 mg tablet 40 mg PO DAILY 5 Days Qty: 10 0RF meloxicam 7.5 mg tablet 7.5 mg PO DAILY 10 Days Qty: 10 0RF hydrocodone-acetaminophen 5-325 mg tablet 1 tablet PO Q8H PRN (Reason: pain) 4 Days Qty: 12 0RF cephalexin 500 mg capsule 500 mg PO Q12H Qty: 10 0RF lisinopril 2.5 mg Tablet 2.5 mg PO QAM Qty: 30 3RF potassium chloride 10 mEq tablet extended release 10 meq PO DAILY Qty: 30 3RF furosemide 20 mg tablet 20 mg PO DAILY Qty: 30 3RF pantoprazole 40 mg Tablet,Delayed Release (Dr/Ec) 40 mg PO Q12HR Qty: 60 1RF carvedilol 3.125 mg tablet 3.125 mg PO BID Rx Instructions: Take 1/2 tablet by mouth every 12 hours levocetirizine 5 mg tablet 5 mg PO DAILY PRN (Reason: allergy symptoms) Qty: 14 0RF prednisone 50 mg tablet 50 mg PO DAILY Qty: 5 0RF naproxen sodium 375 mg tablet, ER multiphase 24 hr 375 mg PO DAILY Qty: 7 0RF lidocaine [Lidocan III] 5 % adhesive patch,medicated 1 patch topical DAILY Qty: 10 0RF Rx Instructions: leave on most painful area for up to 12 hrs <MOLLY Winkler - Last Filed: 04/21/25 13:39> Follow-up/Referrals: Serna,Basilio Cespedes APRN [Non-Staff, Unknown] Ant Hatch MD [Physician, Gastroenterology] <MOLLY Winkler - Last Filed: 04/21/25 13:39>
[2025-04-21 14:12] LABS: Hematocrit 41.5 % (37.0-47.0); Hemoglobin 13.1 g/dL (12.0-15.0); Immature Granulocyte Percent A 0.1 % (0-0.5); Lymphocytes Absolute Auto 2.70 K/mm3 (0.9-3.2); Mean Corpuscular HGB Conc 31.6 g/dl (32-36); Mean Corpuscular Hemoglobin 29.3 pg (26-34); Mean Corpuscular Volume 92.8 fl (80-100); Nucleated Red Blood Cells Absolute Auto 0.000 K/mm3 (0.0-0.012); Nucleated Red Blood Cells Perc 0.0 % (0.0-0.2); Platelet Count Result 202 k/mm3 (150-375); Red Blood Count 4.47 M/mm3 (4.2-5.4); White Blood Count 7.9 K/mm3 (4.5-10.0)
[2025-04-21 14:26] LABS: Alanine Aminotransferase 11 U/L (6-35); Albumin Level 4.2 g/dL (3.5-5.1); Alkaline Phosphatase 118 U/L (38-126); Anion Gap 7 mmol/L (4-12); Aspartate Amino Transferase 20 U/L (14-36); Bilirubin,Total 0.5 mg/dL (0.2-1.3); Blood Urea Nitrogen 17 mg/dL (7-17); Calcium 10.4 mg/dL (8.4-10.2); Carbon Dioxide 24 mmol/L (22-30); Chloride 102 mmol/L (98-107); Estimated CRCL calculation 31 ml/min; Estimated Glomerular Filt Rate > 60; Glucose 107 mg/dL (65-110); Potassium 4.7 mmol/L (3.4-5.0); Sodium 133 mmol/L (137-145); Total Protein 7.1 g/dL (6.3-8.2)
[2025-04-21 14:49] LABS: Influenza A QL RT-PCR Negative (Negative); Influenza B QL RT-PCR Negative (Negative); RSV RNA, RT-PCR Negative (Negative); SARS-CoV-2 RNA PCR Negative (Negative)
--- NOTE | 2025-04-21 15:51 | PCRCNOTE ---
tx late due to another pt situation
[2025-04-21 16:04] VITALS: RESP 18
[2025-04-21] MEDS: ALBUTEROL SULFATE NEB 2.5 MG/3 ML INH 5 MG INHALATION (16:04)
--- OUTSIDE RECORDS SUMMARY | 2025-04-21 16:06 | XMS_ITS | Clinical Summary ---
Author Organization [facility] [address] Address [address] [place] [address] Care Team Providers Care Safety Security Officer Name Role Phone Neo Mel Reyes CASHIER RECEPTIONIST Primary Care Provider Allergies Active Allergy Reactions Criticality Noted Date Comments Iodinated Contrast Media Unknown Low 09/28/2011 Nitrofurantoin Stomach upset Low 03/23/2024 Penicillins Unknown 05/11/2019 Acetaminophen Stomach upset Low 06/17/2020 Medications GABAPENTIN ORAL Take 600 mg by mouth daily TAKE 3 CAPSULES IN THE MORNING AND 3 CAPSULES IN THE EVENING Active cholecalcifero l (VITAMIN D-3) 5,000 unit capsule cholecalciferol (vitamin D3) Take 5000units PO weekly Active aspirin 81 mg enteric coated tablet aspirin 81 mg tablet,delayed release TK 1 T PO QD Active levothyroxine (SYNTHROID) 100 mcg tablet Take 1 tablet (100 mcg total) by mouth special effects designer before breakfast Active albuterol HFA (PROVENTIL HFA,VENTOLIN HFA,PROAIR HFA) 90 mcg/actuation inhaler INL 2 PFS PO Q 4 H PRN 020 Active metFORMIN (GLUCOPHAGE) 500 mg tablet Take 1 tablet (500 mg total) by mouth 2 (two) times a day Active pantoprazole DR (PROTONIX) 40 mg EC tablet Take 1 tablet (40 mg total) by mouth every 12 (twelve) hours Active montelukast (SINGULAIR) 10 mg tablet Take 1 tablet (10 mg total) by mouth nightly at bedtime Active levocetirizine (XYZAL) 5 mg tablet Take 1 tablet (5 mg total) by mouth daily 02/16/2 022 Active atorvastatin (LIPITOR) 80 mg tabletIndicati ons:Coronary artery disease involving newtok coronary artery of [place] heart without angina pectoris TAKE 1 TABLET(80 MG) BY MOUTH DAILY 90 tablet 2 023 Active lisinopriL (PRINIVIL,ZEST RIL) 2.5 mg tabletIndicati ons:Cardiomyop athy, unspecified type (HCC) TAKE 1 TABLET(2.5 MG) BY MOUTH DAILY 90 tablet 1 024 Active oxyCODONE-acet aminophen (PERCOCET) 7.5-325 mg per tablet Take 1 tablet by mouth every 6 (six) hours as needed 024 Active carvediloL (COREG) 3.125 mg tabletIndicati ons:Cardiomyop athy, unspecified type (HCC) TAKE 1 TABLET(3.125 MG) BY MOUTH TWICE DAILY WITH MEALS 180 tablet 024 Active potassium chloride ER 10 mEq CR tablet TAKE 1 TABLET(10 MEQ) BY MOUTH DAILY 90 tablet 1 024 Active spironolactone (ALDACTONE) 50 mg tablet 025 Active clopidogreL (PLAVIX) 75 mg tablet Take 1 tablet (75 mg total) by mouth daily 2024 Discontinued Active Problems Problem Noted Date Diagnosed Date Status post insertion of drug eluting coronary a rtery stent 09/28/2024 Hypertension associated with diabetes 03/06/2021 H/O cardiomyopathy 03/06/2021 Chronic obstructive pulmonary disease 03/06/2021 Mixed diabetic hyperlipidemi a associated with type 2 diabetes mellitus 03/06/2021 Chronic fatigue 05/20/2020 Cardiomyopathy 11/13/2019 Coronary artery disease invo lving new[place] coronary artery of [place] heart without angina pectoris 11/13/2019 H/O non-ST elevation myocardial infarction (NSTE [place]) 11/13/2019 Benign hypertension with CKD (chronic kidney disease) stage III 11/13/2019 LIGHT (dyspnea on exertion) 11/13/2019 Medication side effects 11/13/2019 Resolved Problems Problem Noted Date Diagnosed Date Resolved Date Dyslipidemia 11/13/2019 08/03/2021 Encounters Date Type Department Care Team Description 04/06/2025 10:15 AM [employer] SUPERVISOR Office Visit [facility] [address] [facility] [address] [place] [address] Carmelo Wolfe MD Coronary artery disease involving newtok coronary artery of new[place] heart without angina pectoris (Primary Dx); Status post insertion of drug eluting coronary artery stent from Last 3 Months Surgical History Surgery Date Site/Laterality Comments CHOLECYSTECTOMY REPLACEMENT TOTAL KNEE BILATERAL HYSTERECTOMY CARDIAC CATHETERIZATION CORONARY ANGIOPLASTY Medical History Medical History Date Comments Heart attack (HCC) Heart failure Thyroid disease Diabetes mellitus Wears dentures Stomach ulcer Pneumonia Cataracts, bilateral COPD (chronic obstructive pulmonary disease) Chronic bronchitis (HCC) H/O: knee surgery H/O blood clots Deep venous thrombosis Coronary artery disease Systolic heart failure (HCC) [...] drink = 0.6 oz pur e alcohol) Comments Unknown Sex and Gender Information Value Date Recorded Sex Assigned at Not on file Legal Sex Female 1:00 AM [employer] Gender Identity Not on file Sexual Orientation Not on file Last Filed Vital Signs Vital Sign Reading Time Taken Comments Blood Pressure 144/70 04/06/2025 10:06 AM [employer]PER[employer] Pulse 90 04/06/2025 10:06 AM [employer] Temperature 36.2 C (97.1 F) 05/24/2020 1:55 PM [employer] Respiratory Rate - - Oxygen Saturation 96% 04/06/2025 10:06 AM [employer]PER[employer]OR Inhaled Oxygen Concentration - - Weight 58 kg (127 lb 14.4 oz) 04/06/2025 10:06 A M [employer] Height 154.9 cm (5' 1) 04/06/2025 10:06 AM [employer] Body Mass Index 24.17 04/06/2025 10:06 AM [employer] Plan of Treatment Health Maintenance Due Date Last Done Comments Albumin Creatinine Ratio, Urine 1936 Depression Screening 1936 Fall Risk Assessment 1936 Hemoglobin A1C 1936 Osteoporosis Screening-Bone Density Scan 1936 Dilated Eye Exam 1936 Foot Exam 1936 Hepatitis B Screening 1954 Well Visit 65+ 2001 Zoster Vaccine (2 of 3) 02/27/2012 01/02/2012 Lipid Panel 09/16/2024 09/17/2023, 08/01, 08/03/2021, Additional history exists DTaP/Tdap/Td Vaccine (2 - Td or Tdap) 11/04/2024 11/04/2014 Covid-19 Vaccine (4 - 2024-2 6 season) 2025 03/01/2021, 08/24/2020, 07/30/2020 Influenza Vaccine (#1) 2025 , 01/24/2019, 03/05/2018, Additional history exists eGFR 09/28/2025 09/28/2024 Pneumococcal vaccine 65+ Completed 01/24/2019, 06/2011 Procedures Procedure Name Priority Date/Time Associated Diagnosis Comments BASIC METABOLIC PANEL Routine 09/28/2024 Ischemic cardiomyopathy POCT LIPID PANEL Routine 09/17/2023 1:19 PM CDT Mixed diabetic hyperlipidemia associated with type 2 diabetes mellitus (HCC) from Last 3 Months or Most Recently Relevant to Health Maintenance Results * Basic metabolic panel (09/28/2024) SCRIBED Sodium 136 137 - 145 mmol/L EXTERNAL LAB SCRIBED Potassium 4.9 3.4 - 5.0 mmol/L EXTERNAL LAB SCRIBED Chloride 101 98 - 107 mmol/L EXTERNAL LAB SCRIBED Carbon Dioxide 31 22 - 30 mmol/L EXTERNAL LAB SCRIBED Anion Gap 4 4 - 12 mmol/L EXTERNAL LAB SCRIBED Urea Nitrogen (BUN) 13 7 - 17 mg/dl EXTERNAL LAB SCRIBED Creatinine 0.84 0.7 - 1.0 mg/dl EXTERNAL LAB SCRIBED Glucose 117 65 - 110 mg/dl EXTERNAL LAB SCRIBED Calcium 9.4 8.4 - 10.2 mg/dl EXTERNAL LAB SCRIBED eGFR N/A N/A EXTERNAL LAB SCRIBED eGFR >60 > OR = 60 EXTERNAL LAB Blood 09/28/2024 us Caremlo Wolfe MD LAB BLOOD ORDERABLES Fin al Result EXTERNAL LAB * POCT lipid panel (09/17/2023 1:19 PM [...] Relevant to Health Maintenance Insurance MEDICARE MEDICARE [facility] MEDICARE SUPPLEMENT Care Teams Safety Security Officer Relationship Specialty Start Date End Date Mel Larson NP [address] [place] [address] PCP - General Nurse Practitioner 09/28/24
[2025-04-21 16:13] VITALS: RESP 18
[2025-04-21] MEDS: BELLADONNA ALK/PHENOB ELIX 10 ML, MAG HYDROX/ALUMINUM HYD/SIMETH 30 ML, LIDOCAINE 2% VI... PO (16:18)
[2025-04-21 16:20] VITALS: BP 117/54; PULSE 70; RESP 16; O2SAT 94
== END 2025-04-21 17:41 | disposition home or self-care (01) ==
PROVIDERS: Emergency Provider Emergency Medicine
DX: J44.1 Chronic obstructive pulmonary disease with (acute) exacerbation (principal); K29.70 Gastritis, unspecified, without bleeding; E03.9 Hypothyroidism, unspecified; E11.9 Type 2 diabetes mellitus without complications; M06.9 Rheumatoid arthritis, unspecified; K21.9 Gastro-esophageal reflux disease without esophagitis; E78.5 Hyperlipidemia, unspecified; Z86.718 Personal history of other venous thrombosis and embolism; I10 Essential (primary) hypertension; I25.2 Old myocardial infarction; Z87.891 Personal history of nicotine dependence; Z20.822 Contact with and (suspected) exposure to COVID-19
CPT/HCPCS: 36415; 71046; 71250; 74176; 80053; 85025; 87637; 94640; 99284; A9270